=== PATIENT | female | born 1995 | race Caucasian/White ===

== ENCOUNTER 2018-05-21 22:22 | Observation (INO) ==
[2018-05-21 22:59] LABS: Basophils % 0.5 % (0.1-2.0); Eosinophils # 0.1 K/mm3 (0.0-0.4); Hematocrit 39.1 % (37.0-47.0); Hemoglobin 12.5 g/dL (12.2-16.2); Lymphocytes # 3.4 K/mm3 (0.7-4.5); Lymphocytes % 38.8 K/mm3 (10-50); Mean Corpuscular Hemoglobin 28.1 pg (27.0-31.2); Mean Corpuscular Volume 87.7 fl (81-99); Mean Platelet Volume 7.4 fl (7.4-10.4); Monocytes # 0.5 K/mm3 (0.1-1.0); Monocytes % 5.2 % (1.7-9.3); Neutrophils # 4.8 K/mm3 (1.8-7.8); Neutrophils % 54.5 % (37.0-80.0); Platelet Count 254 K/mm3 (142-424); Red Blood Count 4.46 M/mm3 (4.20-5.40); Red Cell Distribution Width 12.4 % (11.5-17.5); White Blood Count 8.8 K/mm3 (4.8-10.8)
[2018-05-21 23:00] LABS: Anion Gap 14.4 mEq/L (5-15); Calcium 8.8 mg/dL (8.5-10.1); Potassium 3.4 mmoL/L (3.5-5.1)
--- NOTE | 2018-05-22 00:37 | Emergency Department Note ---
ED Disposition Clinical Impression: Abscess of skin or subcutaneous tissue Qualifiers: Site of cutaneous abscess: extremity Site of cutaneous abscess of extremity: upper extremity Laterality: left Qualified Code(s): L02.414 - Cutaneous abscess of left upper limb Disposition: Admitted as Observation Condition on Discharge: Good Instructions: DI for Skin Abscess Referrals: Annamarie Garcia [Primary Care Provider] - - Critical Care Critical Care Time: No Attestation: On 05/21/18, the high probability of a clinically significant, sudden or life threatening deterioration of the following system(s) required my full and direct attention, intervention and personal management. The time I documented below is in addition to time spent performing reported procedures but includes the following listed in this critical care notation. Medical Decision Making - Medical Records Medical records reviewed: Yes: I reviewed the patient's medical records. - Tal Inquiry Pt receiving controlled substance: No Vital Signs: 05/21/18 22:28 05/21/18 22:45 Temperature 97.5 F L Temperature Source Oral Pulse Rate [Right Radial] 86 82 Respiratory Rate 16 16 Blood Pressure [Right Arm] 157/92 H 142/87 H Blood Pressure Mean [Right Arm] 113 105 Blood Pressure Source [Right Arm] Automatic Cuff Blood Pressure Position [Right Arm] Sitting 02 Sat by Pulse Oximetry 92 L 95 Oxygen Delivery Method Room Air - Lab Data Lab results reviewed: Yes: I reviewed the patient's lab results. Lab Results 05/21/18 22:38: WBC 8.8, RBC 4.46, Hgb 12.5, Hct 39.1, MCV 87.7, MCH 28.1, MCHC 32.0, RDW 12.4, Plt Count 254, MPV 7.4, Neut % (Auto) 54.5, Lymph % (Auto) 38.8, Chambers % (Auto) 5.2, Eos % (Auto) 1.0, Baso % (Auto) 0.5, Neut # (Auto) 4.8, Lymph # (Auto) 3.4, [place] # (Auto) 0.5, Eos # (Auto) 0.1, Baso # (Auto) 0.0 05/21/18 22:38: Sodium 142, Potassium 3.4 L, Chloride 103, Carbon Dioxide 28, Anion Gap 14.4, BUN 11, Creatinine 0.62, Estimated Creat Clear 216, Estimated GFR 120, Est GFR ( Amer) 146, Glucose 96, Calcium 8.8 05/21/18 22:38: Lactate 0.7 Result diagrams: 05/21/18 22:38 05/21/18 22:38 Orders (Tests/Meds): ORDERS Category Date Time Status Urine , HCG Qual. Stat Lab 05/22/18 00:34 Ordered Blood Culture Stat Micro 05/21/18 22:38 Received - Physician Consults Physician Consulted: archana Reason -: Admission Skin/Abscess/FB HPI - General Chief complaint: Skin/Abscess/Foreign Body Stated complaint: Sore under arm Time Seen by Provider: 05/21/18 23:15 Mode of Arrival: Family Vehicle Limitations: No Limitations Description of Symptoms (Recalled from ER Triage Doc. by RN): left axilla abscess. pt states she went to her pmd on wednesday, 4 days ago, and was placed on bactrim. pt states the redness and pain continues to worsen despite antibx therapy. redness is extending down left inner arm. - History of Present Illness HPI narrative: over the last week has progressive swelling and tenderness lt axilla - pt saw pcp and was placed on abx - pt reports ongoing pain and swelling and no drainage - no hx of diabetes mellitus MD complaint: abscess/boil Onset (ago): day(s) Tetanus up to date: unsure Location: LUE Severity: moderate Associated symptoms: denies other symptoms Treatments prior to arrival: antibiotic - Related Data Home Medications Medication Instructions Recorded Confirmed Cetirizine HCl [Zyrtec] 10 mg PO DAILY 05/21/18 05/21/18 Omeprazole [Omeprazole 20mg Tab] 20 mg PO DAILY 05/21/18 05/21/18 Sulfamethoxazole/Trimethoprim 1 tab PO BID 05/21/18 05/21/18 [Bactrim 400-80 mg (SS) Tablet] Allergies Allergy/AdvReac Type Severity Reaction Status Date / Time No Known Allergies Allergy Verified 05/21/18 22:32 [facility] History I have reviewed the patient's past medical history: Yes Medical History: Denies:: Cancer, Diabetes Mellitus Type 1, Diabetes Mellitus Type 2, MRSA Amputation: No Fractures: No - Social History Smoking Status: Never smoker Alcohol Intake: never - Psychiatric History Expresses thoughts of harming self/others: None Suicide Plan Description: No Plan ROS Obtained: Yes All systems reviewed & no additional complaints - Constitutional Constitutional: Denies fever(s) - Eyes Eyes: Denies change in vision - ENT Ears, Nose, Mouth, and Throat: Denies sore throat - Cardiovascular Cardiovascular: Denies chest pain at rest - Respiratory Respiratory: No cough - Gastrointestinal Gastrointestingal: Denies: abdominal pain - Genitourinary Female Genitourinary: Denies hematuria - Musculoskeletal Musculoskeletal: Denies joint pain, Denies joint swelling - Integumentary/Breasts Skin/Breast: Reports boil, Reports other (reddness and tender lt axilla with abscess 2x3 cm ) - Neurologic Neurologic: Denies seizure-like activity Physical Exam - General General appearance: alert - Head Head exam: normocephalic - Eye Eye exam: Present: PERRL, EOMI - ENT ENT exam: Present: mucous membranes moist - Neck Neck exam: Present: trachea midline - Respiratory Respiratory exam: Absent: respiratory distress - Cardiovascular Cardiovascular exam: Present: regular rate - Abdominal Exam Abdominal exam: Present: soft - Extremities Exam Extremities exam: Present: normal inspection - Neurological Exam Neurological exam: Present: alert, oriented X3, CN II-XII intact - Psychiatric Psychiatric exam: Present: normal affect - Skin Skin exam: Present: other (2x3 cm abscess lt axilla with tenderness )
[2018-05-22 06:51] LABS: Basophils % 0.4 % (0.1-2.0); Eosinophils # 0.1 K/mm3 (0.0-0.4); Eosinophils % 1.1 % (0.1-12.0); Hematocrit 35.6 % (37.0-47.0); Hemoglobin 11.5 g/dL (12.2-16.2); Lymphocytes # 3.1 K/mm3 (0.7-4.5); Lymphocytes % 42.2 K/mm3 (10-50); Mean Corpuscular HGB Conc 32.3 g/dL (31.8-35.4); Mean Corpuscular Hemoglobin 28.3 pg (27.0-31.2); Mean Corpuscular Volume 87.7 fl (81-99); Mean Platelet Volume 8.5 fl (7.4-10.4); Monocytes # 0.5 K/mm3 (0.1-1.0); Monocytes % 6.2 % (1.7-9.3); Neutrophils # 3.7 K/mm3 (1.8-7.8); Platelet Count 218 K/mm3 (142-424); Red Blood Count 4.06 M/mm3 (4.20-5.40); Red Cell Distribution Width 12.3 % (11.5-17.5); White Blood Count 7.4 K/mm3 (4.8-10.8)
[2018-05-22 06:58] LABS: Anion Gap 11.9 mEq/L (5-15); Calcium 8.2 mg/dL (8.5-10.1); Potassium 3.9 mmoL/L (3.5-5.1)
--- NOTE | 2018-05-22 07:20 | History & Physical Report ---
*Admission Date: 05/22/18 *Chief complaint: Left axillary abscess *History of present illness: This is a 23-year-old female who presented to the emergency department with increasing pain and swelling along her left axilla. She was diagnosed with worsening abscess in the surgical wrist was consulted for admission and surgical intervention. Please see a forwarded copy of HPI from the emergency department evaluation below: left axilla abscess. pt states she went to her pmd on wednesday, 4 days ago, and was placed on bactrim. pt states the redness and pain continues to worsen despite antibx therapy. redness is extending down left inner arm. [facility] History Medical History: Denies:: Cancer, Diabetes Mellitus Type 1, Diabetes Mellitus Type 2, MRSA Other Surgeries: Yes: Other (surgery or scoliosis) Amputation: No Fractures: No - *Social History Educational Level: Attended College Smoking Status: Never smoker Alcohol Intake: never Occupational Status: employed Housing: house Household Members: family, children - Psychiatric History Expresses thoughts of harming self/others: None Suicide Plan Description: No Plan *Family Hx:: Coronary Artery Disease, Diabetes Review of Systems - Constitutional Denies body ache(s) - Eyes Denies change in vision - ENT Denies bleeding gums - *Cardiovascular Denies chest pain - *Respiratory Denies cough - *Gastrointestinal Denies abdominal pain - *Genitourinary Denies difficulty urinating - *Musculoskeletal Denies abnormal walking - Integumentary/Breasts Reports redness, Reports boil - *Neurologic Denies seizure-like activity - Psychiatric Denies anxiety - Endocrine Denies cold intolerance - Hematologic/Lymphatic Denies easy bleeding - Allergic/Immunologic Denies GI upset with certain foods Meds Home Medications Medication Instructions Recorded Confirmed Type Cetirizine HCl [Zyrtec] 10 mg PO HS 05/21/18 05/22/18 History Omeprazole [Omeprazole 20mg Tab] 20 mg PO HS 05/21/18 05/22/18 History Sulfamethoxazole/Trimethoprim 1 tab PO BID 05/21/18 05/22/18 History [Bactrim 400-80 mg (SS) Tablet] Ascorbate Calcium [Vitamin C] 500 mg PO HS 05/22/18 05/22/18 History Buspirone HCl [Buspar 10mg tablet] 10 mg PO HS 05/22/18 05/22/18 History Ergocalciferol (Vitamin D2) 400 unit PO HS 05/22/18 05/22/18 History [Vitamin D] L.acidoph,Paracasei, B.lactis 1 each PO HS 05/22/18 05/22/18 History [Probiotic] Norethindrone AC-Eth Estradiol 1 each PO HS 05/22/18 05/22/18 History [Junel 1 mg-20 Mcg Tablet] [place]-3 Fatty Acids [Fish Oil] 300 mg PO HS 05/22/18 05/22/18 History Allergies Allergy/AdvReac Type Severity Reaction Status Date / Time No Known Allergies Allergy Verified 05/21/18 22:32 Exam Vital signs and Labs for Last 24 Hours: Temp Pulse Resp BP Pulse Ox 98.6 F 100 H 18 113/49 L 97 05/22/18 05:05 05/22/18 05:05 05/22/18 05:05 05/22/18 05:05 05/22/18 05:05 Laboratory Results - last 24 hr 05/21/18 22:38: WBC 8.8, RBC 4.46, Hgb 12.5, Hct 39.1, MCV 87.7, MCH 28.1, MCHC 32.0, RDW 12.4, Plt Count 254, MPV 7.4, Neut % (Auto) 54.5, Lymph % (Auto) 38.8, [place] % (Auto) 5.2, Eos % (Auto) 1.0, Baso % (Auto) 0.5, Neut # (Auto) 4.8, Lymph # (Auto) 3.4, [place] # (Auto) 0.5, Eos # (Auto) 0.1, Baso # (Auto) 0.0 05/21/18 22:38: Sodium 142, Potassium 3.4 L, Chloride 103, Carbon Dioxide 28, Anion Gap 14.4, BUN 11, Creatinine 0.62, Estimated Creat Clear 216, Estimated GFR 120, Est GFR ( Amer) 146, Glucose 96, Calcium 8.8 05/21/18 22:38: Lactate 0.7 05/22/18 00:43: Urine HCG, Qual Negative 05/22/18 06:40: WBC 7.4, RBC 4.06 L, Hgb 11.5 L, Hct 35.6 L, MCV 87.7, MCH 28.3, MCHC 32.3, RDW 12.3, Plt Count 218, MPV 8.5, Neut % (Auto) 50.0, Lymph % (Auto) 42.2, [place] % (Auto) 6.2, Eos % (Auto) 1.1, Baso % (Auto) 0.4, Neut # (Auto) 3.7, Lymph # (Auto) 3.1, [place] # (Auto) 0.5, Eos # (Auto) 0.1, Baso # (Auto) 0.0 05/22/18 06:40: Sodium 140, Potassium 3.9, Chloride 105, Carbon Dioxide 27, Anion Gap 11.9, BUN 10, Creatinine 0.61, Estimated Creat Clear 222, Estimated GFR 123, Est GFR ( Amer) 148, Glucose 101, Calcium 8.2 L I & O for Last 24 hours: Intake & Output 05/19/18 05/20/18 05/21/18 05/22/18 11:59 11:59 11:59 11:59 Intake Total 247 / 247 Balance 247 / 247 Weight 214 lb 4 oz - Constitutional no acute distress - *Routine HEENT Exam Head: Present: normocephalic, atraumatic - *Routine Neck Exam Present: full ROM - Routine Chest/Breast/Axilla Exam Chest wall: Absent: tenderness - *Routine Respiratory Exam Absent: respiratory distress - *Routine Cardiovascular Exam Present: RRR - *Routine Abdominal Exam Present: soft - *Routine Extremities Exam Present: full ROM. Absent: cyanosis, clubbing, edema - Routine Back/Spine/Pelvis Exam Back/Spine: Present: full ROM - *Routine Skin Exam Comments: left axillary abscess with mild blush - *Routine Neurological Exam Present: alert, oriented X3 - Routine Psychiatric Exam Present: normal affect Assessment and Plan (1) Abscess of left axilla Current visit: Yes Status: Acute Category: Surgical Code(s): L02.412 - Cutaneous abscess of left axilla Incision and drainage of left axillary abscess this morning. I have discussed the risks and benefits including, but not limited to: Bleeding Infection Damage to surrounding tissue Inherent risks of sedation The patient agrees to proceed.
--- NOTE | 2018-05-22 09:07 | Progress Note ---
[facility] Anesthesia Checklist - Patient Identification Patient Identification: Arm Band, Verbal (Name & ) - Structural Data Admitted From: Home Planned Operative Procedure/s: Left axillary I&D Consent for Planned Operative Procedure(s) Verified: Yes Verified Documents: Surgical Consent, History and Physical - NPO Status Verified Time NPO: 20:00 - Chart Verification Results Verified: HCG - Additional verifications Patient : No Anesthesia Reactions: No - Airway Assessment C-Spine Mobility Assessed: Yes TMJ Mobility Assessed: Yes Dentition: Good Dentition - Neurological Assessment Level of Consciousness: Awake Hx Seizures: No Numbness or tingling in extremities: No - Anesthesia Plan Anesthesia Risk discussed: Yes Anesthesia Plan: Verified ASA Class: II Anesthesia Type: General [facility] History I have reviewed the patient's past medical history: Yes Medical History: Reports:: Gastroesophageal Reflux Disease(GERD) Denies:: Cancer, Diabetes Mellitus Type 1, Diabetes Mellitus Type 2, MRSA Other Surgeries: Yes: Other (back fusion) Amputation: No Fractures: No - *Social History Educational Level: Attended College Smoking Status: Never smoker Alcohol Intake: never Occupational Status: employed Housing: house Household Members: family, children - Psychiatric History Expresses thoughts of harming self/others: None Suicide Plan Description: No Plan *Family Hx:: Coronary Artery Disease, Diabetes
--- NOTE | 2018-05-22 09:37 | Pharmacy Consult Notes ---
[facility] Pharmacy VTE Monitoring - Patient Demographics Admission date: 05/21/18 Report Date: 05/22/18 Time: 09:36 Allergies/Adverse Reactions: Patient Allergies No Known Allergies Allergy (Verified 05/21/18 22:32) Height: 1.75 m Weight: 97.182 kg Patient Problems: Current Active Problems Abscess of skin or subcutaneous tissue (Acute) Abscess of left axilla (Acute) - VTE Risk Labs: VTE Related Lab Results Hgb 11.5 g/dL (12.2-16.2) L 05/22/18 06:40 Hct 35.6 % (37.0-47.0) L 05/22/18 06:40 Plt Count 218 K/mm3 (142-424) 05/22/18 06:40 BUN 10 mg/dL (7-18) 05/22/18 06:40 Creatinine 0.61 mg/dL (0.55-1.02) 05/22/18 06:40 Estimated Creat Clear 222 mL/min (0-300) 05/22/18 06:40 Was VTE Risk Assessment Performed: Yes VTE Score: 0 VTE Risk Level: Very Low Risk Clinical Trial Participant: No - Prophylaxis VTE Prophylaxis Ordered?: Yes Types of VTE Prophylaxis: TEDS Knee High
--- NOTE | 2018-05-22 09:51 | Operative Note ---
Date of procedure: 05/22/18 Pre-op Diagnosis:: Left axillary abscess Post-op Diagnosis:: Same Procedure performed:: Incision and drainage of left axillary abscess Surgeon:: Bautista Tavarez MD Anesthesia: LMA Estimated blood loss (mL): 15 Operative findings:: Complex abscess at vertex of left axilla with projection toward the arm and projection towards the chest Operative note:: After informed consent was obtained the patient was taken to the operating room and placed in the supine position general anesthesia with laryngeal mask airway was achieved. The left axilla was prepped and draped in a sterile fashion. After infiltration of local anesthetic an elliptical incision was made overlying the 2 separate areas of centralized fluctuance. One opening was just of the "chest side" of the apex of the axilla and one opening was just of the "arm side" of the apex. Fluid was obtained for Gram stain and culture as an underlying complex cavity was encountered. The entire area was carefully evacuated and moistened Kerlix was placed in position. The Kerlix was then infiltrated with 1% lidocaine and dressings were applied for compression. The patient was transferred to recovery in stable condition. Condition: stable Disposition: PACU Specimens:: Fluid for Gram stain/culture Complications:: No immediate
--- NOTE | 2018-05-22 09:56 | Progress Note ---
[facility] Anesthesia Record Part I Intake, IV Amount: 200 Estimated blood loss (mL): 20 Urine output (mL): 0 (NM) Blood Products used (#): none Blood Pressure: 150/107 SaO2: 97 Pulse Rate: 92 Respiratory Rate: 12 Temperature: 97.0 F Patient is:: Awake, Stable Stable to PACU at:: 09:53
--- NOTE | 2018-05-22 09:57 | Progress Note ---
[facility] Anesthesia Record Part II Discharge Time: 10:23 Destination: Medical Surgical Department PACU nurse assessment reviewed?: Yes Patient Condition:: Good Anesthesia Complications:: None
--- NOTE | 2018-05-23 07:06 | Progress Note ---
Subjective Patient reports: no new complaints, other (resting) Exam Vital signs and Labs for Last 24 Hours: Temp Pulse Resp BP Pulse Ox 97.9 F 79 16 143/75 H 97 05/23/18 04:00 05/23/18 04:00 05/23/18 04:00 05/23/18 04:00 05/23/18 04:00 Laboratory Results - last 24 hr 05/22/18 06:40: Sodium 140, Potassium 3.9, Chloride 105, Carbon Dioxide 27, Anion Gap 11.9, BUN 10, Creatinine 0.61, Estimated Creat Clear 222, Estimated GFR 123, Est GFR ( Amer) 148, Glucose 101, Calcium 8.2 L I & O for Last 24 hours: Intake & Output 05/20/18 05/21/18 05/22/18 05/23/18 11:59 11:59 11:59 11:59 Intake Total 447 / 447 2085 Balance 447 / 447 2085 Weight 214 lb 4 oz - Constitutional no acute distress - *Routine Respiratory Exam Absent: respiratory distress - *Routine Cardiovascular Exam Present: RRR - *Routine Skin Exam Comments: dressings intact Progress Note: A&P (1) Abscess of left axilla Status: Acute Assessment and plan: Likely discharge home later today after dressing change Current Visit: Yes
--- NOTE | 2018-05-23 08:07 | Discharge Summary ---
General - General Admission date:: 05/22/18 Discharge date: 05/23/18 HPI HPI: This is a 23-year-old female who presented to the emergency department with increasing pain and swelling along her left axilla. She was diagnosed with worsening abscess in the surgical wrist was consulted for admission and surgical intervention. Please see a forwarded copy of HPI from the emergency department evaluation below: left axilla abscess. pt states she went to her pmd on wednesday, 4 days ago, and was placed on bactrim. pt states the redness and pain continues to worsen despite antibx therapy. redness is extending down left inner arm. Hospital Course Hospital Course: The patient underwent incision and drainage of left axillary abscess. Please see operative report for detail. She remained afebrile with stable normal vital signs and was deemed appropriate for discharge on postoperative day 1. Objective Vital signs: Temp Pulse Resp BP Pulse Ox 97.9 F 79 16 143/75 H 97 05/23/18 04:00 05/23/18 04:00 05/23/18 04:00 05/23/18 04:00 05/23/18 04:00 no acute distress - *Routine HEENT Exam Head: Present: normocephalic, atraumatic - *Routine Neck Exam Present: full ROM - Routine Chest/Breast/Axilla Exam Chest wall: Absent: tenderness - *Routine Respiratory Exam Absent: respiratory distress - *Routine Cardiovascular Exam Present: RRR - *Routine Abdominal Exam Present: soft - *Routine Extremities Exam Present: full ROM Comments: left axillary abscess - *Routine Skin Exam Comments: left axillary abscess - *Routine Neurological Exam Present: alert, oriented X3 - Routine Psychiatric Exam Present: normal affect DS: Diagnosis - Discharge Diagnosis (1) Abscess of left axilla Status: Acute Discharge Plan - Patient Discharge Instructions ACTIVITY: Continue current activity DIET: regular diet Patient Instructions: Surgical Site Infection - Follow up Plan Follow up with: Bautista Tavarez MD [Staff Physician] - 1 week Disposition: Home, Self-Longterm Medications: Home Medications Medication Instructions Recorded Confirmed Type Omeprazole [Omeprazole 20mg Tab] 20 mg PO HS 05/21/18 05/22/18 History Sulfamethoxazole/Trimethoprim 1 tab PO BID 05/21/18 05/22/18 History [Bactrim 400-80 mg (SS) Tablet] Ascorbate Calcium [Vitamin C] 500 mg PO HS 05/22/18 05/22/18 History Ergocalciferol (Vitamin D2) 400 unit PO HS 05/22/18 05/22/18 History [Vitamin D] L.acidoph,Paracasei, B.lactis 1 each PO HS 05/22/18 05/22/18 History [Probiotic] Loratadine [Claritin 10mg Tablet] 10 mg PO DAILY 05/22/18 05/22/18 History Norethindrone AC-Eth Estradiol 1 each PO HS 05/22/18 05/22/18 History [Junel 1 mg-20 Mcg Tablet] [place]-3 Fatty Acids [Fish Oil] 300 mg PO HS 05/22/18 05/22/18 History Prescriptions/Medication Reconciliation: New Sulfamethoxazole/Trimethoprim [Bactrim DS tablet] 1 each PO BID tablet Continue Sulfamethoxazole/Trimethoprim [Bactrim 400-80 mg (SS) Tablet] 1 tab PO BID Omeprazole [Omeprazole 20mg Tab] 20 mg PO HS Ascorbate Calcium [Vitamin C] 500 mg PO HS Loratadine [Claritin 10mg Tablet] 10 mg PO DAILY Norethindrone AC-Eth Estradiol [Junel 1 mg-20 Mcg Tablet] 1 each PO HS Ergocalciferol (Vitamin D2) [Vitamin D] 400 unit PO HS L.acidoph,Paracasei, B.lactis [Probiotic] 1 each PO HS [place]-3 Fatty Acids [Fish Oil] 300 mg PO HS
== END 2018-05-23 09:30 | disposition home or self-care (01) ==
LOC: ER 22:22 → 2ND 22:22
PROVIDERS: ADMIT Surgery; ATTEND Surgery

== ENCOUNTER 2018-05-24 16:45 | Outpatient (CLI) | payer BC, SELFPAY ==
--- NOTE | 2018-05-24 17:38 | PC.NURSE ---
05/24/2018-1645, pt here for daily dressing change of lt axilla. pt had i&d of axilla abcess. old drsg removed-mod amt of serosang drng noted on abd pad. old packing removed revealing 2 open areas to upper and lower axilla. open wounds irrigated using sterile saline and packed with 2x2 gauze moistened with sterile saline using sterile q-tip. abd folded and placed over areas that were packed and secured with scott wrap.
== END 2018-05-24 17:20 | disposition home or self-care (01) ==
LOC: INF 17:32
PROVIDERS: PCP Physician Assistant; Visit Provider Surgery
DX: Z48.00 Encounter for change or removal of nonsurgical wound dressing (principal); L02.412 Cutaneous abscess of left axilla
CPT/HCPCS: G0463

== ENCOUNTER 2018-05-25 15:45 | Outpatient (CLI) | payer BC, SELFPAY ==
--- NOTE | 2018-05-25 17:07 | PC.NURSE ---
1555 - REMOVED SANJU WRAP AND ABD PAD FROM WOUND. MOISTENED PACKING WITH NS AND GENTLY REMOVED. 2 WOUNDS NOTED TO LEFT AXILLA AND IRRIGATED WITH NS. WOUND BEDS BLOODY AND DRAINING MODERATE AMOUNT OF BLOOD. PACKED EACH WOUND WITH A NS MOISTENED 2X2, COVERED WITH ABD PAD FOLDED IN HALF, AND HELD IN PLACE USING SANJU WRAP.
== END 2018-05-25 16:35 | disposition home or self-care (01) ==
LOC: INF 15:55
PROVIDERS: PCP Physician Assistant; Visit Provider Surgery
DX: Z48.00 Encounter for change or removal of nonsurgical wound dressing (principal); L02.412 Cutaneous abscess of left axilla
CPT/HCPCS: G0463

== ENCOUNTER 2018-05-26 15:33 | Outpatient (CLI) | payer BC, SELFPAY | END 2018-05-26 16:25 | disposition home or self-care (01) | LOC: INF 15:33 | PROVIDERS: PCP Physician Assistant; Visit Provider Surgery | DX: Z48.00 Encounter for change or removal of nonsurgical wound dressing (principal); L02.412 Cutaneous abscess of left axilla | CPT/HCPCS: G0463 ==

== ENCOUNTER 2018-05-27 15:43 | Outpatient (CLI) | payer BC, SELFPAY | END 2018-05-27 16:25 | disposition home or self-care (01) | LOC: INF 15:43 | PROVIDERS: PCP Physician Assistant; Visit Provider Surgery | DX: Z48.00 Encounter for change or removal of nonsurgical wound dressing (principal); L02.412 Cutaneous abscess of left axilla | CPT/HCPCS: G0463 ==

== ENCOUNTER → 2018-05-28 15:14 | Outpatient (CLI) | payer BC, SELFPAY ==
[2018-05-28 15:51] VITALS: BP 139/85; PULSE 91; RESP 18; TEMP 37.4; O2SAT 100
[2018-05-28 15:58] VITALS: BP 140/85; PULSE 90; RESP 16; TEMP 37.3; O2SAT 100
== END ==
PROVIDERS: PCP Physician Assistant; Visit Provider Surgery
DX: Z48.00 Encounter for change or removal of nonsurgical wound dressing (principal); L02.412 Cutaneous abscess of left axilla
CPT/HCPCS: G0463

== ENCOUNTER → 2018-05-29 16:50 | Outpatient (CLI) | payer BC, SELFPAY ==
[2018-05-29 17:30] VITALS: BP 135/72; BP 146/79; PULSE 70; PULSE 84; RESP 17; RESP 18; TEMP 36.4; TEMP 36.6; O2SAT 96; O2SAT 98
== END ==
PROVIDERS: PCP Physician Assistant; Visit Provider Surgery
DX: Z48.00 Encounter for change or removal of nonsurgical wound dressing (principal); L02.412 Cutaneous abscess of left axilla
CPT/HCPCS: G0463

== ENCOUNTER 2018-05-30 16:00 | Outpatient (CLI) | payer BC, SELFPAY | END 2018-05-30 16:25 | disposition home or self-care (01) | LOC: INF 16:52 | PROVIDERS: PCP Physician Assistant; Visit Provider Surgery | DX: Z48.00 Encounter for change or removal of nonsurgical wound dressing (principal); L02.412 Cutaneous abscess of left axilla | CPT/HCPCS: G0463 ==

== ENCOUNTER 2018-06-01 13:57 | Outpatient (CLI) | payer BC, SELFPAY | END 2018-06-01 14:25 | disposition home or self-care (01) | LOC: INF 13:57 | PROVIDERS: Visit Provider Surgery | DX: L02.412 Cutaneous abscess of left axilla (principal) | CPT/HCPCS: G0463 ==

== ENCOUNTER 2018-06-02 13:15 | Outpatient (CLI) | payer BC, SELFPAY | END 2018-06-02 13:35 | disposition home or self-care (01) | LOC: INF 13:22 | PROVIDERS: Visit Provider Surgery | DX: Z48.00 Encounter for change or removal of nonsurgical wound dressing (principal); L02.412 Cutaneous abscess of left axilla | CPT/HCPCS: G0463 ==

== ENCOUNTER → 2018-06-03 21:11 | Outpatient (CLI) | payer BC, SELFPAY | PROVIDERS: PCP Physician Assistant; Visit Provider Surgery | DX: Z48.00 Encounter for change or removal of nonsurgical wound dressing (principal); L02.412 Cutaneous abscess of left axilla | CPT/HCPCS: G0463 ==

== ENCOUNTER 2018-06-04 22:22 | Outpatient (CLI) | payer BC, SELFPAY ==
[2018-06-04 22:53] VITALS: BP 129/83; PULSE 76; RESP 16; TEMP 36.6; O2SAT 99; BMI 31.3
[2018-06-04 23:02] VITALS: BP 129/83; PULSE 76; RESP 16; TEMP 36.6; O2SAT 99
== END 2018-06-04 23:03 | disposition home or self-care (01) ==
LOC: INF 22:24
PROVIDERS: PCP Physician Assistant; Visit Provider Surgery
DX: Z48.00 Encounter for change or removal of nonsurgical wound dressing (principal); L02.412 Cutaneous abscess of left axilla
CPT/HCPCS: G0463

== ENCOUNTER 2018-06-06 16:53 | Outpatient (CLI) | payer BC, SELFPAY | END 2018-06-06 17:15 | disposition home or self-care (01) | LOC: INF 16:53 | PROVIDERS: Visit Provider Surgery | DX: Z48.00 Encounter for change or removal of nonsurgical wound dressing (principal); L02.412 Cutaneous abscess of left axilla | CPT/HCPCS: G0463 ==

== ENCOUNTER 2018-06-07 16:26 | Outpatient (CLI) | payer BC, SELFPAY | END 2018-06-07 17:01 | disposition home or self-care (01) | LOC: INF 16:26 | PROVIDERS: Visit Provider Surgery | DX: Z48.00 Encounter for change or removal of nonsurgical wound dressing (principal); L02.412 Cutaneous abscess of left axilla | CPT/HCPCS: G0463 ==

== ENCOUNTER 2018-06-08 16:30 | Outpatient (CLI) | payer BC, SELFPAY | END 2018-06-08 17:00 | disposition home or self-care (01) | LOC: INF 16:32 | PROVIDERS: Visit Provider Surgery | DX: Z48.00 Encounter for change or removal of nonsurgical wound dressing (principal); L02.412 Cutaneous abscess of left axilla | CPT/HCPCS: G0463 ==

== ENCOUNTER 2018-06-09 16:48 | Outpatient (CLI) | payer BC, SELFPAY | END 2018-06-09 17:27 | disposition home or self-care (01) | LOC: INF 16:48 | PROVIDERS: Visit Provider Surgery | DX: Z48.00 Encounter for change or removal of nonsurgical wound dressing (principal); L02.412 Cutaneous abscess of left axilla | CPT/HCPCS: G0463 ==

== ENCOUNTER 2018-06-10 16:38 | Outpatient (CLI) | payer BC, SELFPAY | END 2018-06-10 17:10 | disposition home or self-care (01) | LOC: INF 16:38 | PROVIDERS: Visit Provider Surgery | DX: Z48.00 Encounter for change or removal of nonsurgical wound dressing (principal); L02.412 Cutaneous abscess of left axilla | CPT/HCPCS: G0463 ==

== ENCOUNTER 2018-06-11 20:21 | Outpatient (CLI) | payer BC, SELFPAY ==
[2018-06-11 20:21] VITALS: BP 140/75; PULSE 84; RESP 18; TEMP 36.6; O2SAT 99
[2018-06-11 20:32] VITALS: BP 140/75; PULSE 84; RESP 18; TEMP 36.6; O2SAT 99; BMI 31.3
== END 2018-06-11 21:06 | disposition home or self-care (01) ==
LOC: INF 20:24
PROVIDERS: PCP Physician Assistant; Visit Provider Surgery
DX: Z48.00 Encounter for change or removal of nonsurgical wound dressing (principal); L02.412 Cutaneous abscess of left axilla
CPT/HCPCS: G0463

== ENCOUNTER → 2018-06-12 15:38 | Outpatient (CLI) | payer BC, SELFPAY ==
[2018-06-12 16:06] VITALS: BP 146/78; PULSE 79; RESP 18; TEMP 36.5; O2SAT 95
[2018-06-12 16:24] VITALS: BP 143/75; PULSE 78; RESP 18; TEMP 36.5; O2SAT 96
== END ==
PROVIDERS: PCP Physician Assistant; Visit Provider Surgery
DX: Z48.00 Encounter for change or removal of nonsurgical wound dressing (principal); L02.412 Cutaneous abscess of left axilla
CPT/HCPCS: G0463

== ENCOUNTER 2018-06-13 16:29 | Outpatient (CLI) | payer BC, SELFPAY ==
--- NOTE | 2018-06-13 17:08 | PC.NURSE ---
PT IS STATUS POST I AND D TO LEFT AXILLA; INITIALLY THERE WERE TWO AREAS THAT WE WERE PACKING WITH GAUZE; CURRENTLY THE TOP AREA IS CLOSED AND IS A SCAB; THE LOWER AREA RIGHT BELOW THE AXILLA IS STILL OPEN AND CAN PACK WITH LESS THAT 1/4 OF A 2X2; INSTRUCTED THE PATIENT AND BOYFRIEND ON HOW TO DO THE REMAINDER OF THE DRESSING AT HOME; THE PATIENTS MOM HAS BEEN DOING THE DRESSING CHANGE AT HOME OVER THE WEEKEND; INSTRUCTED PATIEINT TO CONTACT US IF SHE HAD ANY QUESTIONS AND NEEDED US TO RESUME THE DRESSING CARE;
== END 2018-06-13 17:10 | disposition home or self-care (01) ==
LOC: INF 16:29
PROVIDERS: Visit Provider Surgery
DX: Z48.00 Encounter for change or removal of nonsurgical wound dressing (principal); L02.412 Cutaneous abscess of left axilla
CPT/HCPCS: G0463

== ENCOUNTER 2018-06-25 14:05 | Observation (INO) ==
[2018-06-25 14:17] LABS: Microscopic, Urine URINE MICROSCOPIC (MICROSCOPIC)
[2018-06-25 14:19] LABS: Appearance,Urine CLOUDY (Clear); Bilirubin,Urine Negative (Negative); Blood, Urine 2+ (Negative); Color,Urine YELLOW (Yellow); Glucose,Urine (UA) Negative (Negative); Ketones,Urine Negative (Negative); Leukocyte Esterase,Urine TRACE (Negative); Protein,Urine TRACE (Negative); Specific Gravity, Urine >= 1.030 (1.005-1.030); Urobilinogen,Urine 0.2 EU/dl (0.2)
--- NOTE | 2018-06-25 14:20 | Emergency Department Note ---
ED Disposition Clinical Impression: Acute pharyngitis, UTI (urinary tract infection), Dehydration, Cholestasis, Splenomegaly, Intractable nausea and vomiting Disposition: Still a Patient Condition on Discharge: Fair Referrals: Annamarie Garcia [Primary Care Provider] - - Critical Care Critical Care Time: No Attestation: On , the high probability of a clinically significant, sudden or life threatening deterioration of the following system(s) required my full and direct attention, intervention and personal management. The time I documented below is in addition to time spent performing reported procedures but includes the following listed in this critical care notation. Medical Decision Making - Tal Inquiry Pt receiving controlled substance: No Tal was queried for this patient: No Vital Signs: 06/25/18 14:05 06/25/18 14:38 06/25/18 15:23 Temperature 98.0 F Temperature Source Oral Pulse Rate [Right Brachial] 68 99 H 93 H Respiratory Rate 18 Blood Pressure [Right Arm] 137/110 H 136/86 132/75 Blood Pressure Mean [Right Arm] 119 102 94 Blood Pressure Source [Right Arm] Automatic Cuff Automatic Cuff Automatic Cuff Blood Pressure Position [Right Arm] Sitting Sitting Supine 02 Sat by Pulse Oximetry 100 99 99 Oxygen Delivery Method Room Air 06/25/18 15:30 06/25/18 15:56 06/25/18 17:20 Temperature Temperature Source Pulse Rate [Right Brachial] 86 91 H 86 Respiratory Rate Blood Pressure [Right Arm] 139/78 141/85 H 153/85 H Blood Pressure Mean [Right Arm] 98 103 107 Blood Pressure Source [Right Arm] Automatic Cuff Automatic Cuff Automatic Cuff Blood Pressure Position [Right Arm] Supine Supine Sitting 02 Sat by Pulse Oximetry 99 97 98 Oxygen Delivery Method 06/25/18 17:54 06/25/18 18:00 06/25/18 18:47 Temperature Temperature Source Pulse Rate [Right Brachial] 85 87 Respiratory Rate Blood Pressure [Right Arm] 126/73 120/85 129/86 Blood Pressure Mean [Right Arm] 90 96 100 Blood Pressure Source [Right Arm] Automatic Cuff Automatic Cuff Blood Pressure Position [Right Arm] Sitting Sitting 02 Sat by Pulse Oximetry 97 98 Oxygen Delivery Method - Lab Data Lab Results 06/25/18 14:12: Urine Color Yellow, Urine Appearance Cloudy, Urine pH 6.0, Ur Specific [place] >= 1.030, Urine Protein Trace, Urine Glucose (UA) Negative, Urine Ketones Negative, Urine Blood 2+, Urine Nitrate Negative, Urine Bilirubin Negative, Urine Urobilinogen 0.2, Ur Leukocyte Esterase Trace, Urine RBC 5-10, Urine WBC 20-50, Ur Squamous Epith Cells Tntc, Urine Bacteria 4+, Urine Mucus 3+ 06/25/18 14:12: Urine HCG, Qual Negative 06/25/18 14:20: WBC 10.8, RBC 4.16 L, Hgb 12.5, Hct 36.4 L, MCV 87.4, MCH 29.9, MCHC 34.3, RDW 12.6, Plt Count 190, MPV 7.1 L, Neut % (Auto) 80.3 H, Lymph % (Auto) 14.9, [place] % (Auto) 3.9, Eos % (Auto) 0.8, Baso % (Auto) 0.2, Neut # (Auto) 8.7 H, Lymph # (Auto) 1.6, [place] # (Auto) 0.4, Eos # (Auto) 0.1, Baso # (Auto) 0.0 06/25/18 14:20: Sodium 136, Potassium 3.3 L, Chloride 100, Carbon Dioxide 26, Anion Gap 13.3, BUN 8, Creatinine 0.68, Estimated Creat Clear 204, Estimated GFR 108, Est GFR ( Amer) 131, Glucose 115 H, Calcium 8.3 L, Total Bilirubin 0.4, AST 16, ALT 44, Alkaline Phosphatase 97, Total Protein 7.6, Albumin 3.4, Globulin 4.2 H, Albumin/Globulin Ratio 0.8 L, Amylase 29, Lipase 82 Result diagrams: 06/25/18 14:20 06/25/18 14:20 Orders (Tests/Meds): ED MEDICATIONS Generic Name Dose Route Start Last Admin Trade Name Freq PRN Reason Stop Dose Admin Sodium Chloride 1,000 mls @ 999 mls/hr 06/25/18 18:15 06/25/18 18:55 Sod Chlor 0.9% 1000ml Bag IV 06/25/18 19:15 999 mls/hr .Q1H1M TONY Administration Sodium Chloride 10 ml 06/25/18 16:47 06/25/18 16:48 Rad-Saline Flush 10ml Syringe IV 07/25/18 16:46 10 ml NEEDED PRN Administration Maintain IV Site Discontinued Medications Generic Name Dose Route Start Last Admin Trade Name Freq PRN Reason Stop Dose Admin Diatrizoate Meglum/Diatrizoate Sod 30 ml 06/25/18 14:21 06/25/18 14:38 Gastrografin 66%-10% 30ml PO 06/25/18 14:22 30 ml ONCE ONE Administration Sodium Chloride 1,000 mls @ 999 mls/hr 06/25/18 14:30 06/25/18 14:38 Sod Chlor 0.9% 1000ml Bag IV 06/25/18 15:30 999 mls/hr .Q1H1M TONY Administration Ceftriaxone Sodium 1 gm/ 50 mls @ 100 mls/hr 06/25/18 14:48 06/25/18 14:51 Sodium Chloride IV 06/25/18 15:17 100 mls/hr ONCE ONE Administration Protocol Iopamidol 75 ml 06/25/18 16:47 06/25/18 16:48 [id number]; 75ml Vial IV 06/25/18 16:48 75 ml ONCE ONE Administration Protocol Ketorolac Tromethamine 30 mg 06/25/18 14:21 06/25/18 14:38 Toradol 30mg/Ml Vial IV 06/25/18 14:22 30 mg ONCE ONE Administration Morphine Sulfate 2 mg 06/25/18 15:19 06/25/18 15:44 Morphine 2mg/Ml Syringe IV 06/25/18 15:20 2 mg ONCE ONE Administration Pantoprazole Sodium 40 mg 06/25/18 18:03 06/25/18 18:55 Protonix 40mg Vial IV 06/25/18 18:04 40 mg ONCE ONE Administration Potassium Chloride 40 meq 06/25/18 15:19 06/25/18 15:44 Klor-Con 20meq Tablet PO 06/25/18 15:20 40 meq ONCE ONE Administration Promethazine HCl 12.5 mg 06/25/18 18:02 06/25/18 18:54 Phenergan 25mg/Ml 1ml Vial IV 06/25/18 18:03 12.5 mg ONCE ONE Administration Sodium Chloride 25 ml 06/25/18 18:02 06/25/18 18:54 Sod Chlor 0.9% 25ml Bag IV 06/25/18 18:03 25 ml ONCE ONE Administration Sodium Chloride 8 ml 06/25/18 18:03 06/25/18 18:54 Saline Flush 10ml Syringe IV 06/25/18 18:04 8 ml ONCE ONE Administration ORDERS Category Date Time Status Urinalysis and Microscopic Stat Lab 06/25/18 14:12 Ordered Urine Culture Stat Micro 06/25/18 14:12 Received - CT Data CT Scan: Abdomen, Pelvis Time Received: 17:[address] Reviewed: Yes: I have viewed the radiologist's interpretation Preliminary Findings: Abnormal Findings Narrative: ....... IMPRESSION: ...... 1. Abnormal gallbladder. Cholelithiasis- Innumerable tiny stones with sludge. Layering at the posterior half of the gallbladder. 2. No acute findings abdomen/ pelvis otherwise evident. . Appendix normal. No urinary tract calculi nor obstruction. . 3. Spleen upper normal size 13.5 cm length. Medical Decision Narrative: ...... IMPRESSION: ...... 1. Abnormal gallbladder. Cholelithiasis- Innumerable tiny stones with sludge. Layering at the posterior half of the gallbladder. 2. No acute findings abdomen/ pelvis otherwise evident. . Appendix normal. No urinary tract calculi nor obstruction. . 3. Spleen upper normal size 13.5 cm length. The patient underwent negative CT scan for appendicitis was positive for cholelithiasis and her urine analysis positive for UTI she received IV antibiotics. Remained to be nauseous so I called Dr. Murdock at 1802 declined to admit her requested that the patient to be given more fluids and antiemetics in the ED. Patient had low potassium she received a potassium supplement. She was given another bag of IV fluid and tolerated p.o. intake. I repeated examination her abdomen was soft with mild tenderness the periumbilical area to deep palpation without guarding or rigidity. He had no pain in the right upper quadrant over the right lower quadrant. Patient continues to be symptomatic with periumbilical pain and nausea, he did express concern about appendicitis so I contacted Dr. Bazzi again who agreed to admit her for observation. Abdominal Pain HPI - General Stated Complaint: Abdominal Pain Time Seen by Provider: 06/25/18 14:17 Mode of Arrival: Ambulatory Limitations: No Limitations - History of Present Illness HPI narrative: 23 years old white female with no seen except for strep pharyngitis that was treated yesterday with Bicillin shot. Yesterday at 4 PM she developed sharp mid abdominal pain radiating across the abdomen with no fever no chills no nausea no vomiting no diarrhea. Last bowel movement was an hour ago. The pain is sharp in character with no precipitating or relieving factors no radiation progressively gotten worse to 05/18 so she came to the ED today looks in no cardiopulmonary distress. She denies having hemoptysis hematemesis coffee- ground emesis melanotic stool or bleeding per rectum. He denies having hemoptysis dysuria hematuria or frequency. Her throat is doing better. MD complaint: abdominal pain Onset (ago): hour(s) (22 hours.) Location: periumbilical Severity: moderate Quality: stabbing Radiation: none Migration to: no migration Relieving factors: nothing Exacerbating factors: nothing Associated symptoms: denies other symptoms - Related Data Home Medications Medication Instructions Recorded Confirmed Omeprazole [Omeprazole 20mg Tab] 20 mg PO HS 05/21/18 06/10/18 Sulfamethoxazole/Trimethoprim 1 tab PO BID 05/21/18 06/10/18 [Bactrim 400-80 mg (SS) Tablet] Ascorbate Calcium [Vitamin C] 500 mg PO HS 05/22/18 06/10/18 Ergocalciferol (Vitamin D2) 400 unit PO HS 05/22/18 06/10/18 [Vitamin D] L.acidoph,Paracasei, B.lactis 1 each PO HS 05/22/18 06/10/18 [Probiotic] Loratadine [Claritin 10mg Tablet] 10 mg PO DAILY 05/22/18 06/10/18 Norethindrone AC-Eth Estradiol 1 each PO HS 05/22/18 06/10/18 [Junel 1 mg-20 Mcg Tablet] [place]-3 Fatty Acids [Fish Oil] 300 mg PO HS 05/22/18 06/10/18 Allergies Allergy/AdvReac Type Severity Reaction Status Date / Time No Known Allergies Allergy Verified 05/31/18 10:22 [facility] History I have reviewed the patient's past medical history: Yes Medical History: Reports:: Gastroesophageal Reflux Disease(GERD) Denies:: Cancer, Diabetes Mellitus Type 1, Diabetes Mellitus Type 2, MRSA, Seizures Other Surgeries: Yes: Other Amputation: No Fractures: No - Social History Smoking Status: Never smoker Alcohol Intake: never Occupational Status: employed Housing: house Household Members: family, children Family Hx:: Coronary Artery Disease, Diabetes ROS Obtained: Yes All systems reviewed & no additional complaints Physical Exam - General General appearance: alert, in no apparent distress - Head Head exam: atraumatic, normocephalic, normal inspection - Eye Eye exam: Present: normal appearance, PERRL, EOMI. Absent: scleral icterus, nystagmus - ENT ENT exam: Present: normal exam, normal oropharynx, mucous membranes moist, TM's normal bilaterally, normal external ear exam, other (Hyperinflated and erythematous tonsils.) - Neck Neck exam: Present: normal inspection, full ROM, trachea midline. Absent: meningismus, lymphadenopathy - Chest Chest inspection: Present: normal inspection, symmetric chest wall rise. Absent: tenderness - Respiratory Respiratory exam: Present: normal lung sounds bilaterally. Absent: respiratory distress, wheezes - Cardiovascular Cardiovascular exam: Present: regular rate, normal rhythm, normal heart sounds. Absent: JVD - Abdominal Exam Abdominal exam: Present: soft, tenderness (Right lower quadrant tenderness with no rebound no rigidity no cross tenderness. ), normal bowel sounds. Absent: distention, guarding, rebound, rigidity - External exam: Present: normal external exam - Extremities Exam Extremities exam: Present: normal inspection, full ROM, normal capillary refill. Absent: calf tenderness - Back Exam Back exam: Present: normal inspection. Absent: tenderness, CVA tenderness (R), CVA tenderness (L), paraspinal tenderness, vertebral tenderness - Neurological Exam Neurological exam: Present: alert, oriented X3, CN II-XII intact, normal gait, motor sensory deficit, reflexes normal - Psychiatric Psychiatric exam: Present: normal affect, normal mood - Skin Skin exam: Present: warm, dry, intact, normal color - Lymphatic Lymphatic Findings: no adenopathy
[2018-06-25 14:29] LABS: Bacteria,Urine 4+ /lpf; Mucus,Urine 3+ /lpf; Squamous Epithelial Cell,Urine TNTC #/hpf (0-5); WBC,Urine 20-50 #/hpf (0-3)
[2018-06-25 14:31] LABS: Basophils % 0.2 % (0.1-2.0); Eosinophils # 0.1 K/mm3 (0.0-0.4); Eosinophils % 0.8 % (0.1-12.0); Hematocrit 36.4 % (37.0-47.0); Hemoglobin 12.5 g/dL (12.2-16.2); Lymphocytes # 1.6 K/mm3 (0.7-4.5); Lymphocytes % 14.9 % (10-50); Mean Corpuscular HGB Conc 34.3 g/dL (31.8-35.4); Mean Corpuscular Hemoglobin 29.9 pg (27.0-31.2); Mean Corpuscular Volume 87.4 fl (81-99); Mean Platelet Volume 7.1 fl (7.4-10.4); Monocytes # 0.4 K/mm3 (0.1-1.0); Monocytes % 3.9 % (1.7-9.3); Neutrophils # 8.7 K/mm3 (1.8-7.8); Neutrophils % 80.3 % (37.0-80.0); Platelet Count 190 K/mm3 (142-424); Red Blood Count 4.16 M/mm3 (4.20-5.40); Red Cell Distribution Width 12.6 % (11.5-17.5); White Blood Count 10.8 K/mm3 (4.8-10.8)
[2018-06-25 14:41] LABS: Albumin Level 3.4 gm/dL (3.4-5.0); Albumin/Globulin Ratio 0.8 (1.1-1.8); Anion Gap 13.3 mEq/L (5-15); Bilirubin,Total 0.4 mg/dL (0.2-1.0); Calcium 8.3 mg/dL (8.5-10.1); Globulin 4.2 gm/dl (1.3-3.2); Potassium 3.3 mmoL/L (3.5-5.1); Total Protein,Serum 7.6 gm/dL (6.4-8.2)
--- NOTE | 2018-06-25 21:27 | History & Physical Report ---
*Admission Date: 06/25/18 *Chief complaint: Nausea and vomiting *History of present illness: This 23-year-old white female developed a sore throat yesterday. She was seen in urgent treatment and was treated with IM penicillin. She states that she has had upset stomach and abdominal pain since that time. This evening she presented at [facility] emergency room for evaluation and treatment. She was seen by Dr. Salazar in the emergency room. She had tonsillar pharyngitis on exam. CT scan was ordered of the abdomen revealed cholelithiasis. She states that she has not had symptoms related to cholecystitis that she is aware of. She also had white blood cells in the urine. Dr. Salazar felt that he could not adequately control her nausea and vomiting and felt that she should be admitted for evaluation and treatment. Since admission she has had no vomiting. She states she feels better. She has not been febrile. She received IV Rocephin in the emergency room as well as anti-emetics. She received IV fluids in the emergency room. [facility] History Medical History: Reports:: Gastroesophageal Reflux Disease(GERD), Urinary Tract Infection (Some past history of urinary tract infection.) Denies:: Cancer, Diabetes Mellitus Type 1, Diabetes Mellitus Type 2, MRSA, Seizures Other Medical History: Denies: Thyroid Disease Other Surgeries: Yes: Other (BACK SURGERY (2011). Excision of axillary abscess on the left.) Amputation: No Fractures: No - *Social History Educational Level: Completed College Smoking Status: Never smoker Alcohol Intake: never Occupational Status: employed Housing: house Household Members: family, children - Psychiatric History Expresses thoughts of harming self/others: None Suicide Plan Description: No Plan *Family Hx:: Cancer, Coronary Artery Disease, Diabetes Comment: Her father had coronary artery bypass graft. He is 58 years old. He is diabetic. Her mother has had cholecystectomy for gallbladder disease. Her brother is healthy. [employer] history: Additional [employer] History (She is 1 para 1. Her child is 11 months old, a son. History of ovarian cysts) Para: 1 Review of Systems - Constitutional Denies anorexia, Denies fever(s), Denies weight loss - Eyes Denies change in vision - ENT Reports difficulty swallowing (Mild), Reports sore throat, Denies abnormal hearing - *Cardiovascular Denies chest pain - *Respiratory Denies chest congestion, Denies cough, Denies shortness of breath - *Gastrointestinal Reports abdominal pain, Reports nausea, Reports vomiting, Denies change in bowel habits, Denies coffee ground vomit, Denies loose stools, Denies heartburn, Denies heartburn, Denies loose stools, Denies black, tarry stools - *Genitourinary Comments: She denies urinary tract symptoms recently. He is a 1 para 1 her child being 11 months old. She has been on control pills and indeed got on control pills. She continues with control pills at this time. She has had a history of ovarian cysts. - *Musculoskeletal Reports back pain, Denies joint pain Comments: She has a history of scoliosis and had Chu rods placed at [facility] in 2011. - Integumentary/Breasts Denies new lesions, Denies rash - *Neurologic Denies abnormal walking, Denies abnormal movements, Denies abnormal speech, Denies behavioral changes, Denies unsteadiness, Denies dizziness, Denies lack of coordination, Denies other visual disturbances - Endocrine Denies increased urination - Hematologic/Lymphatic Denies easy bleeding - Allergic/Immunologic Comments: No known allergies. Meds Home Medications Medication Instructions Recorded Confirmed Type Omeprazole [Omeprazole 20mg Tab] 20 mg PO HS 05/21/18 06/25/18 History Ascorbate Calcium [Vitamin C] 500 mg PO HS 05/22/18 06/25/18 History Ergocalciferol (Vitamin D2) 400 unit PO HS 05/22/18 06/25/18 History [Vitamin D] L.acidoph,Paracasei, B.lactis 1 each PO HS 05/22/18 06/25/18 History [Probiotic] Loratadine [Claritin 10mg Tablet] 10 mg PO DAILY 05/22/18 06/25/18 History Norethindrone AC-Eth Estradiol 1 each PO HS 05/22/18 06/25/18 History [Junel 1 mg-20 Mcg Tablet] [place]-3 Fatty Acids [Fish Oil] 300 mg PO HS 05/22/18 06/25/18 History Norethindrone AC-Eth Estradiol 1 tab PO DAILY 06/25/18 06/25/18 History [Junel 1 mg-20 Mcg Tablet] Allergies Allergy/AdvReac Type Severity Reaction Status Date / Time No Known Allergies Allergy Verified 10/23/18 10:22 Exam Vital signs and Labs for Last 24 Hours: Temp Pulse Resp BP Pulse Ox 97.9 F 80 18 129/80 98 06/25/18 20:47 06/25/18 20:47 06/25/18 20:47 06/25/18 20:47 06/25/18 18:47 Laboratory Results - last 24 hr 06/25/18 14:12: Urine Color Yellow, Urine Appearance Cloudy, Urine pH 6.0, Ur Specific [place] >= 1.030, Urine Protein Trace, Urine Glucose (UA) Negative, Urine Ketones Negative, Urine Blood 2+, Urine Nitrate Negative, Urine Bilirubin Negative, Urine Urobilinogen 0.2, Ur Leukocyte Esterase Trace, Urine RBC 5-10, Urine WBC 20-50, Ur Squamous Epith Cells Tntc, Urine Bacteria 4+, Urine Mucus 3+ 06/25/18 14:12: Urine HCG, Qual Negative 06/25/18 14:20: WBC 10.8, RBC 4.16 L, Hgb 12.5, Hct 36.4 L, MCV 87.4, MCH 29.9, MCHC 34.3, RDW 12.6, Plt Count 190, MPV 7.1 L, Neut % (Auto) 80.3 H, Lymph % (Auto) 14.9, [place] % (Auto) 3.9, Eos % (Auto) 0.8, Baso % (Auto) 0.2, Neut # (Auto) 8.7 H, Lymph # (Auto) 1.6, [place] # (Auto) 0.4, Eos # (Auto) 0.1, Baso # (Auto) 0.0 06/25/18 14:20: Sodium 136, Potassium 3.3 L, Chloride 100, Carbon Dioxide 26, Anion Gap 13.3, BUN 8, Creatinine 0.68, Estimated Creat Clear 204, Estimated GFR 108, Est GFR ( Amer) 131, Glucose 115 H, Calcium 8.3 L, Total Bilirubin 0.4, AST 16, ALT 44, Alkaline Phosphatase 97, Total Protein 7.6, Albumin 3.4, Globulin 4.2 H, Albumin/Globulin Ratio 0.8 L, Amylase 29, Lipase 82 I & O for Last 24 hours: Intake & Output 06/23/18 06/24/18 06/25/18 06/26/18 11:59 11:59 11:59 11:59 Weight 220 lb - Constitutional no acute distress Comments: She is in no distress at the present time. She is sitting up in bed and eating ice cream. - *Routine HEENT Exam Head: Present: normocephalic Eye: Present: PERRL Comments: Her tonsils are enlarged and with exudates and areas of eschar. Her voice is clear and she is able to swallow. - *Routine Neck Exam Present: supple, lymphadenopathy - Routine Chest/Breast/Axilla Exam Axillae: Absent: lymphadenopathy, tenderness, swelling - *Routine Respiratory Exam Present: CTA bilaterally. Absent: rales, wheezes - *Routine Cardiovascular Exam Present: RRR - *Routine Abdominal Exam Present: soft, normoactive bowel sounds, tenderness Comments: Mildly tender in the right upper quadrant but also on the left side. No rigidity or rebound. Bowel sounds are present. - *Routine Extremities Exam Absent: cyanosis, edema - *Routine Skin Exam Present: warm. Absent: rash Comments: She states that she has not had a rash during her bout of pharyngitis. Assessment and Plan (1) Abdominal pain Current visit: Yes Status: Acute Category: Medical Code(s): R10.9 - Unspecified abdominal pain (2) Cholelithiasis Current visit: Yes Status: Acute Category: Medical Code(s): K80.20 - Calculus of gallbladder without cholecystitis without obstruction (3) Acute pharyngitis Current visit: Yes Status: Acute Category: Medical Code(s): J02.9 - Acute pharyngitis, unspecified (4) Intractable nausea and vomiting Current visit: Yes Status: Acute Category: Medical Code(s): R11.2 - Nausea with vomiting, unspecified (5) UTI (urinary tract infection) Current visit: Yes Status: Acute Category: Medical Code(s): N39.0 - Urinary tract infection, site not specified (6) Strep throat Current visit: No Status: Acute Category: Medical Code(s): J02.0 - Streptococcal pharyngitis - Assessment and plan all Dx Assessment and Plan for all problems:: Her symptoms seem self-limited at the present time. She has received additional IV antibiotic so I would think that her strep throat has been adequately treated. I will give her dose of steroids to take the inflammation of her throat. She is receiving adequate hydration. I hope she will be stable overnight and be ready for discharge in the morning with follow-up for her cholelithiasis. Mononucleosis will be screened for. She had mild hypokalemia and we will follow-up on this in the morning.
[2018-06-26 06:41] LABS: Basophils % 0.1 % (0.1-2.0); Hemoglobin 11.9 g/dL (12.2-16.2); Lymphocytes # 1.1 K/mm3 (0.7-4.5); Mean Corpuscular Hemoglobin 28.2 pg (27.0-31.2); Mean Corpuscular Volume 88.2 fl (81-99); Mean Platelet Volume 7.3 fl (7.4-10.4); Monocytes # 0.2 K/mm3 (0.1-1.0); Monocytes % 2.2 % (1.7-9.3); Neutrophils # 6.3 K/mm3 (1.8-7.8); Neutrophils % 83.6 % (37.0-80.0); Platelet Count 232 K/mm3 (142-424); Red Cell Distribution Width 12.6 % (11.5-17.5); White Blood Count 7.6 K/mm3 (4.8-10.8)
[2018-06-26 06:44] LABS: Anion Gap 13.5 mEq/L (5-15); Calcium 8.4 mg/dL (8.5-10.1); Potassium 4.5 mmoL/L (3.5-5.1)
--- NOTE | 2018-06-26 09:38 | Progress Note ---
Internal Medicine - PN: Subj *Date: 06/26/18 *Time: 09:35 Interval history: She continues to complain of pain and ask for pain medications. She appears, however, to rest comfortably. She states that she would like more to eat. She has had no vomiting. He is afebrile. She states that her throat feels better. Her white blood cell count is normal. Exam Vital signs and Labs for Last 24 Hours: Temp Pulse Resp BP Pulse Ox 98.3 F 88 15 119/56 L 97 06/26/18 08:00 06/26/18 08:00 06/26/18 08:00 06/26/18 08:00 06/26/18 08:00 Laboratory Results - last 24 hr 06/25/18 14:12: Urine Color Yellow, Urine Appearance Cloudy, Urine pH 6.0, Ur Specific [place] >= 1.030, Urine Protein Trace, Urine Glucose (UA) Negative, Urine Ketones Negative, Urine Blood 2+, Urine Nitrate Negative, Urine Bilirubin Negative, Urine Urobilinogen 0.2, Ur Leukocyte Esterase Trace, Urine RBC 5-10, Urine WBC 20-50, Ur Squamous Epith Cells Tntc, Urine Bacteria 4+, Urine Mucus 3+ 06/25/18 14:12: Urine HCG, Qual Negative 06/25/18 14:20: WBC 10.8, RBC 4.16 L, Hgb 12.5, Hct 36.4 L, MCV 87.4, MCH 29.9, MCHC 34.3, RDW 12.6, Plt Count 190, MPV 7.1 L, Neut % (Auto) 80.3 H, Lymph % (Auto) 14.9, [place] % (Auto) 3.9, Eos % (Auto) 0.8, Baso % (Auto) 0.2, Neut # (Auto) 8.7 H, Lymph # (Auto) 1.6, [place] # (Auto) 0.4, Eos # (Auto) 0.1, Baso # (Auto) 0.0 06/25/18 14:20: Sodium 136, Potassium 3.3 L, Chloride 100, Carbon Dioxide 26, Anion Gap 13.3, BUN 8, Creatinine 0.68, Estimated Creat Clear 204, Estimated GFR 108, Est GFR ( Amer) 131, Glucose 115 H, Calcium 8.3 L, Total Bilirubin 0.4, AST 16, ALT 44, Alkaline Phosphatase 97, Total Protein 7.6, Albumin 3.4, Globulin 4.2 H, Albumin/Globulin Ratio 0.8 L, Amylase 29, Lipase 82 06/25/18 14:20: Monoscreen Negative 06/26/18 05:50: WBC 7.6 D, RBC 4.20, Hgb 11.9 L, Hct 37.0, MCV 88.2, MCH 28.2, MCHC 32.0, RDW 12.6, Plt Count 232, MPV 7.3 L, Neut % (Auto) 83.6 H, Lymph % (Auto) 14.0, [place] % (Auto) 2.2, Eos % (Auto) 0.0 L, Baso % (Auto) 0.1, Neut # (Auto) 6.3, Lymph # (Auto) 1.1, [place] # (Auto) 0.2, Eos # (Auto) 0.0, Baso # (Auto) 0.0 06/26/18 05:50: Sodium 138, Potassium 4.5 D, Chloride 105, Carbon Dioxide 24, Anion Gap 13.5, BUN 6 L, Creatinine 0.49 L D, Estimated Creat Clear 282, Estimated GFR 158, Est GFR ( Amer) 191 D, Glucose 150 H D, Calcium 8.4 L , Magnesium 1.9 I & O for Last 24 hours: Intake & Output 06/23/18 06/24/18 06/25/18 06/26/18 11:59 11:59 11:59 11:59 Intake Total 175 / 175 Output Total 200 / 200 Balance -25 / -25 Weight 219 lb - Constitutional no acute distress - *Routine HEENT Exam Comments: The throat seems improved. The right tonsil still has a lot of exudate. There seems to be less swelling in the throat and less erythema. - *Routine Respiratory Exam Present: CTA bilaterally - *Routine Cardiovascular Exam Present: RRR - *Routine Abdominal Exam Present: soft, normoactive bowel sounds. Absent: tenderness Comments: She seems to have no significant tenderness on exam. Assessment and Plan (1) Abdominal pain Current visit: Yes Status: Acute Category: Medical Code(s): R10.9 - Unspecified abdominal pain (2) Cholelithiasis Current visit: Yes Status: Acute Category: Medical Code(s): K80.20 - Calculus of gallbladder without cholecystitis without obstruction (3) Acute pharyngitis Current visit: Yes Status: Acute Category: Medical Code(s): J02.9 - Acute pharyngitis, unspecified (4) Intractable nausea and vomiting Current visit: Yes Status: Acute Category: Medical Code(s): R11.2 - Nausea with vomiting, unspecified (5) UTI (urinary tract infection) Current visit: Yes Status: Acute Category: Medical Code(s): N39.0 - Urinary tract infection, site not specified (6) Strep throat Current visit: No Status: Acute Category: Medical Code(s): J02.0 - Streptococcal pharyngitis - Assessment and plan all Dx Assessment and Plan for all problems:: We will advance her diet as tolerated. Saline lock IV. She is encouraged to be up and about. I will probably discharge her later on today.
--- NOTE | 2018-06-26 11:32 | Pharmacy Consult Notes ---
[facility] Pharmacy VTE Monitoring - Patient Demographics Admission date: 06/25/18 Report Date: 06/26/18 Time: 11:32 Allergies/Adverse Reactions: Patient Allergies No Known Allergies Allergy (Verified 05/31/18 10:22) Height: 1.75 m Weight: 99.337 kg Patient Problems: Current Active Problems Acute pharyngitis (Acute) UTI (urinary tract infection) (Acute) Dehydration (Acute) Cholestasis (Acute) Splenomegaly (Acute) Intractable nausea and vomiting (Acute) Abdominal pain (Acute) Cholelithiasis (Acute) - VTE Risk Labs: VTE Related Lab Results Hgb 11.9 g/dL (12.2-16.2) L 06/26/18 05:50 Hct 37.0 % (37.0-47.0) 06/26/18 05:50 Plt Count 232 K/mm3 (142-424) 06/26/18 05:50 BUN 6 mg/dL (7-18) L 06/26/18 05:50 Creatinine 0.49 mg/dL (0.55-1.02) L D 06/26/18 05:50 Estimated Creat Clear 282 mL/min (50-200) 06/26/18 05:50 Was VTE Risk Assessment Performed: Yes VTE Score: 1 VTE Risk Level: Very Low Risk - Prophylaxis VTE Prophylaxis Ordered?: Yes Types of VTE Prophylaxis: TEDS Knee High Location of Applied Device: Bilateral Lower Extremeties - VTE Diagnosis Confirmed Treatment or plan recommended: Continue Current Treatment
--- NOTE | 2018-06-26 16:06 | Progress Note ---
Internal Medicine - PN: Subj *Date: 06/26/18 *Time: 16:04 Interval history: She remains clinically stable, though she still complains of abdominal pain. She last took morphine around noon. She was able to eat. She has had no vomiting. She has had no fever. Exam Vital signs and Labs for Last 24 Hours: Temp Pulse Resp BP Pulse Ox 97.7 F 89 17 113/61 98 06/26/18 15:23 06/26/18 15:23 06/26/18 15:23 06/26/18 15:23 06/26/18 15:23 Laboratory Results - last 24 hr 06/25/18 14:20: Monoscreen Negative 06/26/18 05:50: WBC 7.6 D, RBC 4.20, Hgb 11.9 L, Hct 37.0, MCV 88.2, MCH 28.2, MCHC 32.0, RDW 12.6, Plt Count 232, MPV 7.3 L, Neut % (Auto) 83.6 H, Lymph % (Auto) 14.0, [place] % (Auto) 2.2, Eos % (Auto) 0.0 L, Baso % (Auto) 0.1, Neut # (Auto) 6.3, Lymph # (Auto) 1.1, [place] # (Auto) 0.2, Eos # (Auto) 0.0, Baso # (Auto) 0.0 06/26/18 05:50: Sodium 138, Potassium 4.5 D, Chloride 105, Carbon Dioxide 24, Anion Gap 13.5, BUN 6 L, Creatinine 0.49 L D, Estimated Creat Clear 282, E stimated GFR 158, Est GFR ( Amer) 191 D, Glucose 150 H D, Calcium 8.4 L, Magnesium 1.9 I & O for Last 24 hours: Intake & Output 06/24/18 06/25/18 06/26/18 06/27/18 11:59 11:59 11:59 11:59 Intake Total 2147 / 2147 240 / 240 Output Total 200 / 200 Balance 1947 / 194 240 / 240 Weight 219 lb Microbiology Reports for the Last 24 Hours: Microbiology 06/25/18 14:12 Urine,Clean Catch Urine Culture - Preliminary NO GROWTH AFTER 24 HOURS - Constitutional no acute distress - *Routine Abdominal Exam Present: soft. Absent: tenderness, mass Assessment and Plan (1) Abdominal pain Current visit: Yes Status: Acute Category: Medical Code(s): R10.9 - Unspecified abdominal pain (2) Cholelithiasis Current visit: Yes Status: Acute Category: Medical Code(s): K80.20 - Calculus of gallbladder without cholecystitis without obstruction (3) Acute pharyngitis Current visit: Yes Status: Acute Category: Medical Code(s): J02.9 - Acute pharyngitis, unspecified (4) Intractable nausea and vomiting Current visit: Yes Status: Acute Category: Medical Code(s): R11.2 - Nausea with vomiting, unspecified (5) UTI (urinary tract infection) Current visit: Yes Status: Acute Category: Medical Code(s): N39.0 - Urinary tract infection, site not specified (6) Strep throat Current visit: No Status: Acute Category: Medical Code(s): J02.0 - Streptococcal pharyngitis - Assessment and plan all Dx Assessment and Plan for all problems:: She will be discharged on hyoscyamine 0.125 mg 4 times daily, Phenergan 25 mg p.o. 3 times daily, tramadol 50 mg p.o. 4 times daily as needed pain. She is to contact her family physician tomorrow for follow-up and arrangements for evaluation for possible cholecystectomy.
--- NOTE | 2018-06-27 15:52 | Discharge Summary ---
General - General Admission date:: 06/25/18 Discharge date: 06/26/18 HPI HPI: This 23-year-old white female developed a sore throat yesterday. She was seen in urgent treatment and was treated with IM penicillin. She states that she has had upset stomach and abdominal pain since that time. This evening she presented at [facility] emergency room for evaluation and treatment. She was seen by Dr. Salazar in the emergency room. She had tonsillar pharyngitis on exam. CT scan was ordered of the abdomen revealed cholelithiasis. She states that she has not had symptoms related to cholecystitis that she is aware of. She also had white blood cells in the urine. Dr. Salazar felt that he could not adequately control her nausea and vomiting and felt that she should be admitted for evaluation and treatment. Since admission she has had no vomiting. She states she feels better. She has not been febrile. She received IV Rocephin in the emergency room as well as anti-emetics. She received IV fluids in the emergency room. Hospital Course Hospital Course: Her symptoms seemed self-limited. She received additional IV antibiotic so Dr. Murdock felt her strep throat was adequately treated. She was given a dose of steroids to take the inflammation out of her throat. She had mild hypokalemia which resolved. Her diet was advanced. She was saline locked. She tolerated a diet and was stable to be discharged on hyoscyamine 0.125 mg 4 times daily, Phenergan 25 mg p.o. 3 times daily, and tramadol 50 mg p.o. 4 times daily as needed for pain. She will contact her family physician for follow-up and arrangements for evaluation for possible cholecystectomy. Objective Vital signs: Temp Pulse Resp BP Pulse Ox 97.7 F 89 17 113/61 98 06/26/18 15:23 06/26/18 15:23 06/26/18 15:23 06/26/18 15:23 06/26/18 15:23 Narrative: - Constitutional no acute distress Comments: She is in no distress at the present time. She is sitting up in bed and eating ice cream. - *Routine HEENT Exam Head: Present: normocephalic Eye: Present: PERRL Comments: Her tonsils are enlarged and with exudates and areas of eschar. Her voice is clear and she is able to swallow. - *Routine Neck Exam Present: supple, lymphadenopathy - Routine Chest/Breast/Axilla Exam Axillae: Absent: lymphadenopathy, tenderness, swelling - *Routine Respiratory Exam Present: CTA bilaterally. Absent: rales, wheezes - *Routine Cardiovascular Exam Present: RRR - *Routine Abdominal Exam Present: soft, normoactive bowel sounds, tenderness Comments: Mildly tender in the right upper quadrant but also on the left side. No rigidi ty or rebound. Bowel sounds are present. - *Routine Extremities Exam Absent: cyanosis, edema - *Routine Skin Exam Present: warm. Absent: rash Comments: She states that she has not had a rash during her bout of pharyngitis. DS: Diagnosis - Discharge Diagnosis (1) Abdominal pain Status: Acute (2) Cholelithiasis Status: Acute (3) Acute pharyngitis Status: Acute (4) Intractable nausea and vomiting Status: Acute (5) UTI (urinary tract infection) Status: Acute (6) Strep throat Status: Acute Discharge Plan - Patient Discharge Instructions ACTIVITY: Limited activity DIET: low fat, low cholesterol Patient Instructions: Strep Throat, DI for Gallstones, DI for Acute Abdomen - Follow up Plan Follow up with: Annamarie Garcia [Primary Care Provider] - 1 day Disposition: Home, Self-Custodial Medications: Home Medications Medication Instructions Recorded Confirmed Type Omeprazole [Omeprazole 20mg Tab] 20 mg PO HS 05/21/18 06/25/18 History Ascorbate Calcium [Vitamin C] 500 mg PO HS 05/22/18 06/25/18 History Ergocalciferol (Vitamin D2) 400 unit PO HS 05/22/18 06/25/18 History [Vitamin D] L.acidoph,Paracasei, B.lactis 1 each PO HS 05/22/18 06/25/18 History [Probiotic] Loratadine [Claritin 10mg Tablet] 10 mg PO DAILY 05/22/18 06/25/18 History [place]-3 Fatty Acids [Fish Oil] 300 mg PO HS 05/22/18 06/25/18 History Norethindrone-E.estradiol-Iron 1 tab PO HS 06/26/18 06/26/18 History [Junel Fe 1 mg-20 Mcg Tablet] Prescriptions/Medication Reconciliation: New Tramadol HCl [Ultram 50mg tablet] 50 mg PO QIDP PRN #12 tab PRN Reason: pain Promethazine HCl [Phenergan 25mg tab] 25 mg PO TID #14 tablet Hyoscyamine Sulfate [Levsin 0.125mg tablet] 0.125 mg PO QIDP PRN #60 tab.rapdis PRN Reason: ABDOMINAL PAIN Continue Omeprazole [Omeprazole 20mg Tab] 20 mg PO HS Ascorbate Calcium [Vitamin C] 500 mg PO HS Loratadine [Claritin 10mg Tablet] 10 mg PO DAILY Norethindrone-E.estradiol-Iron [Junel Fe 1 mg-20 Mcg Tablet] 1 tab PO HS Ergocalciferol (Vitamin D2) [Vitamin D] 400 unit PO HS L.acidoph,Paracasei, B.lactis [Probiotic] 1 each PO HS [place]-3 Fatty Acids [Fish Oil] 300 mg PO HS
== END 2018-06-26 16:55 | disposition home or self-care (01) ==
LOC: ER 14:05 → 2ND 14:05
PROVIDERS: ADMIT Family Medicine; ATTEND Family Medicine
CPT/HCPCS: 36415; 74177; 80048; 80053; 81001; 81025; 82150; 83690; 83735; 85025; 86318; 87086; 96365; 96366; 96367; 96375; 99283; G0378; J2405; Q9967

== ENCOUNTER 2018-07-01 08:11 | Observation (INO) ==
--- NOTE | 2018-07-01 08:30 | Emergency Department Note ---
ED Disposition Clinical Impression: Enteritis Abdominal pain Qualifiers: Abdominal location: lower abdomen, unspecified Qualified Code(s): R10.30 - Lower abdominal pain, unspecified Diarrhea Qualifiers: Diarrhea type: unspecified type Qualified Code(s): R19.7 - Diarrhea, unspecified Disposition: Still a Patient Condition on Discharge: Good - Critical Care Critical Care Time: No Attestation: On 07/01/18, the high probability of a clinically significant, sudden or life threatening deterioration of the following system(s) required my full and direct attention, intervention and personal management. The time I documented below is in addition to time spent performing reported procedures but includes the following listed in this critical care notation. Medical Decision Making - Tal Inquiry Pt receiving controlled substance: Yes Tal was queried for this patient: No Reason not queried -: Emergent pt cond-no time Risks and benefits of using a controlled substance: were not discussed with pt by me Vital Signs: 07/01/18 08:16 07/01/18 08:54 07/01/18 09:32 Temperature 97.7 F Temperature Source Oral Pulse Rate [Right Brachial] 106 H 97 H 81 Respiratory Rate 20 Blood Pressure [Right Arm] 152/77 H 148/71 H 122/70 Blood Pressure Mean [Right Arm] 102 96 87 Blood Pressure Source [Right Arm] Automatic Cuff Automatic Cuff Blood Pressure Position [Right Arm] Supine Supine 02 Sat by Pulse Oximetry 99 99 100 Oxygen Delivery Method Room Air Room Air 07/01/18 10:03 07/01/18 10:49 07/01/18 11:55 Temperature Temperature Source Pulse Rate [Right Brachial] 89 74 76 Respiratory Rate 20 Blood Pressure [Right Arm] 105/55 L 110/35 L 112/74 Blood Pressure Mean [Right Arm] 71 60 86 Blood Pressure Source [Right Arm] Automatic Cuff Automatic Cuff Automatic Cuff Blood Pressure Position [Right Arm] Supine Supine Supine 02 Sat by Pulse Oximetry 98 99 99 Oxygen Delivery Method Room Air Room Air Room Air - Lab Data Lab Results 07/01/18 08:26: WBC 11.8 H, RBC 4.67, Hgb 13.3, Hct 41.0, MCV 87.8, MCH 28.4, MCHC 32.4, RDW 13.0, Plt Count 365, MPV 7.1 L, Neut % (Auto) 61.4, Lymph % (Auto) 32.8, [place] % (Auto) 3.8, Eos % (Auto) 1.5, Baso % (Auto) 0.6, Neut # (Auto) 7.2, Lymph # (Auto) 3.9, [place] # (Auto) 0.4, Eos # (Auto) 0.2, Baso # (Auto) 0.1 07/01/18 08:26: Sodium 138, Potassium 3.6, Chloride 101, Carbon Dioxide 23, Anion Gap 17.6 H, BUN 9, Creatinine 0.70, Estimated Creat Clear 190, Estimated GFR 105, Est GFR ( Amer) 127, Glucose 108 H, Calcium 9.4, Total Bilirubin 0.3, AST 19, ALT 50, Alkaline Phosphatase 91, Total Protein 8.1, Albumin 3.7, Globulin 4.4 H, Albumin/Globulin Ratio 0.8 L, Lipase 139 07/01/18 09:09: Stl Aeromonas (PCR) Not detected, Stl C. cayetanensis PCR Not detected, Stool Rotavirus (PCR) Not detected, Stl Adenov F 40/41 PCR Not detected, Stool Astrovirus (PCR) Not detected, Stool Campylobacter PCR Not detected, Stl C.difficile Tox PCR Not detected, Stool Cryptosporidium PCR Not detected, Stl E.coli Shiga Tox PCR Not detected, Stool E coli O157 PCR Not detected, Stl Enterotoxigenic E PCR Not detected, Stool EPEC (PCR) Not detected, Stool EAEC (PCR) Not detected, Stl E. histolytica PCR Not detected, Stool Giardia Lamblia PCR Not detected, Stool Salmonella PCR Not detected, Stool Sapovirus (PCR) Not detected, Stl P. shigelloides PCR Not detected, Stl Shigella/EIEC PCR Not detected, St Y.enterocolitica PCR Not detected, Stool Vibrio (PCR) Not detected, Stl Vibrio cholerae PCR Not detected, Stl Norovirus GI/GII PCR Not detected Result diagrams: 07/01/18 08:26 07/01/18 08:26 Orders (Tests/Meds): ED MEDICATIONS Discontinued Medications Generic Name Dose Route Start Last Admin Trade Name Freq PRN Reason Stop Dose Admin Dicyclomine HCl 20 mg 07/01/18 08:41 07/01/18 08:57 Dicyclomine 20mg/2ml Vial IM 07/01/18 08:42 Not Given ONCE ONE Dicyclomine HCl 20 mg 07/01/18 08:47 07/01/18 08:55 Bentyl 10mg Capsule PO 07/01/18 08:48 20 mg ONCE ONE Administration Ketorolac Tromethamine 30 mg 07/01/18 08:41 07/01/18 08:47 Toradol 30mg/Ml Vial IV 07/01/18 08:42 30 mg ONCE ONE Administration Morphine Sulfate 4 mg 07/01/18 09:47 07/01/18 10:00 Morphine 4mg/Ml Syringe IV 07/01/18 09:48 4 mg ONCE ONE Administration Ondansetron HCl 4 mg 07/01/18 09:47 07/01/18 10:00 Zofran 4mg/2ml Vial IV 07/01/18 09:48 4 mg ONCE ONE Administration Sodium Chloride 1,000 ml 07/01/18 08:41 07/01/18 08:47 Sod Chlor 0.9% 1000ml Bag IV 07/01/18 08:42 1,000 ml BOLUS ONE Administration ORDERS Category Date Time Status Urinalysis and Microscopic Stat Lab 07/01/18 12:10 Ordered Urine , HCG Qual. Stat Lab 07/01/18 12:10 Received - Physician Consults Physician Consulted: Sound Time: 12:00 Reason -: Admission Comment/Response: Agrees to admit the patient to the hospital. We discussed the patient's clinical information, including history, exam, laboratory and radiology results and ED course. Per hospital procedure, I will write temporary bridge inpatient orders on the patient. Specific orders requested by the admitting physician: Continue IV fluids, symptomatic medications - Reevaluation(s) Time: 11:46 Reevaluation #1: States improved only slightly on medication and now pain is starting to come back. Beginning to moan again. Medical Decision Narrative: Reviewed record from prior admission. CT scan showed normal appendix. Many small gallstones and sludge. A few air-fluid levels in the small bowel. No ovarian cysts. Urine culture showed multiple organisms, suggests contamination. General Adult HPI - General Chief complaint: Abdominal Pain Stated complaint: abd pain Time Seen by Provider: 07/01/18 08:30 Mode of Arrival: Ambulatory Limitations: No Limitations Description of Symptoms (Recalled from ER Triage Doc. by RN): Pt c/o lower abd pain, describes pain as cramping in nature and diarrhea. Pt reports pain and diarrhea began this morning. Pt reports was seen earlier this week in the ER fo r similar symptoms - History of Present Illness HPI narrative: Patient complains of lower abdominal/suprapubic crampy abdominal pain and diarrhea. She was admitted to this hospital 06/25/18 through 06/26/18 for the same pain, but at that time did not have any diarrhea. She was diagnosed with a urinary tract infection. She had a CT scan of her abdomen which also showed gallstones. But according to her discharge summary, it was not felt that the symptoms are referrable to her gallbladder. She was discharged on tramadol, Phenergan, and hyoscyamine. She has not had to take much of that at all this week because symptoms improved. However, this morning the abdominal pain returned along with numerous episodes of diarrhea like water, greater than 5. Took the meds this morning without relief. No blood noted in the diarrhea. No fever. No vomiting. Also seen in the urgent treatment center on 06/24/18 for sore throat and abdominal pain, positive strep test, treated with intramuscular penicillin. - Related Data Home Medications Medication Instructions Recorded Confirmed Omeprazole [Omeprazole 20mg Tab] 20 mg PO HS 05/21/18 06/25/18 Ascorbate Calcium [Vitamin C] 500 mg PO HS 05/22/18 06/25/18 Ergocalciferol (Vitamin D2) 400 unit PO HS 05/22/18 06/25/18 [Vitamin D] L.acidoph,Paracasei, B.lactis 1 each PO HS 05/22/18 06/25/18 [Probiotic] Loratadine [Claritin 10mg Tablet] 10 mg PO DAILY 05/22/18 06/25/18 [place]-3 Fatty Acids [Fish Oil] 300 mg PO HS 05/22/18 06/25/18 Norethindrone-E.estradiol-Iron 1 tab PO HS 06/26/18 06/26/18 [Junel Fe 1 mg-20 Mcg Tablet] Previous Rx's Medication Instructions Recorded Hyoscyamine Sulfate [Levsin 0.125 mg PO QIDP PRN #60 tab.rapdis 06/26/18 0.125mg tablet] Promethazine HCl [Phenergan 25mg 25 mg PO TID #14 tablet 06/26/18 tab] Tramadol HCl [Ultram 50mg 50 mg PO QIDP PRN #12 tab 06/26/18 tablet] Allergies Allergy/AdvReac Type Severity Reaction Status Date / Time No Known Allergies Allergy Verified 05/31/18 10:[address] [facility] History I have reviewed the patient's past medical history: Yes Medical History: Reports:: Gastroesophageal Reflux Disease(GERD), Urinary Tract Infection (Some past history of urinary tract infection.) Denies:: Cancer, Diabetes Mellitus Type 1, Diabetes Mellitus Type 2, MRSA, Seizures Other Medical History: Denies: Thyroid Disease Other Surgeries: Yes: Other (BACK SURGERY (2012). Excision of axillary abscess on the left.) Amputation: No Fractures: No - Social History Smoking Status: Never smoker Alcohol Intake: never Occupational Status: employed Housing: house Household Members: family, children Family Hx:: Cancer, Coronary Artery Disease, Diabetes Comment: Her father had coronary artery bypass graft. He is 58 years old. He is diabetic. Her mother has had cholecystectomy for gallbladder disease. Her brother is healthy. EXERCISER HORSE history: Additional EXERCISER HORSE History (She is 1 para 1. Her child is 11 months old, a son. History of ovarian cysts) ROS Obtained: Yes All systems reviewed & no additional complaints - Constitutional Constitutional: Denies fever(s) - Gastrointestinal Gastrointestingal: Reports: abdominal pain, diarrhea. Denies: bright red blood in stools, nausea, vomiting - Genitourinary Female Genitourinary: Denies dysuria Physical Exam - General General appearance: alert Comment: Intermittent episodes of colicky abdominal pain, causing her to cry and moan intermittently. - Head Head exam: atraumatic, normocephalic - Eye Eye exam: Present: normal appearance, PERRL, EOMI - ENT ENT exam: Present: mucous membranes moist - Neck Neck exam: Present: normal inspection, trachea midline - Respiratory Respiratory exam: Present: normal lung sounds bilaterally - Cardiovascular Cardiovascular exam: Present: regular rate, normal rhythm, normal heart sounds - Abdominal Exam Abdominal exam: Present: soft, tenderness. Absent: distention, guarding, rebound, rigidity, tenderness at McBurney's Point Abdominal tenderness: Present: suprapubic. Absent: RUQ - Neurological Exam Neurological exam: Present: alert, oriented X3 - Psychiatric Psychiatric exam: Present: anxious - Skin Skin exam: Present: warm, dry
[2018-07-01 08:40] LABS: Basophils # 0.1 K/mm3 (0-0.2); Basophils % 0.6 % (0.1-2.0); Eosinophils # 0.2 K/mm3 (0.0-0.4); Eosinophils % 1.5 % (0.1-12.0); Hemoglobin 13.3 g/dL (12.2-16.2); Lymphocytes # 3.9 K/mm3 (0.7-4.5); Lymphocytes % 32.8 % (10-50); Mean Corpuscular HGB Conc 32.4 g/dL (31.8-35.4); Mean Corpuscular Hemoglobin 28.4 pg (27.0-31.2); Mean Corpuscular Volume 87.8 fl (81-99); Mean Platelet Volume 7.1 fl (7.4-10.4); Monocytes # 0.4 K/mm3 (0.1-1.0); Monocytes % 3.8 % (1.7-9.3); Neutrophils # 7.2 K/mm3 (1.8-7.8); Neutrophils % 61.4 % (37.0-80.0); Platelet Count 365 K/mm3 (142-424); Red Blood Count 4.67 M/mm3 (4.20-5.40); White Blood Count 11.8 K/mm3 (4.8-10.8)
[2018-07-01 08:58] LABS: Albumin Level 3.7 gm/dL (3.4-5.0); Albumin/Globulin Ratio 0.8 (1.1-1.8); Anion Gap 17.6 mEq/L (5-15); Bilirubin,Total 0.3 mg/dL (0.2-1.0); Calcium 9.4 mg/dL (8.5-10.1); Globulin 4.4 gm/dl (1.3-3.2); Potassium 3.6 mmoL/L (3.5-5.1); Total Protein,Serum 8.1 gm/dL (6.4-8.2)
[2018-07-01 12:15] LABS: Microscopic, Urine URINE MICROSCOPIC (MICROSCOPIC)
[2018-07-01 12:29] LABS: Appearance,Urine TURBID (Clear); Bilirubin,Urine Negative (Negative); Blood, Urine Negative (Negative); Color,Urine DK YELLOW (Yellow); Glucose,Urine (UA) Negative (Negative); Ketones,Urine Negative (Negative); Leukocyte Esterase,Urine Negative (Negative); PH,Urine 5.5 (5.0-8.5); Protein,Urine TRACE (Negative); Specific Gravity, Urine >= 1.030 (1.005-1.030); Urobilinogen,Urine 0.2 EU/dl (0.2)
[2018-07-01 12:31] LABS: Amorphous Sediment,Urine 1+ /lpf; Bacteria,Urine 2+ /lpf; RBC,Urine Occasional #/hpf (0-3); WBC,Urine Occasional #/hpf (0-3)
--- NOTE | 2018-07-02 09:34 | History & Physical Report ---
*Admission Date: 07/01/18 *Chief complaint: Diffuse abdominal pain *History of present illness: Patient was in the hospital recently and was released for the same abdominal pain. Patient mentioned that she followed up with her PCP in [place]; however, due to holidays they couldn't get in to see a surgeon. She is complaining of nausea, vomiting and mild diarrhea. She still has some intense right upper quadrant abdominal pain with mild diffuse abdominal pain. Last time she was in the hospital, CT scan revealed gall stones with sludge. She is not able to tolerate any solid diet. [facility] History Medical History: Reports:: Gastroesophageal Reflux Disease(GERD), Urinary Tract Infection (Some past history of urinary tract infection.) Denies:: Cancer, Diabetes Mellitus Type 1, Diabetes Mellitus Type 2, MRSA, Seizures Other Medical History: Denies: Thyroid Disease Other Surgeries: Yes: Other (BACK SURGERY (2011). Excision of axillary abscess on the left.) Amputation: No Fractures: No - *Social History Educational Level: Completed College Smoking Status: Never smoker Alcohol Intake: never Occupational Status: employed Housing: house Household Members: family, children - Psychiatric History Expresses thoughts of harming self/others: None Suicide Plan Description: No Plan *Family Hx:: Cancer, Coronary Artery Disease, Diabetes [employer] history: Additional [employer] History (She is 1 para 1. Her child is 11 months old, a son. History of ovarian cysts) Review of Systems - Constitutional Reports fatigue - Eyes Denies blurry vision - ENT Denies bleeding gums, Denies change in voice - *Cardiovascular Denies chest pain - *Respiratory Denies cough, Denies shortness of breath with activity - *Gastrointestinal Reports abdominal pain (diffuse but more intense on right upper quadrant), Reports nausea, Reports vomiting - *Genitourinary Denies abnormal periods - *Musculoskeletal Denies joint pain - Integumentary/Breasts Denies acne - Psychiatric Denies abnormal sleep pattern, Denies thoughts of hurting/killing yourself - Endocrine Denies cold intolerance - Hematologic/Lymphatic Denies easy bleeding - Allergic/Immunologic Reports GI upset with certain foods Meds Home Medications Medication Instructions Recorded Confirmed Type Omeprazole [Omeprazole 20mg Tab] 20 mg PO HS 05/21/18 06/25/18 History Ascorbate Calcium [Vitamin C] 500 mg PO HS 05/22/18 06/25/18 History Ergocalciferol (Vitamin D2) 400 unit PO HS 05/22/18 06/25/18 History [Vitamin D] L.acidoph,Paracasei, B.lactis 1 each PO HS 05/22/18 06/25/18 History [Probiotic] Loratadine [Claritin 10mg Tablet] 10 mg PO DAILY 05/22/18 06/25/18 History [place]-3 Fatty Acids [Fish Oil] 300 mg PO HS 05/22/18 06/25/18 History Norethindrone-E.estradiol-Iron 1 tab PO HS 06/26/18 06/26/18 History [Junel Fe 1 mg-20 Mcg Tablet] Allergies Allergy/AdvReac Type Severity Reaction Status Date / Time No Known Allergies Allergy Verified 05/31/18 10:22 Exam Vital signs and Labs for Last 24 Hours: Temp Pulse Resp BP Pulse Ox 97.9 F 83 18 129/77 97 07/02/18 07:57 07/02/18 07:57 07/02/18 07:57 07/02/18 07:57 07/02/18 08:00 Laboratory Results - last 24 hr 07/01/18 09:09: Stl Aeromonas (PCR) Not detected, Stl C. cayetanensis PCR Not detected, Stool Rotavirus (PCR) Not detected, Stl Adenov F 40/41 PCR Not detected, Stool Astrovirus (PCR) Not detected, Stool Campylobacter PCR Not detected, Stl C.difficile Tox PCR Not detected, Stool Cryptosporidium PCR Not detected, Stl E.coli Shiga Tox PCR Not detected, Stool E coli O157 PCR Not detected, Stl Enterotoxigenic E PCR Not detected, Stool EPEC (PCR) Not detected, Stool EAEC (PCR) Not detected, Stl E. histolytica PCR Not detected, Stool Giardia Lamblia PCR Not detected, Stool Salmonella PCR Not detected, Stool Sapovirus (PCR) Not detected, Stl P. shigelloides PCR Not detected, Stl Shigella/EIEC PCR Not detected, St Y.enterocolitica PCR Not detected, Stool Vibrio (PCR) Not detected, Stl Vibrio cholerae PCR Not detected, Stl Norovirus GI/GII PCR Not detected 07/01/18 12:10: Urine Color Dk yellow, Urine Appearance Turbid, Urine pH 5.5, Ur Specific [place] >= 1.030, Urine Protein Trace, Urine Glucose (UA) Negative, Urine Ketones Negative, Urine Blood Negative, Urine Nitrate Negative, Urine Bilirubin Negative, Urine Urobilinogen 0.2, Ur Leukocyte Esterase Negative, Urine RBC Occasional, Urine WBC Occasional, Ur Squamous Epith Cells 5-10, Amorphous Sediment 1+, Urine Bacteria 2+ 07/01/18 12:10: Urine HCG, Qual Negative I & O for Last 24 hours: Intake & Output 06/29/18 06/30/18 07/01/18 07/02/18 11:59 11:59 11:59 11:59 Intake Total 2986 / 2986 Balance 2986 / 2986 Weight 210 lb 215 lb 2.738 oz - *Routine HEENT Exam Head: Present: normocephalic Eye: Present: EOMI ENT: Present: mucous membranes moist - *Routine Neck Exam Present: supple - *Routine Respiratory Exam Present: CTA bilaterally - *Routine Cardiovascular Exam Present: RRR - *Routine Abdominal Exam Present: soft, tenderness (on RUQ and some mild tenderness diffusely; + Haskins's sign). Absent: normoactive bowel sounds - *Routine Extremities Exam Present: full ROM. Absent: edema - *Routine Skin Exam Present: intact Assessment and Plan (1) Abdominal pain Current visit: Yes Status: Acute Qualifiers: Abdominal location: lower abdomen, unspecified Qualified Code(s): R10.30 - Lower abdominal pain, unspecified Category: Medical Code(s): R10.9 - Unspecified abdominal pain (2) Cholelithiasis Current visit: No Status: Acute Category: Medical Code(s): K80.20 - Calculus of gallbladder without cholecystitis without obstruction - Assessment and plan all Dx Assessment and Plan for all problems:: Will get US of gallbladder; get an appt with surgeon on Wednesday; Advance diet in the meantime.
--- NOTE | 2018-07-02 11:45 | Pharmacy Consult Notes ---
[facility] Pharmacy VTE Monitoring - Patient Demographics Admission date: 07/01/18 Report Date: 07/02/18 Time: 11:44 Allergies/Adverse Reactions: Patient Allergies No Known Allergies Allergy (Verified 05/31/18 10:22) Height: 1.75 m Weight: 97.6 kg Patient Problems: Current Active Problems Abdominal pain (Acute) Diarrhea (Acute) Enteritis (Acute) - VTE Risk Labs: VTE Related Lab Results Hgb 13.3 g/dL (12.2-16.2) 07/01/18 08:26 Hct 41.0 % (37.0-47.0) 07/01/18 08:26 Plt Count 365 K/mm3 (142-424) 07/01/18 08:26 BUN 9 mg/dL (7-18) 07/01/18 08:26 Creatinine 0.70 mg/dL (0.55-1.02) 07/01/18 08:26 Estimated Creat Clear 190 mL/min (50-200) 07/01/18 08:26 Was VTE Risk Assessment Performed: Yes VTE Risk Level: Very Low Risk - Prophylaxis VTE Prophylaxis Ordered?: Yes Types of VTE Prophylaxis: TEDS Knee High Location of Applied Device: Bilateral Lower Extremeties
--- NOTE | 2018-07-03 10:48 | Progress Note ---
Internal Medicine - PN: Subj *Date: 07/03/18 *Time: 10:00 Interval history: Patient is tolerating soft diet. However, she is complaining of some abdominal pain still that comes and goes. Exam Vital signs and Labs for Last 24 Hours: Temp Pulse Resp BP Pulse Ox 97.9 F 75 18 126/66 97 07/03/18 07:30 07/03/18 07:30 07/03/18 07:30 07/03/18 07:30 07/03/18 07:54 I & O for Last 24 hours: Intake & Output 06/30/18 07/01/18 07/02/18 07/03/18 11:59 11:59 11:59 11:59 Intake Total 2986 / 2986 4225 / 4225 Balance 2986 / 2986 4225 / 4225 Weight 210 lb 215 lb 2.738 oz Microbiology Reports for the Last 24 Hours: Microbiology 07/01/18 12:10 Urine,Clean Catch Urine Culture - Final Multiple organisms, suggests contamination. - *Routine HEENT Exam Head: Present: normocephalic Eye: Present: EOMI ENT: Present: mucous membranes moist - *Routine Neck Exam Present: supple - *Routine Respiratory Exam Present: CTA bilaterally - *Routine Cardiovascular Exam Present: RRR - *Routine Abdominal Exam Present: soft, normoactive bowel sounds, tenderness (Right upper quadrant with positive Haskins sign) - *Routine Extremities Exam Present: full ROM - *Routine Skin Exam Present: intact - *Routine Neurological Exam Present: alert, oriented X3 Assessment and Plan (1) Abdominal pain Current visit: Yes Status: Acute Qualifiers: Abdominal location: lower abdomen, unspecified Qualified Code(s): R10.30 - Lower abdominal pain, unspecified Category: Medical Code(s): R10.9 - Unspecified abdominal pain (2) Cholelithiasis Current visit: No Status: Acute Category: Medical Code(s): K80.20 - Calculus of gallbladder without cholecystitis without obstruction - Assessment and plan all Dx Assessment and Plan for all problems:: We will get surgical consult in the morning. Will add Toradol 30 mg IV as needed for pain.
--- NOTE | 2018-07-04 09:35 | Progress Note ---
Addendum entered and electronically signed by Olena Feliciano APRN 07/04/18 09:35: Patient remains n.p.o. Surgery has been consulted Original Note: <Olena Feliciano - Last Filed: 07/04/18 09:33> Internal Medicine - PN: Subj *Date: 07/04/18 *Time: 09:33 Interval history: Continues to require pain medicine for abdominal pain. She remains nauseated most of time. Currently is n.p.o. She was able to sleep some last night. She denies chest pain and shortness of breath. Exam Vital signs and Labs for Last 24 Hours: Temp Pulse Resp BP Pulse Ox 97.5 F L 66 18 114/47 L 95 07/04/18 08:00 07/04/18 08:00 07/04/18 08:00 07/04/18 08:00 07/04/18 08:00 I & O for Last 24 hours: Intake & Output 07/01/18 07/02/18 07/03/18 07/04/18 11:59 11:59 11:59 11:59 Intake Total 2986 / 2986 4225 / 4225 4625 / 4625 Balance 2986 / 2986 4225 / 4225 4625 / 4625 Weight 210 lb 215 lb 2.738 oz Microbiology Reports for the Last 24 Hours: Microbiology 07/01/18 12:10 Urine,Clean Catch Urine Culture - Final Multiple organisms, suggests contamination. Radiology Reports for the Last 24 Hours: 07/02/2018 bladder ultrasound IMPRESSION Cholelithiasis - Constitutional no acute distress Comments: Mother at bedside appears comfortable - *Routine Respiratory Exam Present: CTA bilaterally (Very early and posteriorly) - *Routine Cardiovascular Exam Present: RRR - *Routine Abdominal Exam Present: soft, normoactive bowel sounds, tenderness Comments: Left upper quadrant - *Routine Extremities Exam Absent: edema, calf tenderness - *Routine Neurological Exam Present: alert, oriented X3 Assessment and Plan (1) Abdominal pain Current visit: Yes Status: Acute Qualifiers: Abdominal location: lower abdomen, unspecified Qualified Code(s): R10.30 - Lower abdominal pain, unspecified Category: Medical Code(s): R10.9 - Unspecified abdominal pain (2) Cholelithiasis Current visit: No Status: Acute Category: Medical Code(s): K80.20 - Calculus of gallbladder without cholecystitis without obstruction <Sound,Carmela - Last Filed: 07/04/18 10:07> Exam Vital signs and Labs for Last 24 Hours: Temp Pulse Resp BP Pulse Ox 97.5 F L 66 18 114/47 L 95 07/04/18 08:00 07/04/18 08:00 07/04/18 08:00 07/04/18 08:00 07/04/18 08:00 I & O for Last 24 hours: Intake & Output 07/01/18 07/02/18 07/03/18 07/04/18 11:59 11:59 11:59 11:59 Intake Total 2986 / 2986 4225 / 4225 4625 / 4625 Balance 2986 / 2986 4225 / 4225 4625 / 4625 Weight 210 lb 215 lb 2.738 oz Microbiology Reports for the Last 24 Hours: Microbiology 07/01/18 12:10 Urine,Clean Catch Urine Culture - Final Multiple organisms, suggests contamination. Assessment and Plan (1) Abdominal pain Current visit: Yes Status: Acute Qualifiers: Abdominal location: lower abdomen, unspecified Qualified Code(s): R10.30 - Lower abdominal pain, unspecified Category: Medical Code(s): R10.9 - Unspecified abdominal pain (2) Cholelithiasis Current visit: No Status: Acute Category: Medical Code(s): K80.20 - Calculus of gallbladder without cholecystitis without obstruction - Assessment and plan all Dx Assessment and Plan for all problems:: will see if surgery can be done inpatient, if not will make an appt with Dr. Tavarez for outpatient f/u.
--- NOTE | 2018-07-04 12:26 | Consult Report ---
*Admission Date: 07/01/18 *Chief complaint: Gallstones *History of present illness: Patient is a 23-year-old white female from [place]. She had recently had some pharyngitis and was given intramuscular antibiotic. She had developed some nausea and vomiting and presented to the emergency department here at [facility] on 06/25/18 and was seen and evaluated by Dr. Khan. At that time she had a CT scan of the abdomen pelvis performed which revealed what was felt to be possibly incidental gallstones. She was able to be discharged home shortly thereafter and actually scheduled to see Dr. Flores as an outpatient for evaluation of the gallbladder. She had recurrent symptoms which she describes as pain in the suprapubic and left lower quadrant area. She has had some nausea occurring postprandially. She initially had multiple episodes of diarrhea. She was admitted on 07/02/18. She underwent ultrasound which reveals gallstones. She is continued to have pain and nausea. Surgical consultation was obtained. Review of Systems - Review of Systems Review of systems:: pertinent systems reviewed and negative unless documented below - Constitutional Denies anorexia - Eyes Denies change in vision - ENT Denies abnormal hearing - *Cardiovascular Denies chest pain - *Respiratory Denies shortness of breath - *Gastrointestinal Reports abdominal pain - *Genitourinary Denies abnormal periods [facility] History Medical History: Reports:: Gastroesophageal Reflux Disease(GERD), Urinary Tract Infection (Some past history of urinary tract infection.) Denies:: Cancer, Diabetes Mellitus Type 1, Diabetes Mellitus Type 2, MRSA, Seizures Other Medical History: Denies: Thyroid Disease Other Surgeries: Yes: Other (BACK SURGERY (2011). Excision of axillary abscess on the left.) Amputation: No Fractures: No - *Social History Educational Level: Completed College Smoking Status: Never smoker Alcohol Intake: never Occupational Status: employed Housing: house Household Members: family, children - Psychiatric History Expresses thoughts of harming self/others: None Suicide Plan Description: No Plan *Family Hx:: Cancer, Coronary Artery Disease, Diabetes [employer] history: Additional [employer] History (She is 1 para 1. Her child is 11 months old, a son. History of ovarian cysts) Meds Home Medications Medication Instructions Recorded Confirmed Type Omeprazole [Omeprazole 20mg Tab] 20 mg PO HS 05/21/18 07/02/18 History Ascorbate Calcium [Vitamin C] 500 mg PO HS 05/22/18 07/02/18 History Ergocalciferol (Vitamin D2) 400 unit PO HS 05/22/18 07/02/18 History [Vitamin D] L.acidoph,Paracasei, B.lactis 1 each PO HS 05/22/18 07/02/18 History [Probiotic] Loratadine [Claritin 10mg Tablet] 10 mg PO DAILY 05/22/18 07/02/18 History [place]-3 Fatty Acids [Fish Oil] 300 mg PO HS 05/22/18 07/02/18 History Norethindrone-E.estradiol-Iron 1 tab PO HS 06/26/18 07/02/18 History [Junel Fe 1 mg-20 Mcg Tablet] Promethazine HCl [Phenergan 25mg 25 mg PO TID PRN 07/03/18 07/03/18 History tab] Allergies Allergy/AdvReac Type Severity Reaction Status Date / Time No Known Allergies Allergy Verified 05/31/18 10:22 Exam Vital signs and Labs for Last 24 Hours: Temp Pulse Resp BP Pulse Ox 97.5 F L 66 18 114/47 L 95 07/04/18 08:00 07/04/18 08:00 07/04/18 08:00 07/04/18 08:00 07/04/18 08:00 I & O for Last 24 hours: Intake & Output 07/02/18 07/03/18 07/04/18 07/05/18 11:59 11:59 11:59 11:59 Intake Total 2986 / 2986 4225 / 4225 4625 / 4625 Balance 2986 / 2986 4225 / 4225 4625 / 4625 Weight 215 lb 2.738 oz - *Routine HEENT Exam Head: Present: normocephalic Eye: Present: EOMI, PERRL ENT: Present: mucous membranes moist - *Routine Neck Exam Present: supple. Absent: lymphadenopathy - *Routine Respiratory Exam Present: CTA bilaterally - *Routine Cardiovascular Exam Present: RRR - *Routine Abdominal Exam Present: soft, normoactive bowel sounds, tenderness Comments: Her abdomen is soft. She has some tenderness in the back and left lower quadrant areas. No upper abdominal tenderness. No evidence of any Haskins sign. - *Routine Extremities Exam Absent: cyanosis, clubbing, edema - *Routine Skin Exam Present: warm. Absent: rash - *Routine Neurological Exam Present: alert, oriented X3 - Detailed Eye Exam Eyelids: Left normal inspection Results - Labs 07/01/18 08:26 07/01/18 08:26 Assessment and Plan (1) Abdominal pain Current visit: Yes Status: Acute Qualifiers: Abdominal location: lower abdomen, unspecified Qualified Code(s): R10.30 - Lower abdominal pain, unspecified Category: Medical Code(s): R10.9 - Unspecified abdominal pain (2) Cholelithiasis Current visit: No Status: Acute Category: Medical Code(s): K80.20 - Calculus of gallbladder without cholecystitis without obstruction - Assessment and plan all Dx Assessment and Plan for all problems:: Patient does have gallstones without sonographic evidence of acute cholecystitis. Her current symptoms and findings on physical examination are not concordant with biliary etiology. Her pain seems to be more in the lower abdomen, suprapubic location, and left lower quadrant. I did explain to her that it is possible that she has an atypical presentation of symptomatic gallstones. I will review her prior CT scan from a week and a half ago. Next step may be to repeat CT scan with oral contrast as this may be an enterocolitis.
--- NOTE | 2018-07-04 22:46 | Discharge Summary ---
General - General Admission date:: 07/01/18 Discharge date: 07/04/18 HPI HPI: Patient was in the hospital recently and was released for the same abdominal pain. Patient mentioned that she followed up with her PCP in [place]; however, due to holidays they couldn't get in to see a surgeon. She is complaining of nausea, vomiting and mild diarrhea. She still has some intense right upper quadrant abdominal pain with mild diffuse abdominal pain. Last time she was in the hospital, CT scan revealed gall stones with sludge. She is not able to tolerate any solid diet. Hospital Course Hospital Course: An U/S of the GB was ordered. It showed cholelithiasis. Toradol was added for pain. Surgery was consulted. Dr. Valenzuela wanted to repeat the CT scan with oral contrast and it also showed cholelithiasis. She was able to tolerate a diet. She was stable to be discharged home on zofran and will f/u with Dr. Tavarez in 2 days. Objective Vital signs: Temp Pulse Resp BP Pulse Ox 98.3 F 67 18 130/67 99 07/04/18 16:00 07/04/18 16:00 07/04/18 16:00 07/04/18 16:00 07/04/18 16:00 Narrative: - *Routine HEENT Exam Head: Present: normocephalic Eye: Present: EOMI ENT: Present: mucous membranes moist - *Routine Neck Exam Present: supple - *Routine Respiratory Exam Present: CTA bilaterally - *Routine Cardiovascular Exam Present: RRR - *Routine Abdominal Exam Present: soft, tenderness (on RUQ and some mild tenderness diffusely; + Haskins's sign). Absent: normoactive bowel sounds - *Routine Extremities Exam Present: full ROM. Absent: edema - *Routine Skin Exam Present: intact DS: Diagnosis - Discharge Diagnosis (1) Abdominal pain Status: Acute (2) Cholelithiasis Status: Acute Discharge Plan - Patient Discharge Instructions ACTIVITY: Continue current activity DIET: continue same diet Patient Instructions: Gallstones (Alternative Therapy) - Follow up Plan Follow up with: Bautista Tavarez MD [Staff Physician] - 2 days Unknown provider or service follow up:: 07/04/18 11:38 With her PCP in [place] in 2-3 days as well Disposition: Home, [facility] Medications: Home Medications Medication Instructions Recorded Confirmed Type Omeprazole [Omeprazole 20mg Tab] 20 mg PO HS 05/21/18 07/02/18 History Ascorbate Calcium [Vitamin C] 500 mg PO HS 05/22/18 07/02/18 History Ergocalciferol (Vitamin D2) 400 unit PO HS 05/22/18 07/02/18 History [Vitamin D] L.acidoph,Paracasei, B.lactis 1 each PO HS 05/22/18 07/02/18 History [Probiotic] Loratadine [Claritin 10mg Tablet] 10 mg PO DAILY 05/22/18 07/02/18 History [place]-3 Fatty Acids [Fish Oil] 300 mg PO HS 05/22/18 07/02/18 History Norethindrone-E.estradiol-Iron 1 tab PO HS 06/26/18 07/02/18 History [Junel Fe 1 mg-20 Mcg Tablet] Promethazine HCl [Phenergan 25mg 25 mg PO TID PRN 07/03/18 07/03/18 History tab] Prescriptions/Medication Reconciliation: New Ondansetron HCl [Zofran 4mg Tab] 4 mg PO BID #30 tab Continue Omeprazole [Omeprazole 20mg Tab] 20 mg PO HS Ascorbate Calcium [Vitamin C] 500 mg PO HS Loratadine [Claritin 10mg Tablet] 10 mg PO DAILY Norethindrone-E.estradiol-Iron [Junel Fe 1 mg-20 Mcg Tablet] 1 tab PO HS Tramadol HCl [Ultram 50mg tablet] 50 mg PO QIDP PRN #12 tab PRN Reason: pain Promethazine HCl [Phenergan 25mg tab] 25 mg PO TID PRN PRN Reason: Nausea And Vomiting Ergocalciferol (Vitamin D2) [Vitamin D] 400 unit PO HS L.acidoph,Paracasei, B.lactis [Probiotic] 1 each PO HS [place]-3 Fatty Acids [Fish Oil] 300 mg PO HS Hyoscyamine Sulfate [Levsin 0.125mg tablet] 0.125 mg PO QIDP PRN #60 tab.rapdis PRN Reason: ABDOMINAL PAIN
== END 2018-07-04 18:22 | disposition home or self-care (01) ==
LOC: 2ND 08:11 → ER 08:11 → 2ND 13:20
PROVIDERS: ADMIT Emergency Medicine; ATTEND Emergency Medicine
CPT/HCPCS: 74177; 76705; 80053; 81001; 81025; 83690; 85025; 87086; 87507; 96365; 96375; 99284; G0378; J2405; Q9967

== ENCOUNTER → 2018-08-18 16:42 | Outpatient (CLI) | payer BC, SELFPAY ==
[2018-08-18 17:05] LABS: Urine Pregnancy, HCG Qual. Negative (Negative)
[2018-08-18 17:12] LABS: Basophils % 0.3 % (0.1-2.0); Eosinophils # 0.2 K/mm3 (0.0-0.4); Eosinophils % 1.7 % (0.1-12.0); Hematocrit 39.3 % (37.0-47.0); Hemoglobin 12.5 g/dL (12.2-16.2); Lymphocytes # 4.4 K/mm3 (0.7-4.5); Lymphocytes % 42.4 % (10-50); Mean Corpuscular HGB Conc 31.9 g/dL (31.8-35.4); Mean Corpuscular Hemoglobin 27.8 pg (27.0-31.2); Mean Corpuscular Volume 87.2 fl (81-99); Mean Platelet Volume 7.3 fl (7.4-10.4); Monocytes # 0.4 K/mm3 (0.1-1.0); Monocytes % 3.9 % (1.7-9.3); Neutrophils # 5.4 K/mm3 (1.8-7.8); Neutrophils % 51.8 % (37.0-80.0); Platelet Count 351 K/mm3 (142-424); Red Cell Distribution Width 12.4 % (11.5-17.5); White Blood Count 10.4 K/mm3 (4.8-10.8)
[2018-08-18 17:35] LABS: Alanine Aminotransferase 41 U/L (12-78); Albumin Level 3.7 gm/dL (3.4-5.0); Alkaline Phosphatase 102 U/L (46-116); Anion Gap 13.6 mEq/L (5-15); Aspartate Amino Transferase 19 U/L (15-37); Bilirubin,Total 0.2 mg/dL (0.2-1.0); Blood Urea Nitrogen 8 mg/dL (7-18); Calcium 8.8 mg/dL (8.5-10.1); Carbon Dioxide 27 mmol/L (21.0-32.0); Chloride 101 mmol/L (98-107); Creatinine,Serum 0.64 mg/dL (0.55-1.02); Estimated Glomerular Filt Rate 116 ml/min (>60); GFR (African American) 140 ML/MIN (>60); Globulin 3.8 gm/dl (1.3-3.2); Glucose 86 mg/dL (74-106); Potassium 3.6 mmoL/L (3.5-5.1); Sodium 138 mmol/L (136-145); Total Protein,Serum 7.5 gm/dL (6.4-8.2)
== END ==
PROVIDERS: Visit Provider Surgery
DX: K80.10 Calculus of gallbladder with chronic cholecystitis without obstruction (principal)
CPT/HCPCS: 36415; 80053; 81025; 85025

== ENCOUNTER 2020-10-09 17:28 | Emergency (ER) | payer BC, SELFPAY ==
[2020-10-09 17:49] VITALS: BP 149/93; PULSE 83; RESP 14; TEMP 36.4; O2SAT 99
--- NOTE | 2020-10-09 18:00 | HMH.EDUTC ---
[facility] [place] Clinical Impression: Exposure to COVID-19 virus Sinusitis Qualifiers: Sinusitis location: unspecified location Chronicity: acute Recurrence: non-recurrent Qualified Code(s): J01.90 - Acute sinusitis, unspecified Disposition: Home, Self-Care Condition on Discharge: Good Instructions: Sinusitis, DI for Sinusitis, Preventing the Spread of Coronavirus Discharge Instructions Additional Instructions: Drink plenty of fluids. Take tylenol for pain or fever. Return if you begin to have difficulty breathing. Follow up with your regular doctor. GO TO THE ER FOR ANY WORSENING SYMPTOMS Prescriptions: Brompheniramine/Pseudoephed/Dm [Bromfed Dm Cough Syrup] 5 ml PO Q6HP PRN #240 syrup PRN Reason: Cough Transmission Status: Received by [facility] #[id number] predniSONE [Deltasone 10mg tablet] 10 mg PO BID 3 Days #6 tab Transmission Status: Received by [facility] #[id number] Azithromycin [Z-Ludin 250mg Tab*] 250 mg PO UD DOSE PK #6 tab Transmission Status: Received by [facility] #[id number] Referrals: Annamarie Garcia [Primary Care Provider] - Forms: Work/School Release Time of Disposition: 18:15 Medical Decision Making - Medical Records Medical records reviewed: No: I reviewed the patient's medical records. - Tal Inquiry Pt receiving controlled substance: No Vital Signs: 10/09/20 17:49 10/09/20 18:14 Temperature 97.6 F 98 F Temperature Source Tympanic Pulse Rate 80 Pulse Rate [Right] 83 Respiratory Rate 14 15 Blood Pressure 141/84 H Blood Pressure [Right Arm] 149/93 H Blood Pressure Mean [Right Arm] 111 Blood Pressure Source [Right Arm] Automatic Cuff Blood Pressure Position [Right Arm] Sitting 02 Sat by Pulse Oximetry 99 Oxygen Delivery Method Room Air - Lab Data Lab Results 10/09/20 17:58: Influenza Type A Ag Negative, Influenza Type B Ag Negative [facility] [place] - General Stated complaint: sinus infection Time Seen by Provider: 10/09/20 18:00 Mode of Arrival: Ambulatory Source of Information: Patient Limitations: No Limitations Description of Symptoms (Recalled from Triage Doc. by RN): pt has a dry cough and states it feels like a sinus infection. she also lost her sense of taste today. HEENT Symptoms (Recalled from RN notes): Yes (loss of taste) Resp Symptoms (Recalled from RN notes): Yes (nonproductive cough) Skin Symptoms (Recalled from RN notes): No MS Symptoms (Recalled from RN notes): No Functional Status (Recalled from RN notes): na - History of Present Illness Provider Complaint: She c/o sinus pressure, nasal drainage, sore throat, malaise and head ache since yesterday. Today, she states that she has had decreased sense of taste and smell. She denies any known exposure to covid-19. - Related Data Home Medications Medication Instructions Recorded Confirmed Omeprazole [Omeprazole 20mg Tab] 20 mg PO HS 05/21/18 08/30/18 Ascorbate Calcium [Vitamin C] 500 mg PO HS 05/22/18 08/30/18 Ergocalciferol (Vitamin D2) 400 unit PO HS 05/22/18 08/30/18 [Vitamin D] L.acidoph,Paracasei, B.lactis 1 each PO HS 05/22/18 08/30/18 [Probiotic] [place]-3 Fatty Acids [Fish Oil] 300 mg PO HS 05/22/18 08/30/18 norethindrone-e.estradioL-iron 1 tab PO HS 06/26/18 08/30/18 [Junel Fe 1 mg-20 Mcg Tablet] Previous Rx's Medication Instructions Recorded Azithromycin [Z-Ludin 250mg Tab*] 250 mg PO UD DOSE PK #6 tab 10/09/20 Brompheniramine/Pseudoephed/Dm 5 ml PO Q6HP PRN #240 syrup 10/09/20 [Bromfed Dm Cough Syrup] predniSONE [Deltasone 10mg tablet] 10 mg PO BID 3 Days #6 tab 10/09/20 Allergies Allergy/AdvReac Type Severity Reaction Status Date / Time No Known Allergies Allergy Verified 10/09/20 17:39 - Worker's Comp Is this a Worker's Comp case?: No [facility] History - Hepatitis A Screen Drug use history?: No High risk sexual behaviors?: No History of sexually transmitted infection?: No 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
[2020-10-09 18:08] LABS: UTC Influenza A Antigen Negative (Negative); UTC Influenza B Antigen Negative (Negative)
[2020-10-09 18:14] VITALS: BP 141/84; PULSE 80; RESP 15; TEMP 36.6
--- NOTE | 2020-10-10 08:49 | PC.NURSE ---
patient notified of positive covid test
== END 2020-10-09 18:25 | disposition home or self-care (01) ==
PROVIDERS: Emergency Provider Nurse Practitioner Family; PCP Physician Assistant
DX: U07.1 COVID-19 (principal); J01.90 Acute sinusitis, unspecified; K21.9 Gastro-esophageal reflux disease without esophagitis; Z79.899 Other long term (current) drug therapy
CPT/HCPCS: 87804; 99202; G0463; U0003

== ENCOUNTER 2021-02-16 20:07 | Emergency (ER) | payer BC, SELFPAY ==
[2021-02-16] VITALS (9 sets, daily range): BP systolic 133–164; BP diastolic 83–93; PULSE 74–90; RESP 16; TEMP 37.1; O2SAT 97–100; BMI 31.3
[2021-02-16 20:17] LABS: Microscopic, Urine URINE MICROSCOPIC (MICROSCOPIC)
[2021-02-16 20:19] LABS: Appearance,Urine CLOUDY (Clear); Bilirubin,Urine Negative (Negative); Blood, Urine 3+ (Negative); Color,Urine DK YELLOW (Yellow); Glucose,Urine (UA) Negative (Negative); Ketones,Urine Negative (Negative); Leukocyte Esterase,Urine Negative (Negative); Nitrate,Urine Negative (Negative); PH,Urine 5.5 (5.0-8.5); Protein,Urine TRACE (Negative); Specific Gravity, Urine >= 1.030 (1.005-1.030)
[2021-02-16 20:21] LABS: Urine Pregnancy, HCG Qual. Negative (Negative)
[2021-02-16 20:28] LABS: Bacteria,Urine 2+ /lpf; Mucus,Urine 3+ /lpf; RBC,Urine 50-100 #/hpf (0-3)
--- NOTE | 2021-02-16 21:17 | CT_ITS ---
PROCEDURE INFORMATION: Exam: CT Abdomen And Pelvis With Contrast Exam date and time: 02/16/2021 9:17 PM Age: 25 years old Clinical indication: Nausea and vomiting; Abdominal pain; Localized; Prior surgery; Surgery date: 6+ months; Surgery type: Scoliosis; Patient HX: Lower abd pain TECHNIQUE: Imaging protocol: Computed tomography of the abdomen and pelvis with contrast. Radiation optimization: All CT scans at this facility use at least one of these dose optimization techniques: automated exposure control; mA and/or kV adjustment per patient size (includes targeted exams where dose is matched to clinical indication); or iterative reconstruction. Contrast material: ISOVUE; Contrast volume: 75 ml; Contrast route: IV; COMPARISON: ABDPELW CT abdomen pelvis w con 07/04/2018 4:07 PM FINDINGS: Liver: Normal. Gallbladder and bile ducts: Gallbladder surgically absent. Pancreas: Normal. Spleen: Normal. Adrenal glands: Normal. No mass. Kidneys and ureters: Normal. 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 Appendix: Appendix normal. Intraperitoneal space: Unremarkable. No free air. No significant fluid collection. Vasculature: Unremarkable. No abdominal aortic aneurysm. Lymph nodes: Unremarkable. No enlarged lymph nodes. Urinary bladder: Unremarkable as visualized. Reproductive: Unremarkable as visualized. Bones/joints: Levoscoliosis of the thoracolumbar spine, with Chu rods in place. Soft tissues: Normal. IMPRESSION: No acute abdominal or pelvic abnormality.
--- NOTE | 2021-02-16 21:18 | ECG_ITS ---
APPROVED REPORT Exam: Resting ECG HR:75 bpm ECG Measurements Heart Rate 75 AXES OH 196 P 56 QRSd 92 QRS 43 QT 422 T 54 QTc 471 Conclusion Normal sinus rhythm Normal ECG Electronically signed by : Chase Daley, 02/19/2021 21:44:00
[2021-02-16 21:40] LABS: Amylase 58 U/L (30-110); Lipase 94 U/L (23-300)
[2021-02-16 21:46] LABS: C-Reactive Protein 4.8 mg/L (0-4)
[2021-02-16 21:57] LABS: Troponin I < 0.01 ng/ml (0.00-0.034)
[2021-02-16 21:59] LABS: Erythrocyte Sedimentation Rate 18 mm/hr (0-20)
[2021-02-16 22:00] LABS: Procalcitonin 0.033 ng/mL (0.0-2.0)
--- NOTE | 2021-02-16 22:34 | HMH.EDNVD ---
ED Disposition Clinical Impression: Gastroenteritis Disposition: Home, Self-Care Condition on Discharge: Good Instructions: DI for Acute Abdominal Pain Additional Instructions: call pcp in am and bring diarrhea sample from home Referrals: Annamarie Garcia [Primary Care Provider] - - Critical Care Critical Care Time: No Attestation: On 02/16/21, the high probability of a clinically significant, sudden or life threatening deterioration of the following system(s) required my full and direct attention, intervention and personal management. The time I documented below is in addition to time spent performing reported procedures but includes the following listed in this critical care notation. Medical Decision Making - Medical Records Medical records reviewed: Yes: I reviewed the patient's medical records. - Tal Inquiry Pt receiving controlled substance: No Vital Signs: 02/16/21 20:08 Temperature 98.7 F Temperature Source Oral Pulse Rate [Right] 90 Respiratory Rate 16 Blood Pressure [Right Arm] 140/92 H Blood Pressure Mean [Right Arm] 108 02 Sat by Pulse Oximetry 100 - Lab Data Lab results reviewed: Yes: I reviewed the patient's lab results. Lab Results 02/16/21 20:13: Urine HCG, Qual Negative 02/16/21 20:13: Urine Color Dk yellow, Urine Appearance Cloudy, Urine pH 5.5, Ur Specific [place] >= 1.030, Urine Protein Trace, Urine Glucose (UA) Negative, Urine Ketones Negative, Urine Blood 3+, Urine Nitrate Negative, Urine Bilirubin Negative, Urine Urobilinogen 1.0, Ur Leukocyte Esterase Negative, Urine RBC 50-100, Urine WBC 3-5, Ur Squamous Epith Cells 3-5, Urine Bacteria 2+, Urine Mucus 3+ 02/16/21 20:40: ESR 18 02/16/21 20:40: Troponin I < 0.01, C-Reactive Protein 4.8 H, Amylase 58, Lipase 94, Procalcitonin 0.033 02/16/21 20:40: WBC 10.9 H, RBC 4.53, Hgb 13.1, Hct 38.6, MCV 85.2, MCH 29.0, MCHC 34.0, RDW 12.6, Plt Count 295, MPV 7.9, Neut % (Auto) 48.2, Lymph % (Auto) 44.3, [place] % (Auto) 5.3, Eos % (Auto) 1.6, Baso % (Auto) 0.6, Neut # (Auto) 5.3, Lymph # (Auto) 4.9 H, [place] # (Auto) 0.6, Eos # (Auto) 0.2, Baso # (Auto) 0.1 02/16/21 20:40: Sodium 141, Potassium 3.9, Chloride 101, Carbon Dioxide 29, Anion Gap 14.9, BUN 9, Creatinine 0.70, Estimated Creat Clear 188, Estimated GFR 103, Est GFR ( Amer) 124, Glucose 108 H, Calcium 9.2, Total Bilirubin 0.5, AST 41 H, ALT 48, Alkaline Phosphatase 75, Total Protein 7.4, Albumin 4.5, Globulin 2.9, Albumin/Globulin Ratio 1.6 Result diagrams: 02/16/21 20:40 02/16/21 20:40 Orders (Tests/Meds): ED MEDICATIONS Generic Name Dose Route Start Last Admin Trade Name Freq PRN Reason Stop Dose Admin Sodium Chloride 1,000 mls @ 999 mls/hr 02/16/21 21:30 02/16/21 21:25 Sod Chlor 0.9% 1000ml Bag IV 02/16/21 22:30 999 mls/hr .Q1H1M TONY Administration Sodium Chloride 8 ml 02/16/21 21:20 Sodium Chloride 0.9% 10ml Vial IV 03/18/21 21:19 NEEDED PRN dilute pepcid Discontinued Medications Generic Name Dose Route Start Last Admin Trade Name Freq PRN Reason Stop Dose Admin Famotidine 20 mg 02/16/21 21:20 02/16/21 21:25 Famotidine 20mg/2ml Vial IV 02/16/21 21:21 20 mg ONCE ONE Administration Iopamidol 75 ml 02/16/21 21:53 02/16/21 21:54 Iopamidol-370 (76%);100ml Bottle IV 02/16/21 21:54 75 ml ONCE ONE Administration Ketorolac Tromethamine 30 mg 02/16/21 21:20 02/16/21 21:25 Ketorolac 30mg/Ml Vial IV 02/16/21 21:21 30 mg ONCE ONE Administration Metoclopramide HCl 10 mg 02/16/21 21:20 02/16/21 21:25 Metoclopramide Hcl 10mg/2ml Vial IVP 02/16/21 21:21 10 mg ONCE ONE Administration Sodium Chloride 10 ml 02/16/21 21:53 02/16/21 21:54 Sodium Chloride 0.9% 10ml Syr (Rad Only) IV 02/16/21 21:54 10 ml ONCE ONE Administration ORDERS Category Date Time Status Diarrhea 23 Panel, PCR Stat Lab 02/16/21 22:52 Ordered Troponin I Q3H Lab 02/17/21 00:30 Ordered Troponin I Q3H Lab
[2021-02-16 22:43] LABS: Basophils # 0.1 K/mm3 (0-0.2); Basophils % 0.6 % (0.1-2.0); Eosinophils # 0.2 K/mm3 (0.0-0.4); Eosinophils % 1.6 % (0.1-12.0); Hematocrit 38.6 % (37.0-47.0); Hemoglobin 13.1 g/dL (12.2-16.2); Lymphocytes # 4.9 K/mm3 (0.7-4.5); Lymphocytes % 44.3 % (10-50); Mean Corpuscular Volume 85.2 fl (81-99); Mean Platelet Volume 7.9 fl (7.4-10.4); Monocytes # 0.6 K/mm3 (0.1-1.0); Monocytes % 5.3 % (1.7-9.3); Neutrophils # 5.3 K/mm3 (1.8-7.8); Neutrophils % 48.2 % (37.0-80.0); Platelet Count 295 K/mm3 (142-424); Red Blood Count 4.53 M/mm3 (4.20-5.40); Red Cell Distribution Width 12.6 % (11.5-17.5); White Blood Count 10.9 K/mm3 (4.8-10.8)
[2021-02-16 23:05] LABS: Alanine Aminotransferase 48 U/L (12-78); Albumin Level 4.5 g/dl (3.5-5.0); Albumin/Globulin Ratio 1.6 (1.1-1.8); Alkaline Phosphatase 75 U/L (38-126); Anion Gap 14.9 mEq/L (5-15); Aspartate Amino Transferase 41 U/L (14-36); Bilirubin,Total 0.5 mg/dl (0.2-1.3); Blood Urea Nitrogen 9 mg/dl (7-17); Calcium 9.2 mg/dl (8.4-10.2); Carbon Dioxide 29 mmol/L (22.0-30.0); Chloride 101 mmol/L (98-107); Creatinine Clearance Estimated 188 mL/min (50-200); Estimated Glomerular Filt Rate 103 ml/min (>60); GFR (African American) 124 ML/MIN (>60); Globulin 2.9 g/dL (1.3-3.2); Glucose 108 mg/dl (74-100); Potassium 3.9 mmoL/L (3.5-5.1); Sodium 141 mmol/L (136-145); Total Protein,Serum 7.4 g/dl (6.3-8.2)
== END 2021-02-17 00:04 | disposition home or self-care (01) ==
PROVIDERS: Emergency Provider Emergency Medicine; PCP Physician Assistant
DX: K52.9 Noninfective gastroenteritis and colitis, unspecified (principal); K21.9 Gastro-esophageal reflux disease without esophagitis
CPT/HCPCS: 74177; 80053; 81001; 81025; 82150; 83690; 84145; 84484; 85025; 85651; 86140; 87086; 93005; 96365; 96375; 99283; Q9967

== ENCOUNTER 2021-05-16 18:35 | Emergency (ER) | payer BC, SELFPAY ==
[2021-05-16 18:40] VITALS: BP 131/94; PULSE 84; RESP 20; TEMP 36.9; O2SAT 100; BMI 31.3
[2021-05-16 18:57] VITALS: BP 131/94; PULSE 84; RESP 20; TEMP 36.9; O2SAT 100
[2021-05-16 18:57] LABS: Apearance,Urine Cloudy (Clear); Color,Urine Dark Yellow (Yellow)
[2021-05-16 18:58] LABS: Bilirubin,Urine Negative (Negative); Blood, Urine Trace (Negative); Glucose,Urine (UA) Negative (Negative); Ketones,Urine Negative (Negative); Protein,Urine Trace (Negative); UTC Leukocyte Esterase,Urine 1+ (Negative); UTC Nitrate,Urine Negative (Negative); Urobilinogen,Urine 4 EU/dl (0.2)
--- NOTE | 2021-05-16 19:30 | HMH.EDUTC ---
[facility] [place] Clinical Impression: UTI (urinary tract infection) Qualifiers: Urinary tract infection type: site unspecified Hematuria presence: with hematuria Qualified Code(s): N39.0 - Urinary tract infection, site not specified Disposition: Home, Self-Care Condition on Discharge: Good Instructions: Urinary Tract Infection, DI for Urinary Tract Infection (UTI) Additional Instructions: Drink plenty of fluids. Take tylenol or ibuprofen for pain or fever. Take the medications as directed. Follow up with your regular doctor. GO TO THE ER FOR ANY WORSENING SYMPTOMS The pyridium will make your urine turn orange, this is an expected side effect. It will stain your clothes if it comes into contact with them. Prescriptions: cephALEXin [cephALEXin 500mg capsule] 500 mg PO Q6H 7 Days #28 cap Transmission Status: Received by [facility] #[id number] Referrals: Provider,Referral, [Primary Care Provider] - Time of Disposition: 19:58 Medical Decision Making - Medical Records Medical records reviewed: No: I reviewed the patient's medical records. - Tal Inquiry Pt receiving controlled substance: No Vital Signs: 05/16/21 18:40 05/16/21 18:57 Temperature 98.4 F 98.4 F Temperature Source Oral Pulse Rate 84 Pulse Rate [Right Brachial] 84 Respiratory Rate 20 20 Blood Pressure 131/94 H Blood Pressure [Right Arm] 131/94 H Blood Pressure Mean [Right Arm] 106 Blood Pressure Source [Right Arm] Automatic Cuff Blood Pressure Position [Right Arm] Sitting 02 Sat by Pulse Oximetry 100 Oxygen Delivery Method Room Air - Lab Data Lab results reviewed: Yes: I reviewed the patient's lab results. Lab Results 05/16/21 18:53: Urine Color Dark yellow, Urine Appearance Cloudy, Urine pH 7.0, Ur Specific [place] 1.020, Urine Protein Trace, Urine Glucose (UA) Negative, Urine Ketones Negative, Urine Blood Trace, Urine Nitrate Negative, Urine Bilirubin Negative, Urine Urobilinogen 4, Ur Leukocyte Esterase 1+ A 05/16/21 19:43: [facility] Negative 05/16/21 20:00: Serum HCG, Qual Negative Orders (Tests/Meds): ORDERS Category Date Time Status Urine Culture Stat Micro 05/16/21 18:45 Results [facility] [place] - General Stated complaint: UTI Time Seen by Provider: 05/16/21 19:30 Mode of Arrival: Ambulatory Source of Information: Patient Limitations: No Limitations Description of Symptoms (Recalled from Triage Doc. by RN): PATIENT C/O BURNING WITH URINATION THAT STARTED LAST WEEK HEENT Symptoms (Recalled from RN notes): No Resp Symptoms (Recalled from RN notes): No Skin Symptoms (Recalled from RN notes): No MS Symptoms (Recalled from RN notes): No Functional Status (Recalled from RN notes): WNL - History of Present Illness Provider Complaint: She states that for the past 5 days or so, she has progressively worsening dysuria and urinary frequency. She has also had urgency. She denies any fever or chills. She denies low back pain. She thinks that her period may be a little late also. She is unsure if she is or not. - Related Data Home Medications Medication Instructions Recorded Confirmed Omeprazole [Omeprazole 20mg Tab] 20 mg PO HS 05/21/18 08/30/18 Ascorbate Calcium [Vitamin C] 500 mg PO HS 05/22/18 08/30/18 Ergocalciferol (Vitamin D2) 400 unit PO HS 05/22/18 08/30/18 [Vitamin D] L.acidoph,Paracasei, B.lactis 1 each PO HS 05/22/18 08/30/18 [Probiotic] [place]-3 Fatty Acids [Fish Oil] 300 mg PO HS 05/22/18 08/30/18 norethindrone-e.estradioL-iron 1 tab PO HS 06/26/18 08/30/18 [Junel Fe 1 mg-20 Mcg Tablet] Previous Rx's Medication Instructions Recorded Azithromycin [Z-Ludin 250mg Tab*] 250 mg PO UD DOSE PK #6 tab 10/09/20 Brompheniramine/Pseudoephed/Dm 5 ml PO Q6HP PRN #240 syrup 10/09/20 [Bromfed Dm Cough Syrup] predniSONE [Deltasone 10mg tablet] 10 mg PO BID 3 Days #6 tab 10/09/20 cephALEXin [cephALEXin 500mg 500 mg PO Q6H 7 Days #28 cap 05/16/21 capsule
[2021-05-16 19:53] LABS: UTC Pregnancy Test, Urine Negative (Negative)
[2021-05-16 20:24] LABS: HCG Qualitative, Serum Negative (Negative)
== END 2021-05-16 20:24 | disposition home or self-care (01) ==
PROVIDERS: Emergency Provider Nurse Practitioner Family
DX: N39.0 Urinary tract infection, site not specified (principal)
CPT/HCPCS: 81003; 81025; 84703; 87086; 87088; 87186; 99203; G0463

== ENCOUNTER 2021-08-19 15:27 | Emergency (ER) | payer BC, SELFPAY ==
[2021-08-19 16:55] VITALS: BP 144/99; PULSE 88; RESP 19; TEMP 36.9; O2SAT 97; BMI 28.7
--- NOTE | 2021-08-19 16:59 | HMH.EDUTC ---
[facility] [place] Clinical Impression: Viral upper respiratory illness Disposition: Home, Self-Care Condition on Discharge: Good Instructions: DI for Viral Upper Respiratory Infection -- Adult, DI for COVID-19 (Suspected or Confirmed ), Preventing the Spread of Coronavirus Discharge Instructions Additional Instructions: *Monitor Temp, Over the counter Motrin or Tylenol as directed/as needed Tylenol every 4 hours and Motrin every 6 hours (as long as your family doctor has told you that you can take it) for fever or pain. and straight to ER if unable to lower temp less than 101.0 after medication given *Warm salt water gargles may help to soothe the throat *Throat Lozenges *Warm fluids like tea with honey may help to soothe the throat *Sleep elevated *Humidifier/Vaporizer *Bromfed may cause drowsiness. Know how it effects you (your child) before driving, caring for small child, or sending your child to school. Not other antihistamines/allergy medications while taking bromfed Your throat swab was sent for culture. Those results are typically sent to your primary care. Be sure to follow up in 2-3 days with your family doctor/primary care physician if no improvement so they can review those result and treat if necessary. If you don?t have a primary care doctor, I recommend you get one but in the mean time, you will have to return to a walk in clinic Follow up IMMEDIATELY for new or worsening symptoms or no Noticeable improvement over the next 48-72 hours. 911 for difficulty breathing or swallowing You were tested for today for COVID19 your test result should be back in the next 24-48 hours, you check your results on the [facility] my health portal if you have trouble logging on or seeing your results you may call You was given a handout with instructions for Self Quarantine and Self isolation for while you wait on test results and what to do if they are positive If you are positive the Health Dept will be contacting you also Make sure to take your Vitamins Vit. C Vit D and Zinc if you can take them Prescriptions: Brompheniramine/Pseudoephed/Dm [Bromfed Dm Cough Syrup] 5 - 10 ml PO Q46H PRN #200 ml PRN Reason: Cough Transmission Status: Pending to [facility] #[id number] Referrals: Provider,Referral, MD [Primary Care Provider] - As needed Forms: Work/School Release Time of Disposition: 17:05 Medical Decision Making - Tal Inquiry Pt receiving controlled substance: No Tal was queried for this patient: No Vital Signs: 08/19/21 16:55 Temperature 98.5 F Temperature Source Oral Pulse Rate [Right Radial] 88 Respiratory Rate 19 Blood Pressure [Right Arm] 144/99 H Blood Pressure Mean [Right Arm] 114 Blood Pressure Source [Right Arm] Automatic Cuff Blood Pressure Position [Right Arm] Sitting 02 Sat by Pulse Oximetry 97 Oxygen Delivery Method Room Air - Lab Data Lab results reviewed: Yes: I reviewed the patient's lab results. Orders (Tests/Meds): ORDERS Category Date Time Status Covid-19 Nasal PCR ([facility]) Routine Lab 08/19/21 16:53 Received Medical Decision Narrative: Denies chance of state that she just got off her Period [facility] [place] HPI - General Stated complaint: fevermsore throat,cough.congestion Time Seen by Provider: 08/19/21 16:59 Mode of Arrival: Ambulatory Source of Information: Patient Limitations: No Limitations Description of Symptoms (Recalled from Triage Doc. by RN): C/O sore throat, chills, fever, cough x2 days HEENT Symptoms (Recalled from RN notes): Yes (sore throat) Resp Symptoms (Recalled from RN notes): Yes (cough) Skin Symptoms (Recalled from RN notes): No MS Symptoms (Recalled from RN notes): No Functional Status (Recalled from RN notes): n/a - History of Present Illness Provider Complaint: Patient state that she has not felt well for the last 2-3 days States that she has been having sore throat, fever, chills and body aches States that she has been around someone that rece
[2021-08-19 17:01] LABS: UTC Strep Screen (Rapid) Negative (Negative)
[2021-08-19 17:02] LABS: UTC Influenza A Antigen Negative (Negative); UTC Influenza B Antigen Negative (Negative)
[2021-08-19 17:16] VITALS: BP 144/99; PULSE 88; RESP 19; TEMP 36.9; O2SAT 97
== END 2021-08-19 17:17 | disposition home or self-care (01) ==
PROVIDERS: Emergency Provider Nurse Practitioner
DX: J06.9 Acute upper respiratory infection, unspecified (principal); K21.9 Gastro-esophageal reflux disease without esophagitis
CPT/HCPCS: 87804; 87880; 99203; C9803; G0463; U0003; U0005

== ENCOUNTER 2021-08-22 11:49 | Emergency (ER) | payer BC, SELFPAY ==
[2021-08-22 12:56] VITALS: BP 129/86; PULSE 93; RESP 18; TEMP 37; O2SAT 97; BMI 31.0
[2021-08-22 13:07] VITALS: BP 129/86; PULSE 93; RESP 18; TEMP 37
--- NOTE | 2021-08-22 13:11 | HMH.EDUTC ---
[facility] [place] Clinical Impression: Bronchitis Sinusitis Qualifiers: Sinusitis location: unspecified location Chronicity: acute Recurrence: non-recurrent Qualified Code(s): J01.90 - Acute sinusitis, unspecified Disposition: Home, Self-Care Condition on Discharge: Good Instructions: DI for Sinusitis, DI for Acute Bronchitis Additional Instructions: Drink plenty of fluids. Take tylenol or ibuprofen for pain or fever. Take the medications as directed. Follow up with your regular doctor. GO TO THE ER FOR ANY WORSENING SYMPTOMS The cough medication (promethazine dm) will make you drowsy, so don't drive or operate heavy machinery after taking it. Prescriptions: Promethazine/Dextromethorphan [Promethazine-Dm Syrup] 5 ml PO Q6HP PRN #240 ml PRN Reason: Cough Transmission Status: Pending to [facility] #[id number] Amoxicillin/Potassium Clav [Augmentin 875-125 Tablet] 1 tab PO Q12H 10 Days #20 tab Transmission Status: Pending to [facility] #[id number] guaiFENesin [Mucinex 600mg tablet] 1 - 2 tab PO BIDP PRN #30 tab PRN Reason: Congestion Transmission Status: Pending to [facility] #[id number] predniSONE [Prednisone 20mg Tab] 20 mg PO BID 4 Days #8 tab Transmission Status: Pending to [facility] #[id number] Referrals: Provider,Referral, [Primary Care Provider] - Forms: Work/School Release Time of Disposition: 13:56 Medical Decision Making - Medical Records Medical records reviewed: No: I reviewed the patient's medical records. - Tal Inquiry Pt receiving controlled substance: No Vital Signs: 08/22/21 12:56 08/22/21 13:07 Temperature 98.6 F 98.6 F Temperature Source Oral Pulse Rate 93 H Pulse Rate [Left] 93 H Respiratory Rate 18 18 Blood Pressure 129/86 Blood Pressure [Right Arm] 129/86 Blood Pressure Mean [Right Arm] 100 02 Sat by Pulse Oximetry 97 - Lab Data Lab results reviewed: Yes: I reviewed the patient's lab results. [facility] [place] - General Stated complaint: head cold, congestion Time Seen by Provider: 08/22/21 13:11 Mode of Arrival: Ambulatory Source of Information: Patient Limitations: No Limitations Description of Symptoms (Recalled from Triage Doc. by RN): pt c/o sinus pressure/drainage and fever. pt states she was here 08/19 and tested for strep/flu/covid all of which were negative. pt is refusing to be swabbed for anything today. HEENT Symptoms (Recalled from RN notes): Yes (nasal congestion/drainage) Resp Symptoms (Recalled from RN notes): No Skin Symptoms (Recalled from RN notes): No MS Symptoms (Recalled from RN notes): No Functional Status (Recalled from RN notes): wnl - History of Present Illness Provider Complaint: She state that she has been sick for the past 5 days. She was here 3 days ago and tested negative for strep throat, covid-19, and influenza then. She is back because she is having worse sinus congestion and she feels like she needs to be treated for a sinus infection. - Related Data Home Medications Medication Instructions Recorded Confirmed Omeprazole [Omeprazole 20mg Tab] 20 mg PO HS 05/21/18 08/30/18 Ascorbate Calcium [Vitamin C] 500 mg PO HS 05/22/18 08/30/18 Ergocalciferol (Vitamin D2) 400 unit PO HS 05/22/18 08/30/18 [Vitamin D] L.acidoph,Paracasei, B.lactis 1 each PO HS 05/22/18 08/30/18 [Probiotic] [place]-3 Fatty Acids [Fish Oil] 300 mg PO HS 05/22/18 08/30/18 norethindrone-e.estradioL-iron 1 tab PO HS 06/26/18 08/30/18 [Junel Fe 1 mg-20 Mcg Tablet] Previous Rx's Medication Instructions Recorded Azithromycin [Z-Ludin 250mg Tab*] 250 mg PO UD DOSE PK #6 tab 10/09/20 Brompheniramine/Pseudoephed/Dm 5 ml PO Q6HP PRN #240 syrup 10/09/20 [Bromfed Dm Cough Syrup] predniSONE [Deltasone 10mg tablet] 10 mg PO BID 3 Days #6 tab 10/09/20 cephALEXin [cephALEXin 500mg 500 mg PO Q6H 7 Days #28 cap 05/16/21 capsule] Brompheniramine/Pseudoephed/Dm 5 - 10 ml PO Q46H PRN #200 ml 08/19/21 [Bromfed Dm Cou
== END 2021-08-22 14:08 | disposition home or self-care (01) ==
PROVIDERS: Emergency Provider Nurse Practitioner Family
DX: J20.9 Acute bronchitis, unspecified (principal); J01.90 Acute sinusitis, unspecified; K21.9 Gastro-esophageal reflux disease without esophagitis
CPT/HCPCS: 99202; G0463

== ENCOUNTER 2021-09-24 10:27 | Emergency (ER) | payer BC, SELFPAY ==
[2021-09-24 10:58] VITALS: BP 134/83; PULSE 91; RESP 16; TEMP 36.9; O2SAT 97; BMI 31.0
--- NOTE | 2021-09-24 11:02 | HMH.EDUTC ---
[facility] [place] Clinical Impression: Exposure to COVID-19 virus Pharyngitis Qualifiers: Pharyngitis/tonsillitis etiology: unspecified etiology Qualified Code(s): J02.9 - Acute pharyngitis, unspecified Disposition: Home, Self-Care Condition on Discharge: Good Instructions: Strep Throat, DI for Pharyngitis/Tonsillopharyngitis -- Adult, DI for Strep Throat, DI for COVID-19 (Suspected or Confirmed ), Preventing the Spread of Coronavirus Discharge Instructions Additional Instructions: Drink plenty of fluids. Take tylenol or ibuprofen for pain or fever. Take the medications as directed. Follow up with your regular doctor. GO TO THE ER FOR ANY WORSENING SYMPTOMS Quarantine until you know the results of your covid-19 test. Notify your school or workplace of your results and follow their instructions regarding return to work/school. Prescriptions: Brompheniramine/Pseudoephed/Dm [Bromfed Dm Cough Syrup] 5 ml PO Q6HP PRN #240 ml PRN Reason: Cough Transmission Status: Received by [facility] #[id number] Ibuprofen [Ibuprofen 600mg Tablet] 600 mg PO Q6HP PRN #30 tab PRN Reason: Mild Pain Transmission Status: Received by [facility] #[id number] Azithromycin [Z-Ludin 250mg Tab*] 250 mg PO UD DOSE PK #6 tab Transmission Status: Received by [facility] #[id number] Referrals: Provider,Referral, MD [Primary Care Provider] - Forms: Work/School Release Time of Disposition: 11:34 Medical Decision Making - Medical Records Medical records reviewed: No: I reviewed the patient's medical records. - Tal Inquiry Pt receiving controlled substance: No Vital Signs: 09/24/21 10:58 09/24/21 11:50 Temperature 98.4 F 98.4 F Temperature Source Oral Pulse Rate 91 H Pulse Rate [Left] 91 H Respiratory Rate 16 16 Blood Pressure 134/83 Blood Pressure [Right Arm] 134/83 Blood Pressure Mean [Right Arm] 100 02 Sat by Pulse Oximetry 97 - Lab Data Lab results reviewed: Yes: I reviewed the patient's lab results. Lab Results 09/24/21 10:55: Group A Strep Rapid Negative 09/24/21 11:27: Chlamy pneumoniae PCR Not detected, Adenovirus (PCR) Not detected, B. pertussis DNA (PCR) Not detected, Coronavirus OC43 (PCR) Detected A, Coronavirus HKU1 (PCR) Not detected, Coronavirus 229E (PCR) Not detected, SARS-CoV-2 (PCR) Not detected, Coronavirus NL63 (PCR) Not detected, Human Metapneumovir PCR Not detected, Influenza A (H1) PCR Not detected, Influ A (H1N1/09) PCR Not detected, Influenza A (H3) PCR Not detected, Influenza Type A (PCR) Not detected, Influenza Type B (PCR) Not detected, M. pneumoniae (PCR) Not detected, Parainfluenza 1 (PCR) Not detected, Parainfluenza 2 (PCR) Not detected, Parainfluenza 3 (PCR) Not detected, Parainfluenza 4 (PCR) Not detected, RSV (PCR) Not detected, Entero/Rhino (PCR) Not detected Orders (Tests/Meds): ORDERS Category Date Time Status Strep Screen Confirmation Stat Micro 09/24/21 10:55 Received [facility] [place] - General Stated complaint: possible strep throat Time Seen by Provider: 09/24/21 11:02 Mode of Arrival: Ambulatory Source of Information: Patient Limitations: No Limitations Description of Symptoms (Recalled from Triage Doc. by RN): pt c/o a sore throat x2 days. HEENT Symptoms (Recalled from RN notes): Yes Resp Symptoms (Recalled from RN notes): No Skin Symptoms (Recalled from RN notes): No MS Symptoms (Recalled from RN notes): No Functional Status (Recalled from RN notes): wnl - History of Present Illness Provider Complaint: She c/o sore throat and feeling bad for the past 3 days. She has a history of getting strep throat fairly frequently and she states that is what she feels like is going on now. She has not been vaccinated against covid-19, but she did have covid-19 about 6 months ago. She states that she did not feel like this when she had covid-19. She denies any chest congestion, body aches, fever. - Related Data Home Medications Medication
[2021-09-24 11:08] LABS: Strep Scrn Group A (Rapid) Negative (Negative)
[2021-09-24 11:48] LABS: Adenovirus,PCR Not Detected (NotDetected); Bordetella Pertussis Not Detected (NotDetected); Chlamydophila Pneumoniae, PCR Not Detected (NotDetected); Coronavirus 19, PCR Not Detected (NotDetected); Coronavirus 229E Not Detected (NotDetected); Coronavirus NL63 Not Detected (NotDetected); Coronovirus HKU1,PCR Not Detected (NotDetected); Human Metapneumovirus Not Detected (NotDetected); Influenza A, PCR Not Detected (NotDetected); Influenza AH1, 2009 Not Detected (NotDetected); Influenza AH1, PCR Not Detected (NotDetected); Influenza AH3,PCR Not Detected (NotDetected); Influenza B, PCR Not Detected (NotDetected); Mycoplasma Pneumoniae, PCR Not Detected (NotDetected); Parainfluenza 1, PCR Not Detected (NotDetected); Parainfluenza 2, PCR Not Detected (NotDetected); Parainfluenza 3, PCR Not Detected (NotDetected); Parainfluenza 4, PCR Not Detected (NotDetected); Respiratory Syncytial Virus Not Detected (NotDetected); Rhinovirus/Enterovirus Not Detected (NotDetected)
[2021-09-24 11:50] VITALS: BP 134/83; PULSE 91; RESP 16; TEMP 36.9
[2021-09-24 13:47] LABS: Coronavirus OC43 Detected (NotDetected)
== END 2021-09-24 11:51 | disposition home or self-care (01) ==
PROVIDERS: Emergency Provider Nurse Practitioner Family
DX: B34.2 Coronavirus infection, unspecified (principal); J02.9 Acute pharyngitis, unspecified; K21.9 Gastro-esophageal reflux disease without esophagitis
CPT/HCPCS: 87430; 87581; 87632; 87798; 99203; C9803; G0463; U0003; U0005

== ENCOUNTER 2021-12-03 12:13 | Emergency (ER) | payer BC, SELFPAY ==
[2021-12-03 13:01] VITALS: BP 147/95; PULSE 85; RESP 19; TEMP 37; O2SAT 97; BMI 31.3
--- NOTE | 2021-12-03 13:05 | HMH.EDUTC ---
[facility] [place] Dis[place] Clinical Impression: Strep throat Disposition: Home, Self-Care Condition on Discharge: Good Instructions: Strep Throat, DI for Strep Throat Additional Instructions: Drink plenty of fluids. Take tylenol or ibuprofen for pain or fever. Take the medications as directed. Follow up with your regular doctor. GO TO THE ER FOR ANY WORSENING SYMPTOMS Throw your tooth brush away and get a new one. Prescriptions: Brompheniramine/Pseudoephed/Dm [Bromfed Dm Cough Syrup] 5 ml PO Q6HP PRN #240 ml PRN Reason: Cough Transmission Status: Received by [facility] # Ondansetron [Zofran 4mg ODT] 4 mg PO Q8HP PRN #9 tab PRN Reason: Nausea Transmission Status: Received by [facility] # Amoxicillin [Amoxicillin 875MG Tab] 875 mg PO Q12H #20 tab Transmission Status: Received by [facility] # methylPREDNISolone [Medrol] 4 mg PO DIRECTED 6 Days #21 packet Transmission Status: Received by [facility] # Referrals: Provider,Referral, [Primary Care Provider] - Forms: Work/School Release Time of Disposition: 14:30 Medical Decision Making - Medical Records Medical records reviewed: No: I reviewed the patient's medical records. - Tal Inquiry Pt receiving controlled substance: No Vital Signs: 12/03/21 13:01 12/03/21 14:38 Temperature 98.6 F 98.6 F Temperature Source Oral Pulse Rate 85 Pulse Rate [Left] 85 Respiratory Rate 19 19 Blood Pressure 147/95 H Blood Pressure [Right Arm] 147/95 H Blood Pressure Mean [Right Arm] 112 02 Sat by Pulse Oximetry 97 - Lab Data Lab results reviewed: Yes: I reviewed the patient's lab results. Lab Results 12/03/21 13:04: Group A Strep Rapid Positive A 12/03/21 13:06: Influenza Type A Ag Negative, Influenza Type B Ag Negative [facility] [place] HPI - General Stated complaint: really bad cough sore throat Time Seen by Provider: 12/03/21 13:05 - History of Present Illness Provider Complaint: She c/o sore throat, chills, low grade fever, nausea and malaise for the past 2 days. - Related Data Home Medications Medication Instructions Recorded Confirmed Omeprazole [Omeprazole 20mg Tab] 20 mg PO HS 05/21/18 08/30/18 Ascorbate Calcium [Vitamin C] 500 mg PO HS 05/22/18 08/30/18 Ergocalciferol (Vitamin D2) 400 unit PO HS 05/22/18 08/30/18 [Vitamin D] L.acidoph,Paracasei, B.lactis 1 each PO HS 05/22/18 08/30/18 [Probiotic] [place]-3 Fatty Acids [Fish Oil] 300 mg PO HS 05/22/18 08/30/18 norethindrone-e.estradioL-iron 1 tab PO HS 06/26/18 08/30/18 [Junel Fe 1 mg-20 Mcg Tablet] Previous Rx's Medication Instructions Recorded Azithromycin [Z-Ludin 250mg Tab*] 250 mg PO UD DOSE PK #6 tab 10/09/20 Brompheniramine/Pseudoephed/Dm 5 ml PO Q6HP PRN #240 syrup 10/09/20 [Bromfed Dm Cough Syrup] predniSONE [Deltasone 10mg tablet] 10 mg PO BID 3 Days #6 tab 10/09/20 cephALEXin [cephALEXin 500mg 500 mg PO Q6H 7 Days #28 cap 05/16/21 capsule] Brompheniramine/Pseudoephed/Dm 5 - 10 ml PO Q46H PRN #200 ml 08/19/21 [Bromfed Dm Cough Syrup] Amoxicillin/Potassium Clav 1 tab PO Q12H 10 Days #20 tab 08/22/21 [Augmentin 875-125 Tablet] Promethazine/Dextromethorphan 5 ml PO Q6HP PRN #240 ml 08/22/21 [Promethazine-Dm Syrup] guaiFENesin [Mucinex 600mg tablet] 1 - 2 tab PO BIDP PRN #30 tab 08/22/21 predniSONE [Prednisone 20mg 20 mg PO BID 4 Days #8 tab 08/22/21 Tab] Azithromycin [Z-Ludin 250mg Tab*] 250 mg PO UD DOSE PK #6 tab 09/24/21 Brompheniramine/Pseudoephed/Dm 5 ml PO Q6HP PRN #240 ml 09/24/21 [Bromfed Dm Cough Syrup] Ibuprofen [Ibuprofen 600mg 600 mg PO Q6HP PRN #30 tab 09/24/21 Tablet] Amoxicillin [Amoxicillin 875MG 875 mg PO Q12H #20 tab 12/03/21 Tab] Brompheniramine/Pseudoephed/Dm 5 ml PO Q6HP PRN #240 ml 12/03/21 [Bromfed Dm Cough Syrup] Ondansetron [Zofran 4mg ODT] 4 mg PO Q8HP PRN #9 tab 12/03/21 methylPREDNISolone [Medrol] 4 mg PO DIRECTED 6 Da
[2021-12-03 13:15] LABS: UTC Influenza A Antigen Negative (Negative)
[2021-12-03 13:16] LABS: UTC Influenza B Antigen Negative (Negative)
[2021-12-03 13:32] LABS: Strep Scrn Group A (Rapid) Positive (Negative)
[2021-12-03 14:38] VITALS: BP 147/95; PULSE 85; RESP 19; TEMP 37
== END 2021-12-03 14:39 | disposition home or self-care (01) ==
PROVIDERS: Emergency Provider Nurse Practitioner Family
DX: J02.0 Streptococcal pharyngitis (principal); B95.0 Streptococcus, group A, as the cause of diseases classified elsewhere; N39.0 Urinary tract infection, site not specified; K21.9 Gastro-esophageal reflux disease without esophagitis; Z79.1 Long term (current) use of non-steroidal anti-inflammatories (NSAID); Z79.52 Long term (current) use of systemic steroids; Z86.14 Personal history of Methicillin resistant Staphylococcus aureus infection; Z82.49 Family history of ischemic heart disease and other diseases of the circulatory system; Z80.9 Family history of malignant neoplasm, unspecified; Z83.3 Family history of diabetes mellitus
CPT/HCPCS: 87430; 87804; 99213; G0463

== ENCOUNTER 2022-01-14 17:31 | Emergency (ER) | payer BC, SELFPAY ==
--- NOTE | 2022-01-14 17:49 | XR_ITS ---
PROCEDURE INFORMATION: Exam: XR Left Foot Exam date and time: 01/14/2022 5:52 PM Age: 26 years old Clinical indication: Pain; Foot; Left; Patient HX: Fell on Wednesday. ; Additional info: Fall TECHNIQUE: Imaging protocol: XR Left foot. Views: 3 or more views. COMPARISON: No relevant prior studies available. FINDINGS: Bones/joints: Normal. Soft tissues: Normal. Other findings: No markers have been placed indicate region of patient discomfort. IMPRESSION: No evidence of acute osseous injury.
--- NOTE | 2022-01-14 17:49 | XR_ITS ---
PROCEDURE INFORMATION: Exam: XR Left Ankle Exam date and time: 01/14/2022 5:53 PM Age: 26 years old Clinical indication: Pain; Ankle; Left; Patient HX: Fell on Wednesday. ; Additional info: Fall TECHNIQUE: Imaging protocol: XR Left ankle. Views: 3 or more views. COMPARISON: CR XR FOOT LT MIN 3V 01/14/2022 5:52 PM FINDINGS: Bones/joints: Normal. Soft tissues: Normal. IMPRESSION: No acute findings.
[2022-01-14 17:57] VITALS: BP 122/82; PULSE 90; RESP 17; TEMP 36.6; O2SAT 100; BMI 30.2
--- NOTE | 2022-01-14 18:00 | HMH.EDUTC ---
[facility] [place] Clinical Impression: Sprain of left foot Qualifiers: Encounter type: initial encounter Qualified Code(s): S93.602A - Unspecified sprain of left foot, initial encounter Left ankle sprain Qualifiers: Encounter type: initial encounter Involved ligament of ankle: unspecified ligament Qualified Code(s): S93.402A - Sprain of unspecified ligament of left ankle, initial encounter Disposition: Home, Self-Care Condition on Discharge: Good Instructions: Ankle Sprain, DI for Ankle Sprain, How to Apply an Cory Wrap Additional Instructions: Rest the extremity, apply ice for 15 minutes as tolerated three or four times per day, Wear the cory wrap for compression, Elevate the extremity as tolerated while you are resting. Take ibuprofen for pain. I sent in a prescription to your pharmacy. Follow up with Dr. Jimenez (podiatry). Sometimes there can be fractures that don't show up well on the first set of x-rays. So, you should follow up if you continue to have symptoms. I put in a referral but you need to call her office and schedule an appointment. Follow up with your regular doctor. GO TO THE ER FOR ANY WORSENING SYMPTOMS Prescriptions: Ibuprofen [Ibuprofen 800mg Tablet] 800 mg PO Q8HP PRN #30 tab PRN Reason: Moderate Pain Transmission Status: Received by [facility] #[id number] Referrals: Provider,Ezekiel, [Primary Care Provider] - Jordana Jimenez DPM [Staff Physician] - Forms: Work/School Release Time of Disposition: 18:49 Medical Decision Making - Medical Records Medical records reviewed: No: I reviewed the patient's medical records. - Tal Inquiry Pt receiving controlled substance: No Vital Signs: 01/14/22 17:57 01/14/22 18:52 Temperature 97.9 F 97.9 F Temperature Source Oral Pulse Rate 90 Pulse Rate [Left Radial] 90 Respiratory Rate 17 17 Blood Pressure 122/82 Blood Pressure [Right Arm] 122/82 Blood Pressure Mean [Right Arm] 95 02 Sat by Pulse Oximetry 100 - Radiology Data #1 Image(s): Ankle Image Reviewed: Yes I reviewed the patient's radiology image, Yes I have reviewed radiologist's interpretation Preliminary Findings: No Fracture Seen PROCEDURE INFORMATION: Exam: XR Left Ankle Exam date and time: 01/14/2022 5:53 PM Age: 26 years old Clinical indication: Pain; Ankle; Left; Patient HX: Fell on Wednesday. ; Additional info: Fall TECHNIQUE: Imaging protocol: XR Left ankle. Views: 3 or more views. COMPARISON: CR XR FOOT LT MIN 3V 01/14/2022 5:52 PM FINDINGS: Bones/joints: Normal. Soft tissues: Normal. IMPRESSION: No acute findings. #2 Image(s): Foot/Toes Image Reviewed: Yes I reviewed the patient's radiology image, Yes I have reviewed radiologist's interpretation Preliminary Findings: No Fracture Seen PROCEDURE INFORMATION: Exam: XR Left Foot Exam date and time: 01/14/2022 5:52 PM Age: 26 years old Clinical indication: Pain; Foot; Left; Patient HX: Fell on Wednesday. ; Additional info: Fall TECHNIQUE: Imaging protocol: XR Left foot. Views: 3 or more views. COMPARISON: No relevant prior studies available. FINDINGS: Bones/joints: Normal. Soft tissues: Normal. Other findings: No markers have been placed indicate region of patient discomfort. IMPRESSION: No evidence of acute osseous injury. [facility] [place] HPI - General Stated complaint: AO Fall 01/12 hurt L ankle Time Seen by Provider: 01/14/22 18:00 Description of Symptoms (Recalled from Triage Doc. by RN): patient comes in today with complaints of a fall and injury to her left ankle and foot. patient thinks that she might have sprained it. HEENT Symptoms (Recalled from RN notes): No Resp Symptoms (Recalled from RN notes): No Skin Symptoms (Recalled from RN notes): No MS Symptoms (Recalled from RN notes): Yes Functional St
[2022-01-14 18:52] VITALS: BP 122/82; PULSE 90; RESP 17; TEMP 36.6
== END 2022-01-14 18:57 | disposition home or self-care (01) ==
PROVIDERS: Emergency Provider Nurse Practitioner Family
DX: S93.402A Sprain of unspecified ligament of left ankle, initial encounter (principal); X50.1XXA Overexertion from prolonged static or awkward postures, initial encounter
CPT/HCPCS: 73610; 73630; 99212; G0463

== ENCOUNTER 2022-04-03 10:14 | Emergency (ER) | payer BC, SELFPAY ==
--- NOTE | 2022-04-03 11:44 | EXP.UTC ---
Discharge Plan Disposition Patient Disposition: Home, Self-Care Condition: Good Prescriptions Prescriptions: New Cortisporin-TC 3.3-3-10-0.5 mg/mL drops,suspension 4 drp otic (ear) TID Qty: 10 0RF No Action hyoscyamine sulfate [Levsin/SL] 0.125 mg tablet, sublingual 0.125 mg PO QID Qty: 120 2RF lactase [Lactaid] 3,000 unit tablet 3,000 unit PO QAC Qty: 120 2RF Rx Instructions: administer with first bite of dairy food inulin 2 gram tablet,chewable 2 g PO BID Qty: 120 2RF Referrals Referrals: Arianna Davalos PA [Primary Care Provider] - Enter time for follow up Activity Restrictions/Add. Instructions Additional Instructions/Restrictions: Use the ear drops as direcred Take tylenol or ibuprofen for pain or fever. Follow up with your regular doctor. GO TO THE ER FOR ANY WORSENING SYMPTOMS Clinical Impressions Clinical Impression: Otitis externa Instructions Patient Instructions: Otitis Externa, DI for Otitis Externa Discharge ED Provider: Tay Avalos [facility] General Stated complaint: RT ear pain Time Seen by Provider: 04/03/22 11:45 History of Present Illness Provider Complaint: She states that for the past 1 day she has had left ear pain and ear discharge. Related Data Previous Rx's Medication Instructions Recorded hyoscyamine sulfate 0.125 mg 0.125 mg PO QID #120 tabs 01/28/22 sublingual tablet (Levsin/SL) inulin 2 gram chewable tablet 2 g PO BID #120 tabs 01/28/22 lactase 3,000 unit tablet (Lactaid) 3,000 unit PO QAC #120 tabs 01/28/22 mqxdbqjj-saatda-SU-thonzonm 3.3 4 drp otic (ear) TID #10 mL 04/03/22 mg-3 mg-10 mg-0.5 mg/mL ear drops,susp (Cortisporin-TC) Allergies Allergy/AdvReac Type Severity Reaction Status Date / Time No Known Allergies Allergy Verified 04/03/22 12:03 [facility] Medical History Irritable bowel syndrome Social History Smoking Status: Unknown if ever smoked alcohol intake: never substance use type: denies use current occupational status: employed household members: family and children housing: house current occupation: [employer] current occupational exposures/hazards: No caffeine: Yes ROS Obtained: Yes All systems reviewed & no additional complaints except as documented Constitutional Constitutional: Reports chills and Reports fever(s) Eyes Eyes: Denies eye discharge ENT Ears, Nose, Mouth, and Throat: Reports as per HPI Cardiovascular Cardiovascular: Denies chest pain Respiratory Respiratory: Denies chest congestion and Reports cough Gastrointestinal Gastrointestingal: Reports nausea; Denies abdominal pain, constipation, cramping, diarrhea or vomiting Musculoskeletal Musculoskeletal: Denies arthralgias Integumentary/Breasts Skin/Breast: Denies rash Neurologic Neurologic: Denies paresthesias Physical Exam General General appearance: alert and in no apparent distress Head Head exam: atraumatic and normocephalic Eye Eye exam: Present normal appearance, PERRL and EOMI ENT ENT exam: Present normal exam, normal oropharynx, mucous membranes moist and TM's normal bilaterally Neck Neck exam: Present normal inspection, full ROM and trachea midline; Absent tenderness, meningismus or lymphadenopathy Chest Chest inspection: Present normal inspection and symmetric chest wall rise; Absent tenderness Respiratory Respiratory exam: Present normal lung sounds bilaterally; Absent respiratory distress, wheezes or stridor Cardiovascular Cardiovascular exam: Present regular rate, normal rhythm and normal heart sounds Abdominal Exam Abdominal exam: Present soft and normal bowel sounds; Absent distention, tenderness, guarding, rebound or rigidity Extremities Exam Extremities exam: Present normal inspection and full ROM; Absent tenderness Neurological Exam Neurological exam: Present alert and leonel
[2022-04-03 12:00] VITALS: BP 122/81; PULSE 74; RESP 18; TEMP 36.9; O2SAT 100; BMI 31.0
[2022-04-03 12:14] VITALS: BP 122/81; PULSE 74; RESP 18; TEMP 36.9
== END 2022-04-03 12:15 | disposition home or self-care (01) ==
PROVIDERS: Emergency Provider Nurse Practitioner Family; PCP Physician Assistant
DX: H60.92 Unspecified otitis externa, left ear (principal); R50.9 Fever, unspecified; K58.9 Irritable bowel syndrome, unspecified; Z79.4 Long term (current) use of insulin; Z79.899 Other long term (current) drug therapy
CPT/HCPCS: 99213; G0463

== ENCOUNTER 2022-06-17 17:44 | Emergency (ER) | payer BC, SELFPAY ==
--- NOTE | 2022-06-17 19:27 | EXP.UTC ---
Discharge Plan Disposition Patient Disposition: Home, Self-Care Condition: Good Prescriptions Prescriptions: New amoxicillin [amoxicillin] 875 mg tablet 875 mg PO Q12H Qty: 20 0RF methylprednisolone 4 mg Tablets,Dose Pack 4 mg PO DIRECTED Qty: 21 0RF kyyidkxfthfdvth-njjqkscgv-AF [Bromfed DM] 2-30-10 mg/5 mL Syrup 5 ml PO Q6H PRN (Reason: Cough) Qty: 240 0RF No Action hyoscyamine sulfate [Levsin/SL] 0.125 mg tablet, sublingual 0.125 mg PO QID Qty: 120 2RF lactase [Lactaid] 3,000 unit tablet 3,000 unit PO QAC Qty: 120 2RF Rx Instructions: administer with first bite of dairy food inulin 2 gram tablet,chewable 2 g PO BID Qty: 120 2RF Cortisporin-TC 3.3-3-10-0.5 mg/mL drops,suspension 4 drp otic (ear) TID Qty: 10 0RF Referrals Follow up/Referrals: Arianna Davalos PA [Primary Care Provider] - See instructions Activity Restrictions/Add. Instructions Additional Instructions/Restrictions: Drink plenty of fluids. Take tylenol or ibuprofen for pain or fever. Take the medications as directed. Follow up with your regular doctor. GO TO THE ER FOR ANY WORSENING SYMPTOMS Clinical Impressions Clinical Impression: Otitis media Stand Alone Forms Stand Alone Forms: Work/School Release Instructions Patient Instructions: Middle Ear Infection Discharge ED Provider: Tay Avalos [facility] [place] General Stated complaint: ear ache Time Seen by Provider: 06/17/22 19:27 History of Present Illness Provider Complaint: She states that for the past 1 week she has had bilateral ear pain and sinus congestion. Related Data Previous Rx's Medication Instructions Recorded hyoscyamine sulfate 0.125 mg 0.125 mg PO QID #120 tabs 01/28/22 sublingual tablet (Levsin/SL) inulin 2 gram chewable tablet 2 g PO BID #120 tabs 01/28/22 lactase 3,000 unit tablet (Lactaid) 3,000 unit PO QAC #120 tabs 01/28/22 zpxjygvp-csqsdd-UZ-thonzonm 3.3 4 drp otic (ear) TID #10 mL 04/03/22 mg-3 mg-10 mg-0.5 mg/mL ear drops,susp (Cortisporin-TC) amoxicillin 875 mg tablet 875 mg PO Q12H #20 tabs 06/17/22 jtqskmijvfxcrid-gciowqjgpdzrlwt-VX 5 ml PO Q6H PRN Cough #240 mL 06/17/22 2 mg-30 mg-10 mg/5 mL oral syrup (Bromfed DM) methylprednisolone 4 mg tablets in 4 mg PO DIRECTED #21 tabs 06/17/22 a dose pack Allergies Allergy/AdvReac Type Severity Reaction Status Date / Time No Known Allergies Allergy Verified 06/17/22 19:34 PFSH PFSH Medical History Irritable bowel syndrome Social History Smoking Status: Unknown if ever smoked alcohol intake: never substance use type: denies use current occupational status: employed Travel in the last 8 weeks: None household members: family and children housing: house current occupation: [employer] current occupational exposures/hazards: No caffeine: Yes ROS Obtained: Yes All systems reviewed & no additional complaints except as documented Constitutional Constitutional: Denies chills, Reports fever(s) and Reports poor appetite Eyes Eyes: Denies eye discharge ENT Ears, Nose, Mouth, and Throat: Denies ear discharge, Reports otalgia, Denies hearing loss, Denies sinus pain and Reports sore throat Cardiovascular Cardiovascular: Denies chest pain and Denies dyspnea Respiratory Respiratory: Denies chest congestion, Reports cough and Denies dyspnea Gastrointestinal Gastrointestingal: Denies abdominal pain, diarrhea, nausea or vomiting Musculoskeletal Musculoskeletal: Denies arthralgias Integumentary/Breasts Skin/Breast: Denies rash Physical Exam General General appearance: alert and in no apparent distress Head Head exam: atraumatic, normocephalic and normal inspection Eye Eye exam: Present normal appearance; Absent PERRL or EOMI ENT ENT exam: Present mucous membranes moist and normal external ear exam Expan
[2022-06-17 19:29] VITALS: BP 125/87; PULSE 71; RESP 18; TEMP 36.6; O2SAT 99; BMI 31.0
[2022-06-17 19:40] VITALS: BP 125/87; PULSE 71; RESP 18; TEMP 36.6
== END 2022-06-17 19:41 | disposition home or self-care (01) ==
PROVIDERS: Emergency Provider Nurse Practitioner Family; PCP Physician Assistant
DX: H66.90 Otitis media, unspecified, unspecified ear (principal)
CPT/HCPCS: 99212; G0463

== ENCOUNTER 2022-08-03 09:51 | Emergency (ER) | payer OTHER, SELFPAY ==
--- NOTE | 2022-08-03 11:11 | EXP.UTC ---
Discharge Plan Disposition Patient Disposition: Home, Self-Care Condition: Good Prescriptions Prescriptions: New oseltamivir [Tamiflu] 75 mg capsule 75 mg PO BID Qty: 10 0RF qftbouixpuxfrxn-gayobdnrd-QH [Bromfed DM] 2-30-10 mg/5 mL Syrup 5 ml PO Q6H PRN (Reason: Cough) Qty: 240 0RF ondansetron 4 mg Tablet,Disintegrating 4 mg PO Q8H PRN (Reason: Nausea) Qty: 20 0RF No Action hyoscyamine sulfate [Levsin/SL] 0.125 mg tablet, sublingual 0.125 mg PO QID Qty: 120 2RF lactase [Lactaid] 3,000 unit tablet 3,000 unit PO QAC Qty: 120 2RF Rx Instructions: administer with first bite of dairy food inulin 2 gram tablet,chewable 2 g PO BID Qty: 120 2RF amoxicillin [amoxicillin] 875 mg tablet 875 mg PO Q12H Qty: 20 0RF methylprednisolone 4 mg Tablets,Dose Pack 4 mg PO DIRECTED Qty: 21 0RF uvvoppcjuaqnvkp-dwmodtctm-KZ [Bromfed DM] 2-30-10 mg/5 mL Syrup 5 ml PO Q6H PRN (Reason: Cough) Qty: 240 0RF Cortisporin-TC 3.3-3-10-0.5 mg/mL drops,suspension 4 drp otic (ear) TID Qty: 10 0RF Referrals Follow up/Referrals: Arianna Davalos PA [Primary Care Provider] - See instructions Clinical Impressions Clinical Impression: Influenza A Stand Alone Forms Stand Alone Forms: Work/School Release Instructions Patient Instructions: DI for Influenza -- Adult, Oseltamivir Discharge ED Provider: Tay Avalos [facility] General Stated complaint: congestion, sob Time Seen by Provider: 08/03/22 11:11 History of Present Illness Provider Complaint: She states that for the past 2 days she has had fever, chills, body aches, a dry cough and scratchy sore throat. Her son had influenza A last week. Related Data Previous Rx's Medication Instructions Recorded hyoscyamine sulfate 0.125 mg 0.125 mg PO QID #120 tabs 01/28/22 sublingual tablet (Levsin/SL) inulin 2 gram chewable tablet 2 g PO BID #120 tabs 01/28/22 lactase 3,000 unit tablet (Lactaid) 3,000 unit PO QAC #120 tabs 01/28/22 zkapdfqs-bwbnmr-WP-thonzonm 3.3 4 drp otic (ear) TID #10 mL 04/03/22 mg-3 mg-10 mg-0.5 mg/mL ear drops,susp (Cortisporin-TC) amoxicillin 875 mg tablet 875 mg PO Q12H #20 tabs 06/17/22 efdbnqlsojkjovz-mszvwhqneumhusg-AY 5 ml PO Q6H PRN Cough #240 mL 06/17/22 2 mg-30 mg-10 mg/5 mL oral syrup (Bromfed DM) methylprednisolone 4 mg tablets in 4 mg PO DIRECTED #21 tabs 06/17/22 a dose pack aiuxotdlixncjtt-hmljmscddxckzxm-IM 5 ml PO Q6H PRN Cough #240 mL 08/03/22 2 mg-30 mg-10 mg/5 mL oral syrup (Bromfed DM) ondansetron 4 mg disintegrating 4 mg PO Q8H PRN Nausea #20 tabs 08/03/22 tablet oseltamivir 75 mg capsule (Tamiflu) 75 mg PO BID #10 caps 08/03/22 Allergies Allergy/AdvReac Type Severity Reaction Status Date / Time No Known Allergies Allergy Verified 08/03/22 11:18 [facility] Disclaimer: The information contained in this section may have been updated after the patient was seen, as this information can be updated by other users. Medical History Irritable bowel syndrome Social History Smoking Status: Unknown if ever smoked alcohol intake: never substance use type: denies use current occupational status: employed Travel in the last 8 weeks: None household members: family and children housing: house current occupation: [employer] current occupational exposures/hazards: No caffeine: Yes ROS Obtained: Yes All systems reviewed & no additional complaints except as documented Constitutional Constitutional: Reports chills and Reports fever(s) Eyes Eyes: Denies eye discharge ENT Ears, Nose, Mouth, and Throat: Reports as per HPI Cardiovascular Cardiovascular: Denies chest pain Respiratory Respiratory: Denies chest congestion and Reports cough Gastrointestinal Gastrointestingal: Reports nausea; Denies abdominal pain, constipation, cramping, diarrhea
[2022-08-03 11:15] VITALS: BP 156/105; PULSE 105; RESP 16; TEMP 36.7; O2SAT 100; BMI 31.0
[2022-08-03 11:24] LABS: UTC Influenza A Antigen Positive (Negative); UTC Strep Screen (Rapid) Negative (Negative)
[2022-08-03 11:25] LABS: UTC Influenza B Antigen Negative (Negative)
[2022-08-03 11:45] VITALS: BP 156/105; PULSE 105; RESP 16; TEMP 36.7
== END 2022-08-03 11:47 | disposition home or self-care (01) ==
PROVIDERS: Emergency Provider Nurse Practitioner Family; PCP Physician Assistant
DX: J10.1 Influenza due to other identified influenza virus with other respiratory manifestations (principal)
CPT/HCPCS: 87804; 87880; 99212; G0463

== ENCOUNTER 2022-09-25 17:43 | Emergency (ER) | payer OTHER, SELFPAY ==
[2022-09-25 17:50] VITALS: BP 138/91; PULSE 84; RESP 22; TEMP 36.9; O2SAT 98; BMI 30.7
--- NOTE | 2022-09-25 18:02 | EXP.UTC ---
Discharge Plan Disposition Patient Disposition: Home, Self-Care Condition: Good Prescriptions Prescriptions: New azithromycin [Zithromax Z-Ludin] 250 mg tablet See Rx Instructions .ROUTE .COMPLEX 5 Days Qty: 6 0RF Rx Instructions: For 250 mg dose pack: take 500 mg today (day 1), then 250 mg for 4 days (days 2-5) methylprednisolone [Medrol (Ludin)] 4 mg tablets,dose pack See Rx Instructions .Route .COMPLEX 6 Days Qty: 21 0RF Rx Instructions: taper pack; No Action hyoscyamine sulfate [Levsin/SL] 0.125 mg tablet, sublingual 0.125 mg PO QID Qty: 120 2RF lactase [Lactaid] 3,000 unit tablet 3,000 unit PO QAC Qty: 120 2RF Rx Instructions: administer with first bite of dairy food inulin 2 gram tablet,chewable 2 g PO BID Qty: 120 2RF amoxicillin [amoxicillin] 875 mg tablet 875 mg PO Q12H Qty: 20 0RF methylprednisolone 4 mg Tablets,Dose Pack 4 mg PO DIRECTED Qty: 21 0RF wpurbpyeajultey-tpdmljgom-MD [Bromfed DM] 2-30-10 mg/5 mL Syrup 5 ml PO Q6H PRN (Reason: Cough) Qty: 240 0RF oseltamivir [Tamiflu] 75 mg capsule 75 mg PO BID Qty: 10 0RF lhquhuquhfqnhnv-dwmoklrbc-UY [Bromfed DM] 2-30-10 mg/5 mL Syrup 5 ml PO Q6H PRN (Reason: Cough) Qty: 240 0RF ondansetron 4 mg Tablet,Disintegrating 4 mg PO Q8H PRN (Reason: Nausea) Qty: 20 0RF Cortisporin-TC 3.3-3-10-0.5 mg/mL drops,suspension 4 drp otic (ear) TID Qty: 10 0RF Referrals Follow up/Referrals: Arianna Davalos PA [Primary Care Provider] - See instructions Activity Restrictions/Add. Instructions Additional Instructions/Restrictions: *Monitor Temp, Over the counter Motrin or Tylenol as directed/as needed Tylenol every 4 hours and Motrin every 6 hours (as long as your family doctor has told you that you can take it) for fever or pain. and straight to ER if unable to lower temp less than 101.0 after medication given *Warm salt water gargles may help to soothe the throat *Throat Lozenges? *Warm fluids like tea with honey may help to soothe the throat? *Sleep elevated *Humidifier/Vaporizer Your throat swab was sent for culture. Those results are typically sent to your primary care. Be sure to follow up in 2-3 days with your family doctor/primary care physician if no improvement so they can review those result and treat if necessary. If you don?t have a primary care doctor, I recommend you get one but in the mean time, you will have to return to a walk in clinic Follow up IMMEDIATELY for new or worsening symptoms or no Noticeable improvement over the next 48-72 hours. 911 for difficulty breathing or swallowing Clinical Impressions Clinical Impression: Sinusitis Instructions Patient Instructions: Sore Throat, DI for Sinusitis, Sinusitis Discharge ED Provider: Anna Barton [facility] General Stated complaint: SORE THROAT. CONESTION Mode of Arrival: Ambulatory Source of Information: Patient Limitations: No Limitations Time Seen by Provider: 09/25/22 18:02 Description of Symptoms (Recalled from Triage Doc. by RN): PATIENT C/O CONGESTION SINCE WEDNESDAY AND SORE THROAT X 2 DAYS HEENT Symptoms (Recalled from RN notes): Yes Resp Symptoms (Recalled from RN notes): No Skin Symptoms (Recalled from RN notes): No MS Symptoms (Recalled from RN notes): No Functional Status (Recalled from RN notes): WNL History of Present Illness Provider Complaint: Patient states that she has been having sinus congestion and pressure since Wednesday and states that she started with sore throat 2 days ago States that hurts when she swallows States that she was worried that she may have strep throat or something Related Data Previous Rx's Medication Instructions Recorded hyoscyamine sulfate 0.125 mg 0.125 mg PO QID #120 tabs 01/28/22 sublingual tablet (Levsin/SL) inulin 2 gram chewable tablet 2 g PO BID #120 tabs 01/28/22 lactase 3,000 unit tablet (Lactaid) 3,000 unit PO QAC #120 tabs 01/28/22
[2022-09-25 18:23] LABS: UTC Strep Screen (Rapid) Negative (Negative)
[2022-09-25 18:24] VITALS: BP 123/76; PULSE 70; RESP 16; TEMP 36.6; O2SAT 99
== END 2022-09-25 18:26 | disposition home or self-care (01) ==
PROVIDERS: Emergency Provider Nurse Practitioner; PCP Physician Assistant
DX: J32.9 Chronic sinusitis, unspecified (principal)
CPT/HCPCS: 87880; 99212; 99213; G0463

== ENCOUNTER 2022-12-25 12:12 | Emergency (ER) | payer OTHER, SELFPAY ==
[2022-12-25 12:15] VITALS: BP 148/86; PULSE 86; RESP 19; TEMP 36.8; O2SAT 99; BMI 31.0
--- NOTE | 2022-12-25 12:29 | EXP.UTC ---
Discharge Plan Disposition Patient Disposition: Home, Self-Care Condition: Good Prescriptions Prescriptions: New amoxicillin [amoxicillin] 875 mg tablet 875 mg PO Q12H Qty: 20 0RF qwlfgxytkdttkwy-qhlqdufbx-UB [Bromfed DM] 2-30-10 mg/5 mL Syrup 5 ml PO Q6H PRN (Reason: Cough) Qty: 240 0RF Referrals Follow up/Referrals: Arianna Davalos PA [Primary Care Provider] - See instructions Activity Restrictions/Add. Instructions Additional Instructions/Restrictions: Drink plenty of fluids. Take tylenol or ibuprofen for pain or fever. Take the medications as directed. Follow up with your regular doctor. GO TO THE ER FOR ANY WORSENING SYMPTOMS Throw your tooth brush away and get a new one. Clinical Impressions Clinical Impression: Strep throat Stand Alone Forms Stand Alone Forms: Work/School Release Instructions Patient Instructions: Strep Throat, DI for Strep Throat Discharge ED Provider: Tay Avalos [facility] General Stated complaint: congestion,sore throat Mode of Arrival: Ambulatory Source of Information: Patient Limitations: No Limitations Time Seen by Provider: 12/25/22 12:19 Description of Symptoms (Recalled from Triage Doc. by RN): PATIENT C/O HEAD CONGESTION AND SORE THROAT SINCE WEDNESDAY HEENT Symptoms (Recalled from RN notes): Yes Resp Symptoms (Recalled from RN notes): No Skin Symptoms (Recalled from RN notes): No MS Symptoms (Recalled from RN notes): No Functional Status (Recalled from RN notes): WNL Related Data Previous Rx's Medication Instructions Recorded amoxicillin 875 mg tablet 875 mg PO Q12H #20 tabs 12/25/22 yrbzjmfqwkeatqw-lwdcjecqkwnkbph-BA 5 ml PO Q6H PRN Cough #240 mL 12/25/22 2 mg-30 mg-10 mg/5 mL oral syrup (Bromfed DM) Allergies Allergy/AdvReac Type Severity Reaction Status Date / Time No Known Allergies Allergy Verified 08/03/22 11:18 Worker's Comp Is this a Worker's Comp case?: No [facility] Disclaimer: The information contained in this section may have been updated after the patient was seen, as this information can be updated by other users. Medical History (Updated 12/25/22 @ 12:44 by Tay Avalos APRN) Irritable bowel syndrome Surgical History (Updated 09/25/22 @ 17:57 by Malaika Rose RN) History of cholecystectomy Social History (Updated 09/25/22 @ 17:57 by Malaika Rose RN) Smoking Status: Unknown if ever smoked alcohol intake: never substance use type: denies use current occupational status: employed Travel in the last 8 weeks: None household members: family and children housing: house current occupation: [employer] current occupational exposures/hazards: No caffeine: Yes ROS Obtained: Yes All systems reviewed & no additional complaints except as documented Constitutional Constitutional: Reports chills and Reports fever(s) Eyes Eyes: Denies eye discharge ENT Ears, Nose, Mouth, and Throat: Reports as per HPI Cardiovascular Cardiovascular: Denies chest pain Respiratory Respiratory: Denies chest congestion and Reports cough Gastrointestinal Gastrointestingal: Reports nausea; Denies abdominal pain, constipation, cramping, diarrhea or vomiting Musculoskeletal Musculoskeletal: Denies arthralgias Integumentary/Breasts Skin/Breast: Denies rash Neurologic Neurologic: Denies paresthesias Physical Exam General General appearance: alert and in no apparent distress Head Head exam: atraumatic, normocephalic and normal inspection Eye Eye exam: Present normal appearance, PERRL and EOMI ENT ENT exam: Present mucous membranes moist and normal external ear exam Expanded ENT Exam TM/Canal exam: Bilateral TM: erythema and bulging Nose exam: Absent sinus tenderness Mouth exam: Present normal external inspection; Absent drooling Teeth exam: Present normal inspection Throat exam: Present tonsillar erythema, tonsillomegaly and tonsillar exudate Neck Neck exam: Present normal inspect
[2022-12-25 12:33] LABS: UTC Strep Screen (Rapid) Positive (Negative)
[2022-12-25 12:48] VITALS: BP 148/86; PULSE 86; RESP 19; TEMP 36.8; O2SAT 99
== END 2022-12-25 12:50 | disposition home or self-care (01) ==
PROVIDERS: Emergency Provider Nurse Practitioner Family; PCP Physician Assistant
DX: J02.0 Streptococcal pharyngitis (principal); R09.81 Nasal congestion
CPT/HCPCS: 87880; 99212; 99214; G0463

== ENCOUNTER → 2023-03-17 16:29 | Outpatient (CLI) | payer OTHER, BC, SELFPAY ==
[2023-03-17 18:45] LABS: HCG,Quantitative 1769 mIU/ml (0-5.42)
[2023-03-19 08:34] LABS: Progesterone 5.3 ng/mL (.)
== END ==
PROVIDERS: PCP Physician Assistant; Visit Provider Obstetrics & Gynecology
DX: N92.6 Irregular menstruation, unspecified (principal); Z32.00 Encounter for pregnancy test, result unknown
CPT/HCPCS: 36415; 84144; 84702

== ENCOUNTER 2023-04-04 18:16 | Emergency (ER) | payer OTHER, BC, SELFPAY ==
[2023-04-04] VITALS (10 sets, daily range): BP systolic 96–128; BP diastolic 47–88; PULSE 80–99; RESP 16–18; TEMP 36.6–36.7; O2SAT 97–100; BMI 30.8
[2023-04-04 18:42] LABS: Microscopic, Urine URINE MICROSCOPIC (MICROSCOPIC)
--- NOTE | 2023-04-04 18:44 | PC.NURSE ---
DR LEBLANC AT BEDSIDE
[2023-04-04 18:56] LABS: Appearance,Urine CLEAR (Clear); Bilirubin,Urine Negative (Negative); Blood, Urine Negative (Negative); Color,Urine YELLOW (Yellow); Glucose,Urine (UA) Negative (Negative); Ketones,Urine Negative (Negative); Leukocyte Esterase,Urine Negative (Negative); Nitrate,Urine Negative (Negative); Protein,Urine Negative (Negative); Specific Gravity, Urine >= 1.030 (1.005-1.030); Urobilinogen,Urine 0.2 EU/dl (0.2)
[2023-04-04 19:05] LABS: Basophils # 0.1 K/mm3 (0-0.2); Basophils % 0.5 % (0.1-2.0); Eosinophils # 0.2 K/mm3 (0.0-0.4); Eosinophils % 1.4 % (0.1-12.0); Hematocrit 38.7 % (37.0-47.0); Hemoglobin 13.1 g/dL (12.2-16.2); Lymphocytes # 2.8 K/mm3 (0.7-4.5); Lymphocytes % 26.1 % (10-50); Mean Corpuscular HGB Conc 33.8 g/dL (31.8-35.4); Mean Corpuscular Hemoglobin 29.8 pg (27.0-31.2); Mean Corpuscular Volume 88.1 fl (81-99); Mean Platelet Volume 8.4 fl (7.4-10.4); Monocytes # 0.4 K/mm3 (0.1-1.0); Monocytes % 3.9 % (1.7-9.3); Neutrophils # 7.2 K/mm3 (1.8-7.8); Neutrophils % 68.1 % (37.0-80.0); Platelet Count 268 K/mm3 (142-424); Red Blood Count 4.39 M/mm3 (4.20-5.40); Red Cell Distribution Width 12.4 % (11.5-17.5); White Blood Count 10.6 K/mm3 (4.8-10.8)
[2023-04-04 19:07] LABS: Chloride 102 mmol/L (98-107); Potassium 3.8 mmoL/L (3.5-5.1); Sodium 137 mmol/L (136-145)
[2023-04-04 19:09] LABS: Blood Urea Nitrogen 9 mg/dl (7-17)
[2023-04-04 19:10] LABS: Alanine Aminotransferase 38 U/L (12-78); Albumin Level 4.2 g/dl (3.5-5.0); Albumin/Globulin Ratio 1.3 (1.1-1.8); Alkaline Phosphatase 61 U/L (38-126); Anion Gap 13.8 mEq/L (5-15); Aspartate Amino Transferase 31 U/L (14-36); Bilirubin,Total 0.3 mg/dl (0.2-1.3); Calcium 9.1 mg/dl (8.4-10.2); Carbon Dioxide 25 mmol/L (22.0-30.0); Creatinine Clearance Estimated 253 mL/min (50-200); Estimated Glomerular Filt Rate 148 ml/min (>60); GFR (African American) 179 ML/MIN (>60); Globulin 3.2 g/dL (1.3-3.2); Glucose 98 mg/dl (74-100); Lipase 71 U/L (23-300); Total Protein,Serum 7.4 g/dl (6.3-8.2)
[2023-04-04 19:26] LABS: Bacteria,Urine Trace /lpf; Squamous Epithelial Cell,Urine Occasional #/hpf (0-5); WBC,Urine Occasional #/hpf (0-3)
--- NOTE | 2023-04-04 19:37 | PC.NURSE ---
[place] denied transfer
[2023-04-04 19:53] LABS: HCG,Quantitative 58968 mIU/ml (0-5.42)
--- NOTE | 2023-04-04 20:14 | US_ITS ---
PROCEDURE INFORMATION: Exam: US , Transvaginal Exam date and time: 04/04/2023 8:34 PM Age: 28 years old Clinical indication: Other: Pelvic pain; Gestational age or lmp: 7 weeks 4 days; ; Additional info: Pain, , unable to visualize on transabd TECHNIQUE: Imaging protocol: Real-time transvaginal obstetrical ultrasound of the maternal pelvis with image documentation. Transvaginal imaging was used for better evaluation of the fetus, adnexa, and/or cervix. COMPARISON: CT ABDOMEN PELVIS W CON 02/16/2021 9:38 PM FINDINGS: Gestation: The yolk sac measures 0.5 cm. heart rate: Estimated heart rate is 152 bpm. Placenta: Small volume fluid is noted adjacent to the gestational sac which may reflect subchorionic hemorrhage. BIOMETRY: Gestational age (AUA): Calculated gestational age is 7 weeks 4 days. [place]-Rump length (CRL): There is a Horn fetus measuring 12.6 cm in crown-rump length. MATERNAL: Right ovary/adnexa: The right ovary measures 2.6 x 2.2 x 1.7 cm. Left ovary/adnexa: The left ovary measures 2.8 x 3.4 x 1.7 cm. Vasculature: There is normal vascular flow to both ovaries. IMPRESSION: Single live intrauterine gestation measuring 7 weeks 4 days. Small fluid adjacent to the gestational sac which may reflect subchorionic hemorrhage but is not measured on this examination. Follow-up study is recommended.
--- NOTE | 2023-04-04 20:17 | PC.NURSE ---
called and requested ultrasound, Huan
--- NOTE | 2023-04-04 20:20 | HMH.EDGENADL ---
Discharge Plan Disposition Patient Disposition: Home, Self-Care Condition: Good Prescriptions Prescriptions: New nitrofurantoin monohyd/m-cryst [Macrobid] 100 mg capsule 100 mg PO BID 5 Days Qty: 10 0RF Rx Instructions: must administer with a meal/food No Action PNV no.170-iron fum-folic acid 27 mg iron- 1 mg tablet 1 tab PO DAILY Qty: 30 11RF progesterone micronized [Prometrium] 200 mg capsule 200 mg vaginal HS Qty: 30 1RF amoxicillin [amoxicillin] 875 mg tablet 875 mg PO Q12H Qty: 20 0RF lwbdqbnrzdmuaqb-jqpmvebno-OE [Bromfed DM] 2-30-10 mg/5 mL Syrup 5 ml PO Q6H PRN (Reason: Cough) Qty: 240 0RF Referrals Follow up/Referrals: Arianna Davalos PA [Primary Care Provider] - See instructions Activity Restrictions/Add. Instructions Additional Instructions/Restrictions: You were evaluated in the emergency department today. Please follow-up closely with your primary care provider over the next 3 days. Also follow-up with your DIE HARDENER. I encourage pelvic rest until you have been cleared. Take Tylenol at home as needed for pain. You may take 600 to 1000 mg every 4-6 hours as needed, but do not exceed 3000 mg in 1 day. production support specialist your prescription for antibiotics and take the full course as prescribed. Return to the emergency department for any new or worsening symptoms. Clinical Impressions Clinical Impression: Subchorionic hemorrhage, Asymptomatic bacteriuria during Instructions Patient Instructions: DI for Acute Abdominal Pain, DI for Abdominal Pain -- Early Discharge ED Provider: Evon Sky General Adult HPI General Chief complaint: Abdominal Pain Stated complaint: abd pain 7 wks Time Seen by Provider: 04/04/23 18:33 Mode of Arrival: Ambulatory Source of Information: Patient Limitations: No Limitations Description of Symptoms (Recalled from ER Triage Doc. by RN): PT C/O INTERMITTENT LOWER ABDOMINAL PAIN, IMPROVES AFTER EATING. PT IS AT 7W2D GESTATION. DENIES VAGINAL BLEEDING OR LEAKING OF FLUID History of Present Illness HPI narrative: This patient is a 28-year-old female G2, P1 presented to the emergency department for evaluation with concern for lower abdominal pain. She states that she is approximately 7 weeks . She states that the pain is aching and nothing seems to make it better or worse. She denies any dysuria, hematuria, abnormal vaginal discharge, bleeding, or leakage of fluid. She also denies any nausea, vomiting, change in bowel movements, or other concerns. She states that she was on progesterone suppositories for low progesterone, however she stopped taking this because she was concerned that it could be causing her pain. She has not yet had a confirmatory ultrasound. Related Data Previous Rx's Medication Instructions Recorded amoxicillin 875 mg tablet 875 mg PO Q12H #20 tabs 12/25/22 kdpzdmrzdnxridf-bhadkeyqbkcgmle-ZV 5 ml PO Q6H PRN Cough #240 mL 12/25/22 2 mg-30 mg-10 mg/5 mL oral syrup (Bromfed DM) vitamins no.170-iron 1 tab PO DAILY #30 tabs 03/18/23 fumarate 27 mg-folic acid 1 mg tablet progesterone micronized 200 mg 200 mg vaginal HS #30 caps 03/19/23 capsule (Prometrium) nitrofurantoin 100 mg PO BID 5 days #10 caps 04/04/23 monohydrate/macrocrystals 100 mg capsule (Macrobid) Allergies Allergy/AdvReac Type Severity Reaction Status Date / Time No Known Allergies Allergy Verified 08/03/22 11:18 [facility] Disclaimer: The information contained in this section may have been updated after the patient was seen, as this information can be updated by other users. Medical History Irritable bowel syndrome Surgical History History of cholecystectomy Social History Smoking Status: Never smoker alcohol intake: never hood
--- NOTE | 2023-04-04 20:36 | PC.NURSE ---
pt going to US with radiation protection technician
--- NOTE | 2023-04-04 21:15 | PC.NURSE ---
Pt returned from u/s
== END 2023-04-04 23:12 | disposition home or self-care (01) ==
PROVIDERS: Emergency Provider Emergency Medicine; PCP Physician Assistant
DX: O41.8X10 Other specified disorders of amniotic fluid and membranes, first trimester, not applicable or unspecified (principal); O23.41 Unspecified infection of urinary tract in pregnancy, first trimester; Z3A.01 Less than 8 weeks gestation of pregnancy
CPT/HCPCS: 76817; 80053; 81001; 83690; 84702; 85025; 86850; 99285

== ENCOUNTER → 2023-04-08 16:56 | Outpatient (CLI) | payer OTHER, BC, SELFPAY ==
[2023-04-08 17:35] LABS: Basophils # 0.1 K/mm3 (0-0.2); Basophils % 0.5 % (0.1-2.0); Eosinophils # 0.1 K/mm3 (0.0-0.4); Eosinophils % 0.9 % (0.1-12.0); Hematocrit 37.6 % (37.0-47.0); Hemoglobin 12.4 g/dL (12.2-16.2); Lymphocytes # 2.9 K/mm3 (0.7-4.5); Lymphocytes % 28.6 % (10-50); Mean Corpuscular Hemoglobin 28.7 pg (27.0-31.2); Mean Corpuscular Volume 87.2 fl (81-99); Mean Platelet Volume 8.8 fl (7.4-10.4); Monocytes # 0.5 K/mm3 (0.1-1.0); Monocytes % 5.2 % (1.7-9.3); Neutrophils # 6.6 K/mm3 (1.8-7.8); Neutrophils % 64.7 % (37.0-80.0); Platelet Count 269 K/mm3 (142-424); Red Blood Count 4.31 M/mm3 (4.20-5.40); Red Cell Distribution Width 12.4 % (11.5-17.5); White Blood Count 10.2 K/mm3 (4.8-10.8)
[2023-04-10 09:23] LABS: HIV Screen 4th Generation wRfx Non Reactive (Non Reactive); Progesterone 8.7 ng/mL (.)
[2023-04-10 11:50] LABS: Rapid Plasma Reagin Ab Titer Non Reactive (NonRea<1:1)
[2023-04-13 09:08] LABS: Neisseria gonorrhoeae, NAA Negative (Negative)
[2023-04-14 09:12] LABS: Hepatitis B Surface Antigen Negative
[2023-04-14 09:13] LABS: Hepatitis C Antibody Non Reactive; Rubella Antibodies, IgG 1.39
== END ==
PROVIDERS: PCP Physician Assistant; Visit Provider Obstetrics & Gynecology
DX: Z34.91 Encounter for supervision of normal pregnancy, unspecified, first trimester (principal); Z3A.01 Less than 8 weeks gestation of pregnancy
CPT/HCPCS: 36415; 84144; 85025; 86593; 86703; 86762; 86850; 87086; 87340; 87380; 87491; 87591; G0432

== ENCOUNTER 2023-05-14 09:19 | Emergency (ER) | payer OTHER, BC, SELFPAY ==
[2023-05-14 09:19] VITALS: BP 129/61; PULSE 91; RESP 18; TEMP 36.5; O2SAT 98; BMI 30.6
--- NOTE | 2023-05-14 09:36 | EXP.UTC ---
Discharge Plan Disposition Patient Disposition: Home, Self-Care Condition: Good Prescriptions Prescriptions: No Action DHA 200 mg capsule PO ascorbic acid (vitamin C) 250 mg tablet 500 mg PO DAILY PNV no.170-iron fum-folic acid 27 mg iron- 1 mg tablet 1 tab PO DAILY Referrals Follow up/Referrals: Arianna Davalos PA [Primary Care Provider] - See instructions Activity Restrictions/Add. Instructions Additional Instructions/Restrictions: Drink plenty of fluids. Take tylenol for pain or fever. Follow up with your regular doctor. GO TO THE ER FOR ANY WORSENING SYMPTOMS Clinical Impressions Clinical Impression: Acute viral syndrome Stand Alone Forms Stand Alone Forms: Work/School Release Instructions Patient Instructions: DI for Viral Syndrome Discharge ED Provider: Tay Avalos [facility] General Stated complaint: sore throat Time Seen by Provider: 05/14/23 09:36 History of Present Illness Provider Complaint: She states that for the past 2 days she has had sore throat and sinus drainage. She is 13 weeks . She denies fever/chills/body aches. Related Data Home Medications Medication Instructions Recorded Confirmed ascorbic acid (vitamin C) 250 mg 500 mg PO DAILY Supplement 04/08/23 05/14/23 tablet docosahexaenoic acid 200 mg mg PO 04/08/23 05/06/23 capsule ( DHA) vitamins no.170-iron 1 tab PO DAILY Supplement 05/14/23 05/14/23 fumarate 27 mg-folic acid 1 mg tablet Allergies Allergy/AdvReac Type Severity Reaction Status Date / Time No Known Allergies Allergy Verified 05/14/23 09:43 [facility] Disclaimer: The information contained in this section may have been updated after the patient was seen, as this information can be updated by other users. Medical History Gastroenteritis Irritable bowel syndrome Subchorionic hemorrhage Surgical History History of back surgery diana in back for scoliosis History of cholecystectomy Family History Father Diabetes Social History Smoking Status: Never smoker alcohol intake: never substance use type: denies use current occupational status: employed Travel in the last 8 weeks: None household members: family and children housing: house current occupation: [employer] current occupational exposures/hazards: No caffeine: Yes ROS Obtained: Yes All systems reviewed & no additional complaints except as documented Constitutional Constitutional: Denies body ache, Denies chills and Denies fever(s) Eyes Eyes: Denies eye discharge ENT Ears, Nose, Mouth, and Throat: Reports as per HPI Cardiovascular Cardiovascular: Denies chest pain Respiratory Respiratory: Denies chest congestion and Reports cough Gastrointestinal Gastrointestingal: Reports nausea; Denies abdominal pain, constipation, cramping, diarrhea or vomiting Musculoskeletal Musculoskeletal: Denies arthralgias Integumentary/Breasts Skin/Breast: Denies rash Neurologic Neurologic: Denies paresthesias Physical Exam General General appearance: alert and in no apparent distress Head Head exam: atraumatic, normocephalic and normal inspection Eye Eye exam: Present normal appearance, PERRL and EOMI ENT ENT exam: Present normal exam, normal oropharynx, mucous membranes moist, TM's normal bilaterally and normal external ear exam Neck Neck exam: Present normal inspection, full ROM and trachea midline; Absent meningismus or lymphadenopathy Chest Chest inspection: Present normal inspection and symmetric chest wall rise; Absent tenderness Respiratory Respiratory exam: Present normal lung sounds bilaterally; Absent respiratory distress Cardiovascular Cardiovascular exam: Present regular rate and norm
[2023-05-14 09:47] LABS: UTC Strep Screen (Rapid) Negative (Negative)
[2023-05-14 10:33] VITALS: BP 129/61; PULSE 91; RESP 18; TEMP 36.5; O2SAT 98
[2023-05-14 11:27] LABS: Adenovirus,PCR Not Detected (NotDetected); Coronavirus 19, PCR Not Detected (NotDetected); Coronavirus 229E Not Detected (NotDetected); Coronavirus NL63 Not Detected (NotDetected); Coronavirus OC43 Not Detected (NotDetected); Coronovirus HKU1,PCR Not Detected (NotDetected); Human Metapneumovirus Not Detected (NotDetected); Influenza A, PCR Not Detected (NotDetected); Influenza AH1, 2009 Not Detected (NotDetected); Influenza AH1, PCR Not Detected (NotDetected); Influenza AH3,PCR Not Detected (NotDetected); Influenza B, PCR Not Detected (NotDetected); Parainfluenza 1, PCR Not Detected (NotDetected); Parainfluenza 2, PCR Not Detected (NotDetected); Parainfluenza 3, PCR Not Detected (NotDetected); Parainfluenza 4, PCR Not Detected (NotDetected); Respiratory Syncytial Virus Not Detected (NotDetected)
[2023-05-14 15:37] LABS: Rhinovirus/Enterovirus Detected (NotDetected)
== END 2023-05-14 10:33 | disposition home or self-care (01) ==
PROVIDERS: Emergency Provider Nurse Practitioner Family; PCP Physician Assistant
DX: O26.892 Other specified pregnancy related conditions, second trimester (principal); O98.512 Other viral diseases complicating pregnancy, second trimester; B34.8 Other viral infections of unspecified site; Z3A.13 13 weeks gestation of pregnancy; K58.9 Irritable bowel syndrome, unspecified
CPT/HCPCS: 87632; 87635; 87880; 99212; 99214; G0463

== ENCOUNTER → 2023-06-30 14:50 | Outpatient (CLI) | payer OTHER, BC, SELFPAY ==
--- NOTE | 2023-06-30 14:51 | US_ITS ---
PROCEDURE: US OB /MATERNAL DETAIL CLINICAL INDICATION: 20 week anatomy scan COMPARISON: US US OB TRANSVAGINAL from 04/04/2023 FINDINGS: Transabdominal sonographic images of the pelvis were obtained. From her established due date she is 19 weeks 5 days. Single viable intrauterine gestation. Breech position. Placenta: Posteriorplacenta grade 1. There is an average amount of fluid. MVP 5.7 cm. The cervix appears satisfactory. Closed and measuring 3.1 cm in length. Complete survey performed and was unremarkable on the submitted images as in PACS. No discrete anomalies identified on survey imaging by technologist. Active fetus. Three-vessel cord with satisfactory umbilical cord insertion. 4- chamber heart noted. Situs, aortic arch, LVOT, RVOT, three-vessel view appear normal. Survey of brain & ventricles Unremarkable. Cerebellum, thalamus, choroid plexus, cisterna magna appear normal. Face and neck survey unremarkable. Profile, nasion, lips and nose appeared normal. Diaphragm and chest views unremarkable. Abdomen: Both kidneys noted and unremarkable. Stomach and bladder noted and satisfactory. Spine: Survey of the spine satisfactory with no anomalies identified nor imaged. Cervical, thoracic, lower spine appear normal. Both arms and legs noted. Amniotic Fluid: Adequate. Measurements: Average ultrasound age 20weeks 1day. Estimated due date by ultrasound age 0411/16/2023. Estimated weight 321g BPD = 20weeks 1day HC = 20weeks 1day AC = 20weeks 3days FL = 19weeks 4days Growth Percentile= 58 Heart Rate = 142bpm Cerebellum = 19weeks 5days Humerus = 20weeks HC/AC is 1.16 FL/BPD is 0.66 FL/AC is 0.2 IMPRESSION: 1. Viable fetus in the breech presentation with a posterior placenta grade 1. 2. The fluid is within normal normal limits. MVP 5.7 cm. 3. Anatomy scan appears normal. 4. biometry is consistent with a dates. Dictated by: Yuniel Quick MD 07/02/2023 11:20 Yuniel Quick MD in OV 07/02/2023 11:20
== END ==
PROVIDERS: PCP Physician Assistant; Visit Provider Obstetrics & Gynecology
DX: Z34.92 Encounter for supervision of normal pregnancy, unspecified, second trimester (principal); Z3A.20 20 weeks gestation of pregnancy
CPT/HCPCS: 76811

== ENCOUNTER 2023-08-26 08:03 | Outpatient (CLI) | payer BC, SELFPAY ==
[2023-08-26 08:26] LABS: Basophils # 0.1 K/mm3 (0-0.2); Basophils % 0.6 % (0.1-2.0); Eosinophils # 0.1 K/mm3 (0.0-0.4); Eosinophils % 0.9 % (0.1-12.0); Hematocrit 36.7 % (37.0-47.0); Hemoglobin 12.4 g/dL (12.2-16.2); Lymphocytes # 2.8 K/mm3 (0.7-4.5); Lymphocytes % 25.9 % (10-50); Mean Corpuscular HGB Conc 33.8 g/dL (31.8-35.4); Mean Corpuscular Hemoglobin 30.6 pg (27.0-31.2); Mean Corpuscular Volume 90.6 fl (81-99); Mean Platelet Volume 8.4 fl (7.4-10.4); Monocytes # 0.5 K/mm3 (0.1-1.0); Neutrophils # 7.2 K/mm3 (1.8-7.8); Neutrophils % 67.5 % (37.0-80.0); Platelet Count 254 K/mm3 (142-424); Red Blood Count 4.06 M/mm3 (4.20-5.40); Red Cell Distribution Width 13.3 % (11.5-17.5); White Blood Count 10.7 K/mm3 (4.8-10.8)
[2023-08-26 08:37] LABS: Glucose,Fasting 93 mg/dl (74-100)
[2023-08-26 10:20] LABS: Glucose 1 Hour 126 mg/dL (74-100)
== END 2023-08-26 23:59 ==
LOC: LAB 08:04
PROVIDERS: PCP Physician Assistant; Visit Provider Obstetrics & Gynecology
DX: Z34.92 Encounter for supervision of normal pregnancy, unspecified, second trimester (principal); Z3A.27 27 weeks gestation of pregnancy
CPT/HCPCS: 36415; 82951; 85025

== ENCOUNTER 2023-10-25 16:42 | Outpatient (CLI) | payer BC, SELFPAY | END 2023-10-25 23:59 | LOC: LAB.DROPOF 16:42 | PROVIDERS: PCP Obstetrics & Gynecology; Visit Provider Obstetrics & Gynecology | DX: O26.893 Other specified pregnancy related conditions, third trimester (principal); Z3A.32 32 weeks gestation of pregnancy | CPT/HCPCS: 86403 ==

== ENCOUNTER 2023-11-04 14:27 | Outpatient (CLI) | payer BC, SELFPAY ==
[2023-11-04 14:41] VITALS: BMI 33.3
[2023-11-04 14:47] LABS: Microscopic, Urine URINE MICROSCOPIC (MICROSCOPIC)
[2023-11-04 14:58] VITALS: BP 132/80; PULSE 105; RESP 18; TEMP 36.3; O2SAT 99; BMI 33.3
[2023-11-04 15:06] LABS: Amphetamine/Metha Screen,Urine Negative ng/ml (<1000)
[2023-11-04 15:07] LABS: Barbiturates Screen,Urine Negative ng/ml (<200)
[2023-11-04 15:08] LABS: Benzodiazepines Screen,Urine Negative ng/ml (<200); Cannabinoid Screen,Urine Negative ng/ml (<50)
[2023-11-04 15:09] LABS: Cocaine Screen,Urine Negative ng/ml (<300); Methadone Screen,Urine Negative ng/ml (<300)
[2023-11-04 15:10] LABS: Opiate Screen,Urine Negative ng/ml (<300)
[2023-11-04 15:11] LABS: Phencyclidine Screen,Urine Negative ng/ml (<25)
[2023-11-04 15:13] LABS: Appearance,Urine SL CLOUDY (Clear); Bilirubin,Urine Negative (Negative); Blood, Urine Negative (Negative); Color,Urine YELLOW (Yellow); Glucose,Urine (UA) Negative (Negative); Ketones,Urine Negative (Negative); Leukocyte Esterase,Urine 1+ (Negative); Nitrate,Urine Negative (Negative); PH,Urine 5.5 (5.0-8.5); Protein,Urine TRACE (Negative); Specific Gravity, Urine >= 1.030 (1.005-1.030); Urobilinogen,Urine 0.2 EU/dl (0.2)
[2023-11-04 15:39] LABS: Bacteria,Urine 1+ /lpf; RBC,Urine Occasional #/hpf (0-3)
== END 2023-11-04 15:50 | disposition home or self-care (01) ==
LOC: OBOUT 14:28 → OB 14:29
PROVIDERS: PCP Physician Assistant; Visit Provider Obstetrics & Gynecology
DX: O26.893 Other specified pregnancy related conditions, third trimester (principal); Z3A.37 37 weeks gestation of pregnancy; B96.89 Other specified bacterial agents as the cause of diseases classified elsewhere
CPT/HCPCS: 80307; 81001; 87086; G0463

== ENCOUNTER 2023-11-21 03:46 | Inpatient (IN) | payer BC, SELFPAY ==
[2023-11-21 03:10] VITALS: BMI 33.0
[2023-11-21 03:15] VITALS: BP 125/74; PULSE 88; RESP 17; TEMP 36.8; O2SAT 97
[2023-11-21 03:26] VITALS: BP 125/74; PULSE 88; RESP 17; TEMP 36.8; O2SAT 97; BMI 33.1
[2023-11-21 03:28] LABS: Microscopic, Urine URINE MICROSCOPIC (MICROSCOPIC)
[2023-11-21 03:30] LABS: Appearance,Urine CLEAR (Clear); Bilirubin,Urine Negative (Negative); Blood, Urine 1+ (Negative); Color,Urine YELLOW (Yellow); Glucose,Urine (UA) Negative (Negative); Ketones,Urine Negative (Negative); Leukocyte Esterase,Urine TRACE (Negative); Nitrate,Urine Negative (Negative); PH,Urine 7.5 (5.0-8.5); Protein,Urine Negative (Negative); Specific Gravity, Urine 1.015 (1.005-1.030); Urobilinogen,Urine 0.2 EU/dl (0.2)
[2023-11-21 03:39] LABS: Fetal Membrane Rupture (Rapid) Positive (Negative)
[2023-11-21 03:41] LABS: Amphetamine/Metha Screen,Urine Negative ng/ml (<1000)
[2023-11-21 03:42] LABS: Barbiturates Screen,Urine Negative ng/ml (<200)
[2023-11-21 03:43] LABS: Benzodiazepines Screen,Urine Negative ng/ml (<200); Cannabinoid Screen,Urine Negative ng/ml (<50)
[2023-11-21 03:44] LABS: Cocaine Screen,Urine Negative ng/ml (<300); Methadone Screen,Urine Negative ng/ml (<300)
[2023-11-21 03:45] LABS: Opiate Screen,Urine Negative ng/ml (<300)
[2023-11-21 03:46] LABS: Bacteria,Urine Trace /lpf; Phencyclidine Screen,Urine Negative ng/ml (<25)
[2023-11-21 04:24] LABS: Basophils # 0.1 K/mm3 (0-0.2); Basophils % 1.3 % (0.1-2.0); Eosinophils # 0.1 K/mm3 (0.0-0.4); Eosinophils % 0.9 % (0.1-12.0); Hematocrit 37.5 % (37.0-47.0); Hemoglobin 12.5 g/dL (12.2-16.2); Lymphocytes # 2.9 K/mm3 (0.7-4.5); Lymphocytes % 25.7 % (10-50); Mean Corpuscular HGB Conc 33.3 g/dL (31.8-35.4); Mean Corpuscular Hemoglobin 29.9 pg (27.0-31.2); Mean Corpuscular Volume 89.8 fl (81-99); Mean Platelet Volume 9.3 fl (7.4-10.4); Monocytes # 0.6 K/mm3 (0.1-1.0); Monocytes % 5.6 % (1.7-9.3); Neutrophils # 7.5 K/mm3 (1.8-7.8); Neutrophils % 66.5 % (37.0-80.0); Platelet Count 254 K/mm3 (142-424); Red Blood Count 4.17 M/mm3 (4.20-5.40); Red Cell Distribution Width 13.6 % (11.5-17.5); White Blood Count 11.2 K/mm3 (4.8-10.8)
[2023-11-21] MEDS: OXYTOCIN/RINGERS LACTATE 30 UNITS/500 ML BAG IV (04:54)
[2023-11-21] MEDS: DEXTROSE 5%-LACTATED RINGERS 1,000 ML 125 ML IV (04:55)
[2023-11-21] MEDS: LACTATED RINGERS 1000ML 1,000 ML 500 ML IV ×2 (04:55→10:45)
[2023-11-21 07:15] VITALS: BP 113/79; PULSE 70; RESP 16; TEMP 36.5; O2SAT 98
--- NOTE | 2023-11-21 09:31 | P.HP_ITS ---
OB - H&P: HPI Antepartum History of Present Illness Chief complaint: Leakage of fluid History of present illness: Ms John Hinton is a 28 yo at 40w2d, by LMP and confirmed by 8 week ultrasound, who presents to [facility] Labor and Delivery with complaint of leakage of fluid that woke her from sleep around 0230 this morning. Denies contractions. Baby is very active. No vaginal bleeding. She has had good care. GBS negative. History of Present Criteria for establishing EDC:: LMP confirmed by 1st trimester US care: good care Ultrasounds: normal mid trimester US Obstetrical complications: none Medical complications: none Labs Blood type: A (+) positive Rubella: immune RPR/VDRL: nonreactive GBS status: negative HBsAG: negative PFSH [facility] Disclaimer: The information contained in this section may have been updated after the patient was seen, as this information can be updated by other users. Medical History (Updated 11/21/23 @ 09:36 by Debbie Samayoa DO) Spontaneous rupture of membranes Post term over 40 weeks Headache Screening for genetic disease carrier status Subchorionic hemorrhage Irritable bowel syndrome Gastroenteritis Surgical History History of back surgery History of cholecystectomy Family History Father Diabetes Social History (Updated 11/21/23 @ 04:32 by Teena Santos, RN) Smoking Status: Never smoker alcohol intake: never substance use type: denies use current occupational status: unemployed Travel in the last 8 weeks: None household members: family and children housing: house current occupation: [employer] current occupational exposures/hazards: No caffeine: Yes Review of Systems Review of Systems Review of systems:: pertinent systems reviewed and negative unless documented below Meds Home Medications and Allergies Home Medications Medication Instructions Recorded Confirmed Type ascorbic acid (vitamin C) 250 mg 500 mg PO DAILY Supplement 04/08/23 11/15/23 History tablet vitamin with calcium 1 tab PO DAILY 08/26/23 11/15/23 History no.72-iron 27 mg-folic acid 1 mg tablet (WesTab Plus) magnesium oxide 400 mg PO BID 11/08/23 11/15/23 History New Prescriptions to Start Prescriptions: Allergies Allergy/AdvReac Type Severity Reaction Status Date / Time No Known Allergies Allergy Verified 11/15/23 13:26 OB - H&P: Exam Physical Exam Vital signs: Temp Pulse Resp BP Pulse Ox O2 Del Method 97.7 F 70 16 113/79 98 Room Air 11/21/23 07:15 11/21/23 07:15 11/21/23 07:15 11/21/23 07:15 11/21/23 07:15 11/21/23 07:15 Constitutional no acute distress and cooperative Routine HEENT Exam Head: Present normocephalic and atraumatic Eye: Absent conjunctivae pink ENT: Present mucous membranes moist Routine Neck Exam Present full ROM Routine Respiratory Exam Present CTA bilaterally and normal respiratory effort Routine Cardiovascular Exam Present RRR Routine Abdominal Exam Present soft (Gravid); Absent tenderness Routine Rectal Exam Patient deferred: visual exam Routine Exam External: Present normal urethra appearance; Absent erythema, tenderness, lesions or lacerations Routine Extremities Exam Present full ROM; Absent edema or calf tenderness Routine Neurological Exam Present alert, moving all extremities and normal speech Routine Psychiatric Exam Present normal affect and cooperative Detailed Labor and Delivery Exam Dilation (cm): 5 Effacement (%): 60 Cervix position: mid station: -1 Consistency: soft Membranes: spontaneously ruptured (0230 on 11/21/23) Amniotic fluid: clear Baseline heart rate: 125 monitor accelerations: Present monitor decelerations: None correction variability: Moderate (11-25) Contraction frequency (min): 3 OB - Results Labs Labs: Short CBC 11/21/23 Range/Units 04:10 WBC 11.2 H (4.8-10.8) K/mm3 Hgb 12.5 (12.2-16.2) g/dL Hct 37.5 (37.0-47.0) % Plt Count 254 (142-424) K/mm3 Urine 11/21/23 Range/Units 03:13 Urine Color Yellow (Yellow) Urine Appearance Clear (Clear) Urine pH 7.5 (5.0-8.5) Ur Specific [place] 1.015 (1.005-1.030) Urine Protein Negative (Negative) Urine Glucose (UA) Negative (Negative) OB - A/P Antepartum (1) Post term over 40 weeks: Status: Acute (2) Spontaneous rupture of membranes: Status: Acute Additional Plan Planning to breastfeed?: Yes Plan: other (labor augmentation) Additional Information:: Admit to [facility] L&D Augment labor with Pitocin GBS negative Close monitoring Anticipate
[2023-11-21 09:56] VITALS: TEMP 36.3
[2023-11-21] MEDS: ONDANSETRON 4MG/2ML VIAL 2 MG IV (10:46)
[2023-11-21 11:15] VITALS: TEMP 36.3
--- NOTE | 2023-11-21 11:30 | P.PNANES_ITS ---
[facility] Disclaimer: The information contained in this section may have been updated after the patient was seen, as this information can be updated by other users. Medical History (Updated 11/21/23 @ 09:36 by Debbie Samayoa DO) Spontaneous rupture of membranes Post term over 40 weeks Headache Screening for genetic disease carrier status Subchorionic hemorrhage Irritable bowel syndrome Gastroenteritis Surgical History History of back surgery History of cholecystectomy Family History Father Diabetes Social History (Updated 11/21/23 @ 04:32 by Teena Santos RN) Smoking Status: Never smoker alcohol intake: never substance use type: denies use current occupational status: unemployed Travel in the last 8 weeks: None household members: family and children housing: house current occupation: [employer] current occupational exposures/hazards: No caffeine: Yes [facility] Anesthesia Checklist Patient Identification Patient Identification: Arm Band Structural Data Admitted From: Inpatient Planned Operative Procedure/s: Labor Epidural Consent for Planned Operative Procedure(s) Verified: Yes Verified Documents: Surgical Consent and History and Physical NPO Status Verified Time NPO: 00:00 Additional verifications Anesthesia Reactions: No Hx Blood Transfusions: No Blood Transfusion Reaction: No Airway Assessment Dentition: Good Dentition Neurological Assessment Level of Consciousness: Awake, Alert and Appropriate Anesthesia Plan Anesthesia Risk discussed: Yes Anesthesia Plan: Verified ASA Class: II Anesthesia Type: Spinal Preoperative Comments Pre-Operative Comments: Pt states that she has diana in her back from surgery to fix scoliosis as a child. I discussed with pt the risks of this making epidural placement difficult along with increased risk of epidural complications including post dural puncture headache, patchy epidural blockade, bleeding, etc.
[2023-11-21] MEDS: OXYTOCIN/RINGERS LACTATE 30 UNITS/500 ML BAG 999 UNITS IV (12:15)
[2023-11-21] MEDS: OXYTOCIN/RINGERS LACTATE 30 UNITS/500 ML BAG 40 UNITS IV (12:30)
[2023-11-21] MEDS: WITCH HAZEL 40 PADS/BOX 1 EACH TP (12:32)
[2023-11-21] MEDS: BENZOCAINE-MENTHOL SPRAY 56GM CAN TP (12:32)
--- NOTE | 2023-11-21 12:37 | EXP.DN ---
Delivery Note Delivery Date:: 11/21/23 Delivery Time:: 12:12 Anesthesia Type: Spinal Was labor medically induced?: No Gestational age (weeks): 40 delivered prior to 39 weeks?: No Infant Gender: Male at 1 minute: 7 at 5 minutes: 9 LAC or MLE?: LAC Delivery Procedure:: Mom complete with spinal anesthesia. Pushed for approximately 3 minutes. Head delivered spontaneously over intact perineum in KRYSTYNA position. Nuchal cord x 1 easily reduced. Anterior shoulder delivered spontaneously. Posterior shoulder and remainder of body delivered spontaneously. Baby placed on maternal abdomen, mouth and nares bulb suctioned, warmed/dried and stimulated. Delayed cord clamping was performed for 60 seconds. Cord was clamped and cut by grandmother of baby. Cord blood was obtained. Placenta delivered spontaneously and intact. Second degree perineal laceration repaired with 3-0 Vicryl. Hemostasis noted. Mom and baby were skin to skin and doing well after delivery. Live male baby (baby's name is Shayne) APGARs & (1 min), 9 (5 min) EBL 200 mL Laceration:: vaginal Placental Delivery Description: Spontaneous
[2023-11-21] MEDS: ACETAMINOPHEN 500MG TAB 1000 MG PO (16:46)
[2023-11-21] MEDS: IBUPROFEN 400 MG TABLET 800 MG PO (16:46)
[2023-11-22] MEDS: ACETAMINOPHEN 500MG TAB 1000 MG PO (00:34)
[2023-11-22] MEDS: IBUPROFEN 400 MG TABLET 800 MG PO (00:34)
[2023-11-22 06:44] LABS: Basophils # 0.1 K/mm3 (0-0.2); Basophils % 0.8 % (0.1-2.0); Eosinophils # 0.1 K/mm3 (0.0-0.4); Eosinophils % 0.7 % (0.1-12.0); Hematocrit 33.4 % (37.0-47.0); Hemoglobin 11.2 g/dL (12.2-16.2); Lymphocytes # 2.9 K/mm3 (0.7-4.5); Lymphocytes % 24.1 % (10-50); Mean Corpuscular HGB Conc 33.4 g/dL (31.8-35.4); Mean Corpuscular Hemoglobin 30.1 pg (27.0-31.2); Mean Corpuscular Volume 90.1 fl (81-99); Mean Platelet Volume 10.1 fl (7.4-10.4); Monocytes # 0.6 K/mm3 (0.1-1.0); Monocytes % 5.2 % (1.7-9.3); Neutrophils # 8.5 K/mm3 (1.8-7.8); Neutrophils % 69.2 % (37.0-80.0); Platelet Count 211 K/mm3 (142-424); Red Blood Count 3.71 M/mm3 (4.20-5.40); Red Cell Distribution Width 13.3 % (11.5-17.5); White Blood Count 12.2 K/mm3 (4.8-10.8)
--- NOTE | 2023-11-22 08:25 | P.DS_ITS ---
General Admission date:: 11/21/23 Discharge date: 11/22/23 HPI HPI HPI: PPD # 1 s/p Feeling well. Pain controlled. Breast feeding. Lochia is appropriate. Voiding without difficulty and passing flatus. Tolerating regular diet. Denies fever/chills, chest pain and shortness of breath. No headaches, vision changes, lightheadedness/dizziness. She admits to lower extremity swelling. No cald pain. Ambulating well ad yunior. Hospital Course Hospital Course Hospital Course: Ms John Hinton is a 28 yo at 40w2d, by LMP and confirmed by 8 week ultrasound, who presented to [facility] Labor and Delivery with complaint of leakage of fluid that woke her from sleep around 0230 this morning. Denies contractions. Baby is very active. No vaginal bleeding. She has had good care. GBS negative. Amnisure positive. She had a normal spontaneous vaginal delivery on 11/21/23 at 1212. She delivered a live male baby, Bella, weighing 8 lb 1 oz. APGARs 7 (1 min), 9 (5 min). EBL 200 mL. She did well . Pain controlled. Breast feeding. Lochia appropriate. Voiding without difficulty and passing flatus. Tolerating regular diet. Denies fever/chills, chest pain and shortness of breath. No headaches, dizziness/lightheadedness or vision changes. Vital signs stable, afebrile. Heart regular rate and rhythm. Lungs clear to auscultation. Abdomen soft, nontender. She had +1 bilateral lower extremity swelling; no calf tenderness. Ambulating well ad yunior. Normal hospital course. She was discharged to home on POD # 2 with instructions to follow-up in the office in 2 weeks or sooner if needed. Exam Data for Last 24 hours Vital signs and Labs for Last 24 Hours: Temp Pulse Resp BP Pulse Ox O2 Del Method 97.4 F L 70 16 113/79 98 Room Air 11/21/23 11:15 11/21/23 07:15 11/21/23 07:15 11/21/23 07:15 11/21/23 07:15 11/21/23 07:15 Laboratory Results - last 24 hr 11/22/23 06:30: WBC 12.2 H, RBC 3.71 L, Hgb 11.2 L, Hct 33.4 L, MCV 90.1, MCH 30.1, MCHC 33.4, RDW 13.3, Plt Count 211, MPV 10.1, Neut % (Auto) 69.2, Lymph % (Auto) 24.1, Hart % (Auto) 5.2, Eos % (Auto) 0.7, Baso % (Auto) 0.8, Neut # (Auto) 8.5 H, Lymph # (Auto) 2.9, Hart # (Auto) 0.6, Eos # (Auto) 0.1, Baso # (Auto) 0.1 I & O for Last 24 hours: Intake & Output 11/19/23 11/20/23 11/21/23 11/22/23 23:59 23:59 23:59 23:59 Weight 224 lb 0.011 oz Constitutional Constitutional: no acute distress and cooperative *Routine HEENT Exam Head: Present normocephalic and atraumatic Eye: Absent conjunctivae pink ENT: Present mucous membranes moist *Routine Neck Exam Neck: Present full ROM *Routine Respiratory Exam Respiratory: Present CTA bilaterally and normal respiratory effort *Routine Cardiovascular Exam Cardiovascular: Present RRR *Routine Abdominal Exam Abdominal: Present soft and normoactive bowel sounds; Absent tenderness or distended Comments: Uterine fundus firm and below umbilicus *Routine Rectal Exam Patient deferred: visual exam *Routine Exam Patient deferred: external exam *Routine Extremities Exam Extremities: Present edema (+1 bilateral lower extremity edema) and full ROM; Absent calf tenderness *Routine Neurological Exam Neurological: Present alert, moving all extremities and normal speech Routine Psychiatric Exam Psychiatric: Present normal affect and cooperative Results Data Completed and Pending Labs on day of discharge: Labs from last 24 hours 11/22/23 06:30 WBC 12.2 H RBC 3.71 L Hgb 11.2 L Hct 33.4 L MCV 90.1 MCH 30.1 MCHC 33.4 RDW 13.3 Plt Count 211 MPV 10.1 Neut % (Auto) 69.2 Lymph % (Auto) 24.1 Hart % (Auto) 5.2 Eos % (Auto) 0.7 Baso % (Auto) 0.8 Neut # (Auto) 8.5 H Lymph # (Auto) 2.9 Hart # (Auto) 0.6 Eos # (Auto) 0.1 Baso # (Auto) 0.1 DS: Diagnosis Discharge Diagnosis (1) Status post vaginal delivery: Status: Acute (2) Post term over 40 weeks: Status: Acute Code(s): O48.0 - Post-term (3) Spontaneous rupture of membranes: Status: Acute Meds Home Medications and Allergies Home Medications Medication Instructions Recorded Confirmed Type ascorbic acid (vitamin C) 250 mg 500 mg PO DAILY Supplement 04/08/23 11/21/23 History tablet vitamin with calcium 1 tab PO DAILY 08/26/23 11/21/23 History no.72-iron 27 mg-folic acid 1 mg tablet (WesTab Plus) magnesium oxide 400 mg PO BID 11/08/23 11/21/23 History ibuprofen 800 mg tablet 800 mg PO Q8H PRN pain #20 tabs 11/22/23 Rx New Prescriptions to Start Prescriptions: Debbie Ibarra Allergies Allergy/AdvReac Type Severity Reaction Status Date / Time No Known Allergies Allergy Verified 11/15/23 13:26 Discharge Plan Disposition Patient Disposition: Home, Self-Care Condition: Good Discharge Order Discharge Orders: Discharge Order (Routine); Ordered 11/22/23 Ordered By: Debbie Samayoa Follow up Plan Follow up with: Debbie Samayoa DO [Staff Physician] - 2 weeks Prescriptions/Medication Reconciliation: New ibuprofen 800 mg tablet 800 mg PO Q8H PRN (Reason: pain) Qty: 20 0RF Continued ascorbic acid (vitamin C) 250 mg tablet 500 mg PO DAILY WesTab Plus 27 mg iron- 1 mg tablet 1 tab PO DAILY Patient Comments: TAKE 1 TABLET BY MOUTH ONCE DAILY magnesium oxide 400 mg magnesium capsule 400 mg PO BID Problem Reconciliation Problems Reviewed?: Yes Patient Discharge Instructions ACTIVITY: Limited activity DIET: continue same diet and regular diet Additional Instructions: Discharge: 1. Take 800 mg Ibuprofen every 8 hours as needed for pain. You can also take 5 00-1000 mg of Tylenol in between doses, every 6-8 hours. 2. Nothing in the vagina for 6 weeks - no intercourse, douching or tampons. No tub baths/hot tubs or swimming pools 3. Reasons to return to L&D or call On-Call doctor - fever (greater than 100.4) - heavy vaginal bleeding (soaking through 1 pad in less than 2 hours) - vaginal discharge (malodorous and/or purulent) - severe headaches not resolved by medication or rest and leg tenderness/edema 4. depression/blues - Normal to feel anxious/overwhelmed for first 2 weeks - Talk to your doctor if: severe anxiety, trouble bonding with baby, withdrawing from other family members, thoughts of harming yourself or others Debbie Samayoa DO [facility] [place] [phone] Patient Instructions: Depression, Hemorrhage, DI for Labor and Delivery, Vaginal , DI for Pre-eclampsia, [facility] Post Discharge Instructions Providers Primary Care Provider: Arianna Davalos Admit Provider: Debbie Samayoa Attending Provider: Debbie Samayoa
== END 2023-11-22 16:58 | disposition home or self-care (01) | DRG 807 ==
LOC: OBOUT 03:47 → OB 03:47
PROVIDERS: Admitting Provider Obstetrics & Gynecology; PCP Physician Assistant; Visit Provider Obstetrics & Gynecology
DX: O48.0 Post-term pregnancy (principal); Z37.0 Single live birth; Z3A.40 40 weeks gestation of pregnancy; O69.81X0 Labor and delivery complicated by cord around neck, without compression, not applicable or unspecified; O70.1 Second degree perineal laceration during delivery
CPT/HCPCS: 59409; 36415; 59025; 80307; 81001; 84112; 85025; 86850; 94761; G0283; J2405